=== PATIENT | male | born 1960 | race Caucasian/White ===

== ENCOUNTER 2017-02-23 19:44 | Inpatient (IN) | payer OTHER ==
[~2017-02-23] VITALS: Ht 208.3 cm; Wt 88.0 kg
[2017-02-23] MEDS ORDERED: LISINOPRIL10 M1 PO (20:00)
[2017-02-23] MEDS ORDERED: ALPRAZOLAM1 M2 PO (20:00)
--- NOTE | 2017-02-23 20:00 | ED GENERAL ADULT ---
History of Present Illness General Chief Complaint: General Adult Stated Complaint: BIBA SEPSIS Source: patient, EMS Exam Limitations: no limitations Vital Signs & Intake/Output Vital Signs & Intake/Output Vital Signs Date Time Temp Pulse Resp B/P B/P Pulse O2 O2 Flow FiO2 Mean Ox Delivery Rate 02/23 2043 99.1 95 18 121/67 98 Room Air Room Air 02/24 2032 97 Room Air Room Air 02/24 2004 100.0 98 18 116/60 99 Room Air Allergies Coded Allergies: No Known Allergies (02/23/17) Reconcile Medications Acetaminophen (Tylenol Extra Strength) 500 MG TABLET 2 TAB PO PRN PAIN ( Reported) Alprazolam 1 MG TABLET 1 TAB PO QHS PRN ANXIETY (Reported) Bupropion HCl (Bupropion XL) 300 MG TAB.ER.24H 1 TAB PO DAILY MENTAL HEALTH ( Reported) Dextroamphetamine/Amphetamine (Dextroamp-Amphet ER 20 MG Cap) 20 MG CAP.ER.24H 1 CAP PO QAM UNKNOWN (Reported) Dextroamphetamine/Amphetamine (Dextroamp-Amphetamine 5 MG Tab) 5 MG TABLET 1 TAB PO DAILY UNKNOWN (Reported) Ergocalciferol (Vitamin D2) (Vitamin D2) 50,000 UNIT CAPSULE 1 CAP PO QW SUPPLEMENT (Reported) Insulin Lispro (Humalog Kwikpen U-100) 100 UNIT/ML INSULN.PEN 20 UNITS SC TIDAC DM (Reported) Insulin NPH Human Isophane (Humulin N Kwikpen) 100 UNIT/ML (3 ML) INSULN.PEN 20 UNITS SC QHS DM (Reported) Lipase/Protease/Amylase ([place] 36,000 Units Capsule) 36K-114K CAPSULE.DR 3 CAP PO TIDAC PANCREATIC ENZYMES (Reported) Lisinopril 10 MG TABLET 1 TAB PO DAILY BP (Reported) Triage Note: 56 YEAR OLD MALE BIBA FROM HOME C/O CONFUSION PER . PER EMS PT WAS FOUND HYPOTENSIVE ON ARRIVAL 70/30. HX OF DIABETES AND WOUND TO RIGHT FOOT. PT ARRIVES TO ED ALERT TO PERSON, DENIES PAIN AT THIS TIME. Triage Nurses Notes Reviewed? yes Onset: Gradual Duration: getting worse Timing: recent history Injury Environment: home Severity: severe Severity Numbers: 10 HPI: Patient is a 56-year-old male with past medical history of uncontrolled type 2 insulin-dependent diabetes, hypertension, anxiety and ADHD who presents emergency room BIBA FOR concerns of an infected right foot. 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 NELSON referred patient to a engraver [employer] [facility] for concerns of uncontrolled diabetes where he states that last week he received CAT scans of "his entire body" with unremarkable findings. Patient does state in the past 6 months he said it 50 pound weight loss unintentional and states that he's been tired and weak. Patient states in the last 4 days he's noticed a gradual onset of malodorous smell to his right foot and redness swelling and discharge. Patient denies any mechanism of injury EMS state the patient was receiving 250 mL bolus of IV fluids and do confirm the malodorous smell the right foot however it is bandaged prior to being evaluated by me Patient denies any pain denies any fever or chills cough shortness of breath patient is an every day smoker (ALICE GREWAL) Past History Medical History Any Pertinent Medical History? none Other Medical Hx: uncontrolled type 2 insulin-dependent diabetes, hypertension, anxiety and ADHD Surgical History Surgical History: non-contributory Psychosocial History What is your primary language Beninese Family History Hx Contributory? No (ALICE GREWAL) Review of Systems Review of Systems Constitutional: Denies: chills, fever. EENTM: Reports: no symptoms. Respiratory: Reports: no symptoms. Cardiovascular: Reports: no symptoms. GI: Reports: no symptoms. Genitourinary: Reports: no symptoms. Musculoskeletal: Reports: see HPI. Skin: Reports: see HPI. Neurological/Psychological: Reports: no symptoms. Hematologic/Endocrine: Reports: no symptoms. Immunologic/Allergic: Reports: no symptoms. All Other Systems: Reviewed and Negative (ALICE GREWAL) Physical Exam Physical Exam General Appearance: no apparent distress, alert Head: atraumatic Eyes: Bilateral: normal appearance. Ears, Nose, Throat: hearing grossly normal Neck: normal inspection Respiratory: normal breath sounds, chest non-tender Cardiovascular: regular rate/rhythm Peripheral Pulses: 2+ dorsalis pedis (R), 2+ dorsalis pedis (L) Extremities: normal capillary refill Skin: warm/dry Lymphatic: no anterior cervical mirella Comments: Right foot- Noted plantar aspect 7 cm x 5 cm necrotic ulcer noted for 4TH/5TH digit phalangeal circumferential necrotic ESCHAR Noted third digit phalangeal circumferential PALLOR Noted entire foot erythema warmth Core Measures ACS in differential dx? No CVA/TIA Diagnosis: No Severe Sepsis Present: No Septic Shock Present: No (JESSIKA LAL,ALICE) Progress Differential Diagnoses I considered the following diagnoses in my evaluation of the patient: [ Osteomyelitis, sepsis, cellulitis, diabetic foot, and ] Plan of Care: Orders Procedure Date/time Status Nothing by Mouth 02/24 B Active BLOOD CULTURE 02/23 2101 Active FingerStick- Glucose 02/23 2051 Active Add-on Test (ER Only) 02/23 2049 Active TYPE & SCREEN (NOT X-MATCH) 02/23 2049 Active Transfer patient to 02/24 2048 Active Admit to inpatient 02/24 2048 Active Patient Data 02/24 2048 Active Vital Signs 02/24 2048 Active Add-on Test (ER Only) 02/24 2032 Active BLOOD CULTURE 02/23 2013 Active COMPREHENSIVE METABOLIC PANEL 02/23 2013 Complete CBC WITHOUT DIFFERENTIAL 02/23 2013 Active PARTIAL THROMBOPLASTIN TIME 02/23 2010 Complete PROTHROMBIN TIME 02/23 2010 Complete LACTIC ACID 02/23 2010 Complete WESTERGREN SED RATE 02/23 2010 Active C-REACTIVE PROTEIN 02/23 2010 Complete EKG 02/23 1946 Active Laboratory Tests 02/23/17 2010: Anion Gap 17 H, Estimated GFR 45 L, BUN/Creatinine Ratio 33.1 H, Glucose 295 H, Lactic Acid 1.2, Calcium 8.8, Total Bilirubin 1.2, AST 40, ALT 52, Alkaline Phosphatase 137 H, C-Reactive Prot, Quant > 9.0 H, Total Protein 5.6 L, Albumin 2.9 L, Globulin 2.7, Albumin/Globulin Ratio 1.1, PT 14.6 H, INR 1.40 H, APTT 31, CBC w Diff MAN DIFF ORDERED, RBC 3.27 L, MCV 91.4, MCH 31.0, RDW 13.6, MPV 7.5, Gran % 89.8 H, Lymphocytes % 4.8 L, Monocytes % 4.8, Eosinophils % 0.3, Basophils % 0.3, Absolute Granulocytes 40.9 H, Absolute Lymphocytes 2.2, Absolute Monocytes 2.2 H, Absolute Eosinophils 0.1, Absolute Basophils 0.2, Platelet Estimate ADEQUATE, Normocytic RBCs VERIFIED, Normochromic RBCs VERIFIED, PUBS MCHC 33.9, ESR Westergren 112 H Microbiology 02/24 2148 BLOOD: Blood Culture - RECD 02/23 2010 BLOOD: Blood Culture - RECD Initially there was significant concerns of cellulitis gangrene and concern of osteomyelitis. I initially discussed patient with Dr. Luong who advised patient to not receive antibiotics in which he will require patient to receive surgical intervention for concerns of patient's right foot. IV fluid resuscitation was administered patient was nothing by mouth I discussed disposition plan with patient who is aware and agrees (ALICE GREWAL) Diagnostic Imaging: Viewed by Me: Radiology Read. Radiology Impression: SEE COMMENTS Initial ED EKG: normal p-waves, normal QRS complex, normal sinus rhythm, 101 NSR Comments: PATIENT: ANGEL EDMONDS PRESENT AGE: 56 PATIENT ACCOUNT NO: [id number] : 58 LOCATION: [facility] ORDERING PHYSICIAN: ALICE LAL SERVICE DATE: 02/23/17 EXAM TYPE: RAD - XRY-FOOT COMPLETE, R EXAMINATION: XR FOOT, RIGHT CLINICAL INFORMATION: Right foot infection. Necrotic fourth and fifth toes COMPARISON: None TECHNIQUE: AP, lateral, and oblique views of the right foot. FINDINGS: Prominent soft tissue gas is seen throughout the foot. This extends to the level of the midfoot at the dorsal aspect of the foot and to the level of the hindfoot on the plantar aspect of the foot. There is hyperlucency of the fourth digit middle phalanx which is incompletely evaluated on the provided views. No additional evidence of erosion. Alignment is maintained. Diffuse soft tissue swelling. Small Achilles heel spur. IMPRESSION: Soft tissue gas. Diffuse soft tissue swelling. Increased lucency of the fourth digit middle phalanx is partially evaluated. Osteomyelitis at this location is a consideration. No definite erosions seen. This could be further evaluated by MRI if clinically indicated.. PATIENT: ANGEL EDMONDS PRESENT AGE: 56 PATIENT ACCOUNT NO: [id number] : 58 LOCATION: ER ORDERING PHYSICIAN: ALICE LAL SERVICE DATE: 02/23/17 EXAM TYPE: RAD - XRY-PORTABLE CHEST XRAY EXAMINATION: XR PORTABLE CHEST CLINICAL INFORMATION: Fever COMPARISON: Prior chest November 2007 TECHNIQUE: Portable frontal view of the chest was obtained. FINDINGS: No significant abnormality is noted involving the heart, lungs, mediastinum, bony thorax or soft tissues. Metallic necklace still in place partially obscuring portions of the lower neck IMPRESSION: Unremarkable examination. (ALICE GREWAL) Departure Departure Disposition: STILL A PATIENT Condition: Stable Clinical Impression Primary Impression: Gangrene of right foot Secondary Impressions: Cellulitis of foot, right Referrals: SHARIFA VILA MD (PCP/Family) Departure Forms: Customer Survey General Discharge Information Admission Note Spoke With: REBECA JON DO Documentation of Exam: Documentation of any treatments & extenuating circumstances including Concerns Regarding Discharge (functional status, medication knowledge or non-compliance, living conditions, etc.) that warrant an admission rather than observation: [ Discussed patient with who agrees with general medicine admission for concerns of gangrenous right foot and osteomyelitis and cellulitis. Patient requires podiatry consultation, surgical intervention, MRI, blood culture pending and antibiotics outpatient treatment at this time would be medically harmful] (ALICE GREWAL) PA/SHADE MAKER Co-Sign Statement Statement: ED Attending supervision documentation- x I saw and evaluated the patient. I have also reviewed all the pertinent lab results and diagnostic results. I agree with the findings and the plan of care as documented in the PA's/SHADE MAKER's documentation. [] I have reviewed the ED Record and agree with the PA's/SHADE MAKER's documentation. [] Additions or exceptions (if any) to the PAs/SHADE MAKER's note and plan are summarized below: [] (LUCHO PENALOZA,RODRIGUEZ) Critical Care Note Critical Care Note Critical Care Time: 30-74 min (LAICE GREWAL)
[2017-02-23] MEDS ORDERED: CREON DR 36,001 EAC1 PO (20:01)
[2017-02-23] MEDS ORDERED: DEXTROAMP-AMPHET5 MG PO (20:02)
[2017-02-23] MEDS ORDERED: DEXTROAMP-AMPHE20 M1 PO (20:02)
[2017-02-23] MEDS ORDERED: HUMALOG KW100 UNIT/1 SC (20:03)
[2017-02-23] MEDS ORDERED: BUPROPION XL300 M1 PO (20:03)
[2017-02-23] MEDS ORDERED: VITAMIN D250000 UNIT PO (20:03)
[2017-02-23] MEDS ORDERED: HUMULIN N100 UNIT/2 SC (20:04)
[2017-02-23] MEDS ORDERED: TYLENOL EXTRA500 M2 PO (20:05)
[2017-02-23 20:23] LABS: EOSINOPHIL % 0.3 % (0-5)
[2017-02-23 20:26] LABS: ABSOLUTE BASOPHIL COUNT 0.2 /CUMM (0.0-0.2); ABSOLUTE EOSINOPHIL COUNT 0.1 /CUMM (0.0-0.7); ABSOLUTE GRANULOCYTE CT 40.9 /CUMM (1.4-6.5); ABSOLUTE LYMPH COUNT 2.2 /CUMM (1.2-3.4); ABSOLUTE MONOCYTE COUNT 2.2 /CUMM (0.10-0.60); BASOPHIL % 0.3 % (0.0-2.0); HEMATOCRIT 29.9 % (42-52); MEAN CORPUSCULAR HGB CONC 33.9 G/DL (33.0-37.0); MEAN CORPUSCULAR VOLUME 91.4 FL (80.0-94.0); MEAN PLATELET VOLUME 7.5 FL (7.4-10.4); PLATELET COUNT 318 /CUMM (130-400); RBC DISTRIBUTION WIDTH 13.6 % (11.5-14.5); RED BLOOD CELL CT 3.27 /CUMM (4.70-6.10)
[2017-02-23 20:32] LABS: GRANULOCYTE % 89.8 % (42.2-75.2); WHITE BLOOD CELL COUNT 45.6 /CUMM (4.8-10.8)
[2017-02-23 21:03] LABS: PT 14.6 SEC (9.4-12.5); PTT 31 SEC (25-37)
--- NOTE | 2017-02-23 21:46 | RADIOLOGY REPORT ---
EXAMINATION: XR FOOT, RIGHT CLINICAL INFORMATION: Right foot infection. Necrotic fourth and fifth toes COMPARISON: None TECHNIQUE: AP, lateral, and oblique views of the right foot. FINDINGS: Prominent soft tissue gas is seen throughout the foot. This extends to the level of the midfoot at the dorsal aspect of the foot and to the level of the hindfoot on the plantar aspect of the foot. There is hyperlucency of the fourth digit middle phalanx which is incompletely evaluated on the provided views. No additional evidence of erosion. Alignment is maintained. Diffuse soft tissue swelling. Small Achilles heel spur. IMPRESSION: Soft tissue gas. Diffuse soft tissue swelling. Increased lucency of the fourth digit middle phalanx is partially evaluated. Osteomyelitis at this location is a consideration. No definite erosions seen. This could be further evaluated by MRI if clinically indicated..
--- NOTE | 2017-02-23 21:48 | RADIOLOGY REPORT ---
EXAMINATION: XR PORTABLE CHEST CLINICAL INFORMATION: Fever COMPARISON: Prior chest November 2007 TECHNIQUE: Portable frontal view of the chest was obtained. FINDINGS: No significant abnormality is noted involving the heart, lungs, mediastinum, bony thorax or soft tissues. Metallic necklace still in place partially obscuring portions of the lower neck IMPRESSION: Unremarkable examination.
--- NOTE | 2017-02-23 22:00 | History & Physical Pre-Op ---
General Information and HPI History of Present Illness: Lisandra is a 56-year-old insulin-dependent diabetic who presents with gas gangrene right foot. According to the patient, his right foot was in its usual state of wellness until 4 days ago when he noticed color changes and an odor from his right foot. Patient admits to poorly controlled glucoses over the past week. Patient also admits to subjective fevers and chills over the past week. Patient states that his appetite has been diminished over the past 4 or 5 days. Allergies/Medications Allergies: Coded Allergies: No Known Allergies (02/23/17) Home Med list Acetaminophen (Tylenol Extra Strength) 500 MG TABLET 2 TAB PO PRN PAIN ( Reported) Alprazolam 1 MG TABLET 1 TAB PO QHS PRN ANXIETY (Reported) Bupropion HCl (Bupropion XL) 300 MG TAB.ER.24H 1 TAB PO DAILY MENTAL HEALTH ( Reported) Dextroamphetamine/Amphetamine (Dextroamp-Amphet ER 20 MG Cap) 20 MG CAP.ER.24H 1 CAP PO QAM UNKNOWN (Reported) Dextroamphetamine/Amphetamine (Dextroamp-Amphetamine 5 MG Tab) 5 MG TABLET 1 TAB PO DAILY UNKNOWN (Reported) Ergocalciferol (Vitamin D2) (Vitamin D2) 50,000 UNIT CAPSULE 1 CAP PO QW SUPPLEMENT (Reported) Insulin Lispro (Humalog Kwikpen U-100) 100 UNIT/ML INSULN.PEN 20 UNITS SC TIDAC DM (Reported) Insulin NPH Human Isophane (Humulin N Kwikpen) 100 UNIT/ML (3 ML) INSULN.PEN 20 UNITS SC QHS DM (Reported) Lipase/Protease/Amylase (Aguila Dr 36,000 Units Capsule) 36K-114K CAPSULE.DR 3 CAP PO TIDAC PANCREATIC ENZYMES (Reported) Lisinopril 10 MG TABLET 1 TAB PO DAILY BP (Reported) Past History Medical History Endocrine: diabetes Other Medical Hx: uncontrolled type 2 insulin-dependent diabetes, hypertension, anxiety and ADHD Surgical History Pertinent Surgical History: non-contributory Review of Systems Review of Systems: Unremarkable except for that noted in history present illness Exam & Diagnostic Data Last 24 Hrs of Vital Signs/I&O Vital Signs Date Time Temp Pulse Resp B/P B/P Pulse O2 O2 Flow FiO2 Mean Ox Delivery Rate 02/23 2043 99.1 95 18 121/67 98 Room Air Room Air 02/24 2032 97 Room Air Room Air 02/24 2004 100.0 98 18 116/60 99 Room Air Physical Exam: Gangrene noted to the right foot involving the lateral third rays with fluctuance or crepitus noted dorsally extending to the margins foot region. A full-thickness necrotic wound is noted emanating plantarly from the lateral third rays and extending proximally to the distal heel. Again, fluctuance or crepitus identified plantarly. There is a significant foul odor noted from the wound bed as well. Soft tissue emphysema is noted dorsally and plantarly on the x-ray. Assessment/Plan Assessment/Plan: Sepsis and gas gangrene right foot. Discussed the need for an urgent open lateral foot amputation with decompression of the plantar space. Patient understands he is at significant risk for limb loss. As Ranked By This Provider Problem List: 1. Gangrene of right foot 2. Cellulitis of foot, right Attending MD Review Statement Attending Statement Attending MD Statement: examined this patient
--- NOTE | 2017-02-23 23:54 | Operative Report ---
Operative/Inv Procedure Report Surgery Date: 02/23/17 Name of Procedure: 1 open incision and drainage deep to the deep fascia with exposure of the extensor and flexor tendon and tendon sheath multiple sites right foot 2 open partial third fourth and fifth ray resections right foot 3 intraoperative administration of ankle block anesthesia 4 excisional debridement Pre-Operative Diagnosis: 1 gas gangrene right foot 2 plantar space abscess right foot 3 osteomyelitis right foot 4 diabetic peripheral neuropathy Post-Operative Diagnosis: The same Estimated Blood Loss: less than 50ml Surgeon/Franchise Field Consultant: ANNMARIE JASMINE DPM Anesthesia: moderate sedation, block Operative/Procedure Note Note: After obtaining informed consent the patient was brought to the operating room and placed on the operating table in supine position. The patient was then securely fastened to the operating table utilizing safety belt. After administration of IV sedation, 20 mL of 0.5% Marcaine plain was infiltrated about the patient's right ankle. The right foot and ankle within scrubbed prepped and draped in usual aseptic manner. Attention was directed to the right foot, where a necrotic and foul-smelling wound encompassing the lateral third fourth and fifth rays was identified. Plantarly, there was necrosis and the plantar space abscess. A fishmouth-type incision encompassing the distal third fourth and fifth rays was marked out and the skin was incised full-thickness down to the bone. A sagittal bone saw was utilized to perform through and through osteotomies to the distal third fourth and fifth rays. The distal osseous segments were freed and passed from the operative field. Both soft tissue and bone specimen was sent for microbiologic inspection. The dissection then continued plantarly where there was significant necrosis and foul-smelling purulence identified. The dissection was carried down deep to the deep fascia and exposure of the flexor tendon and tendon sheath multiple sites, both proximally and distally. All necrotic nonviable infected tissue sharply evacuated from the wound bed. The open wound was then irrigated with 3 L of normal sterile saline infused with 50,000 units of bacitracin. Following this, the foot was redraped and the surgeon's top gloves were changed clean gloves. Any bleeding vessels identified were cauterized or ligated as encountered. The foot was then packed with iodoform followed by 4 x 4's EBD pad Kerlix and an Jemal wrap. The patient was noted to tolerate both procedure and anesthesia well and the patient was transported from the operating room to recovery with vital signs stable.
[2017-02-24] VITALS (7 sets, daily range): BP systolic 110–140; BP diastolic 56–70
--- NOTE | 2017-02-24 00:31 | History & Physical ---
General Information and HPI MD Statement: I have seen and personally examined ANGEL EDMONDS and documented this H&P. The patient is a 56 year old M who presented with a patient stated chief complaint of [56-year-old male presented to the emergency department for admission for cellulitis and osteomyelitis of the right foot. The patient has had 4 days of progressive redness and foul-smelling discharge from the right foot with fever]. History of Present Illness: Patient was taken to the operating room for partial amputation of the right foot Allergies/Medications Allergies: Coded Allergies: No Known Allergies (02/23/17) Home Med list Acetaminophen (Tylenol Extra Strength) 500 MG TABLET 2 TAB PO PRN PAIN ( Reported) Alprazolam 1 MG TABLET 1 TAB PO QHS PRN ANXIETY (Reported) Bupropion HCl (Bupropion XL) 300 MG TAB.ER.24H 1 TAB PO DAILY MENTAL HEALTH ( Reported) Dextroamphetamine/Amphetamine (Dextroamp-Amphet ER 20 MG Cap) 20 MG CAP.ER.24H 1 CAP PO QAM UNKNOWN (Reported) Dextroamphetamine/Amphetamine (Dextroamp-Amphetamine 5 MG Tab) 5 MG TABLET 1 TAB PO DAILY UNKNOWN (Reported) Ergocalciferol (Vitamin D2) (Vitamin D2) 50,000 UNIT CAPSULE 1 CAP PO QW SUPPLEMENT (Reported) Insulin Lispro (Humalog Kwikpen U-100) 100 UNIT/ML INSULN.PEN 20 UNITS SC TIDAC DM (Reported) Insulin NPH Human Isophane (Humulin N Kwikpen) 100 UNIT/ML (3 ML) INSULN.PEN 20 UNITS SC QHS DM (Reported) Lipase/Protease/Amylase ([place] Dr 36,000 Units Capsule) 36K-114K CAPSULE.DR 3 CAP PO TIDAC PANCREATIC ENZYMES (Reported) Lisinopril 10 MG TABLET 1 TAB PO DAILY BP (Reported) Past History Travel History Traveled to [place] past 21 day No Medical History Endocrine: diabetes Other Medical Hx: uncontrolled type 2 insulin-dependent diabetes, hypertension, anxiety and ADHD Surgical History Surgical History: non-contributory Past Family/Social History Family History Relations & Conditions if any Family history was reviewed; no changes noted. Review of Systems Review of Systems Constitutional: Reports: fever. EENTM: Reports: no symptoms. Cardiovascular: Reports: no symptoms. Respiratory: Reports: no symptoms. GI: Reports: no symptoms. Genitourinary: Reports: no symptoms. Musculoskeletal: Reports: see HPI. Skin: Reports: see HPI. Neurological/Psychological: Reports: no symptoms. Hematologic/Endocrine: Reports: no symptoms. Immunologic/Allergic: Reports: no symptoms. All Other Systems: Reviewed and Negative Exam & Diagnostic Data Last 24 Hrs of Vital Signs/I&O Vital Signs Date Time Temp Pulse Resp B/P B/P Pulse O2 O2 Flow FiO2 Mean Ox Delivery Rate 02/24 2232 99.6 92 18 133/72 97 Room Air Room Air 02/23 2043 99.1 95 18 121/67 98 Room Air Room Air 02/24 2032 97 Room Air Room Air 02/24 2004 100.0 98 18 116/60 99 Room Air Intake & Output 02/24 0800 02/24 0000 02/23 1600 Intake Total 1000 Output Total Balance 1000 Intake, IV 1000 Patient 195 lb Weight Weight Reported by Patient Measurement Method Physical Exam General Appearance Alert, Oriented X3, Cooperative Skin erythema and ulceration right foot Skin Temp/Moisture Exam: Warm/Dry Sepsis Skin Exam (color): Normal for Ethnicity HEENT Atraumatic, PERRLA, EOMI Neck Supple Lymphatic Axillary nl Cardiovascular Regular Rate Lungs Clear to Auscultation Neurological Normal Speech Extremities redness, discharge , right foor redness, swelling, discharge right fooot Assessment/Plan Assessment: Neck chronic ulceration, osteomyelitis and cellulitis to the right foot The patient will be taken to the OR for amputation. As Ranked By This Provider Problem List: 1. Cellulitis of foot, right 2. Gangrene of right foot Core Measures/Miscellaneous Acute Coronary Syndrome ACS Diagnosis: No Cerebrovascular Accident CVA/TIA Diagnosis: No Congestive Heart Failure CHF Diagnosis: No Venous Thromboembolism VTE Risk Factors: [facility] prophylaxis d/t: No contraindications No VTE Pharm Prophylaxis d/t: No contraindications VTE Diagnosis: No VTE Type: NONE VTE Confirmed by (Test): NONE Severe Sepsis Severe Sepsis Present: No Septic Shock Septic Shock Present: No Miscellaneous Documentation Attending Case Discussed With: ANNMARIE JASMINE DPM Primary Care Physician: SHARIFA VILA MD Patient sees these Specialists Level of Patient Care: General Surgical
[2017-02-24 06:26] LABS: ABSOLUTE BASOPHIL COUNT 0 /CUMM (0.0-0.2); ABSOLUTE EOSINOPHIL COUNT 0.1 /CUMM (0.0-0.7); ABSOLUTE GRANULOCYTE CT 39.1 /CUMM (1.4-6.5); ABSOLUTE LYMPH COUNT 1.7 /CUMM (1.2-3.4); BASOPHIL % 0.1 % (0.0-2.0); EOSINOPHIL % 0.3 % (0-5); HEMATOCRIT 28.2 % (42-52); MEAN CORPUSCULAR HGB 30.7 PG (27.0-31.0); MEAN CORPUSCULAR HGB CONC 33.4 G/DL (33.0-37.0); MEAN PLATELET VOLUME 7.3 FL (7.4-10.4); PLATELET COUNT 312 /CUMM (130-400); RBC DISTRIBUTION WIDTH 13.9 % (11.5-14.5); RED BLOOD CELL CT 3.07 /CUMM (4.70-6.10)
--- NOTE | 2017-02-24 07:04 | Event Note ---
Event Note Event Note: Post op Day 0 Uneventful recovery and tranfer from ICU to marked laukocytosis; however patients vital remained stable. The site of the surgery is scoverred in dressing, beyond the amputation site there is no redness, warmth or tenderness. Am lab showed minimal improvement of Leukocytosis, if at all. I reviewed the Operative report. It seems that patient suffered from a non-traumatic gangrene of his amputated toes. Patient medication chart does not show any pre-op or post op Abx. I was concerned about leaving the patient unattended. The treatment for gangrene is Abx in combination with surgical debridment. The recommended regimen is IV penicillin 3-4 millions QD plus IV clindamycin 900 mg Q8h. I discussed this matter with Dr. Peres over the phone. My attending wanted to start IV clindamycin for now. I will ask the am team to call Dr. Luong and or Mary regarding IV Anx. Thanks
--- NOTE | 2017-02-24 10:19 | Cons- Medical ---
HUA MALHOTRA MD 02/24/17 1019: General Information and HPI Consulting Request Date of Consult: 02/24/17 Requested By: ANNMARIE JASMINE DPM History of Present Illness: This 56-year-old male with a past medical history of insulin-dependent diabetes mellitus,, ADHD, anxiety and depression, chronic pancreatitis presented to the [facility] 24 hours back when he noticed wound in his and his third and the fourth right toe, worsening in the last 4 days. He first noticed the wound 4 days back which has been worsening since then. The patient was admitted under the surgical service, and the medical team is not being consulted for medical comanagement. The patient is a poor historian and most of history was obtained from the patient's . She noticed blackiish and very foul smeliing wound on his right toe.,mostly on th sole and 3rd and 4th toes. She also noticed moderate purulent discharge from the wound.The patient wasrsistent to seek any medical advice and kept soaking his wound in the salt water ,which worsened his wound. Yesterday() the patient was confused ,lethargic diapohertic with shakes and rigors.The called the EMS yesterday and was then brouught to the ER for furher evlauation. As per the patient and his the patient has had 50 pound unintentional weight loss, he was referred to her weight count operator Justin Peter MD. CT abdomen pelvis with IV contrast was done on February 22 we did not show anything significant except for chronic pancreatitis. Allergies/Medications Allergies: Coded Allergies: No Known Allergies (02/23/17) Review of Systems Review of Systems Constitutional: Reports: see HPI. Denies: chills, diaphoresis, fever, malaise. EENTM: Reports: see HPI. Denies: double vision, visual changes. Cardiovascular: Reports: see HPI. Denies: chest pain, edema, orthopena. Respiratory: Denies: cough, hemoptysis, orthopnea, short of breath, sputum production. GI: Denies: abdominal pain, bloating, constipation, diarrhea, distention. Past History Travel History Traveled to [place] past 21 day No Medical History Blood Transfusion Hx: No Endocrine: diabetes Other Medical Hx: uncontrolled type 2 insulin-dependent diabetes, hypertension, anxiety and ADHD Surgical History Surgical History: non-contributory Family History Relations & Conditions If Any: MOTHER Relation not specified for: FH: diabetes mellitus Psychosocial History Where Do You Live? Home Services at Home: None Primary Language: Turkish Smoking Status: Current Some Day Smoker ETOH Use: heavy use Exam & Diagnostic Data Last 24 Hrs of Vital Signs/I&O Vital Signs Date Time Temp Pulse Resp B/P B/P Pulse O2 O2 Flow FiO2 Mean Ox Delivery Rate 02/24 0815 97.8 93 20 130/60 97 Room Air 02/24 0701 99.5 101 20 130/56 97 Room Air 02/24 0404 99.1 101 20 110/60 97 Room Air 02/24 0147 99.3 97 20 122/70 98 Room Air 02/23 2232 99.6 92 18 133/72 97 Room Air Room Air 02/23 204 99.1 95 18 121/67 98 Room Air Room Air 02/23 203 97 Room Air Room Air 02/24 2004 100.0 98 18 116/60 99 Room Air Intake & Output 02/24 1600 02/24 0800 02/24 0000 Intake Total 150 1000 Output Total 200 400 Balance -200 -250 1000 Intake, IV 1000 Intake, Oral 150 Number 1 0 Bowel Movements Output, Urine 200 400 Patient 195 lb 195 lb Weight Weight Reported by Patient Measurement Method Physical Exam General Appearance: well developed/nourished, no apparent distress, alert Last 24 Hrs of Labs/Steven: Laboratory Tests 02/24/17 0616: Anion Gap 17 H, Estimated GFR > 60, BUN/Creatinine Ratio 35.0 H, CBC w Diff MAN DIFF ORDERED, RBC 3.07 L, MCV 92.0, MCH 30.7, RDW 13.9, MPV 7.3 L, Gran % 91.0 H, Lymphocytes % 3.9 L, Monocytes % 4.7, Eosinophils % 0.3, Basophils % 0.1, Absolute Granulocytes 39.1 H, Segmented Neutrophils 86 H, Band Neutrophils 3, Absolute Lymphocytes 1.7, Lymphocytes 6 L, Monocytes 4, Absolute Monocytes 2.0 H, Eosinophils 1, Absolute Eosinophils 0.1, Absolute Basophils 0, Platelet Estimate ADEQUATE, Polychromasia 1+, Poikilocytosis 1+, Ovalocytes 1+, PUBS MCHC 33.4, Fld Total RBCs Counted 100 02/24/17 0600: Hemoglobin A1c 9.2 H 02/23/172009: Anion Gap 17 H, Estimated GFR 45 L, BUN/Creatinine Ratio 33.1 H, Glucose 295 H, Lactic Acid 1.2, Calcium 8.8, Total Bilirubin 1.2, AST 40, ALT 52, Alkaline Phosphatase 137 H, C-Reactive Prot, Quant > 9.0 H, Total Protein 5.6 L, Albumin 2.9 L, Globulin 2.7, Albumin/Globulin Ratio 1.1, PT 14.6 H, INR 1.40 H, APTT 31, CBC w Diff MAN DIFF ORDERED, RBC 3.27 L, MCV 91.4, MCH 31.0, RDW 13.6, MPV 7.5, Gran % 89.8 H, Lymphocytes % 4.8 L, Monocytes % 4.8, Eosinophils % 0.3, Basophils % 0.3, Absolute Granulocytes 40.9 H, Absolute Lymphocytes 2.2, Absolute Monocytes 2.2 H, Absolute Eosinophils 0.1, Absolute Basophils 0.2, Platelet Estimate ADEQUATE, Normocytic RBCs VERIFIED, Normochromic RBCs VERIFIED, PUBS MCHC 33.9, ESR Westergren 112 H Assessment/Plan Assessment/Plan This is a 56 Y/O IDDM with acute purulent ,folul smelling wound on his right foot who came to ER with sepsis secondary to the foot wound. He was found to be hypotensive and confused in the ER and is now S/P day 1 open incision and drainage deep to the deep fascia with exposure of the extensor and flexor tendon and tendon sheath multiple sites right foot ,open partial third fourth and fifth ray resections right foot and excisional debridement. Vitals at time of admission was temperature: 100.9,70/30,101,97% at R.A Labs: WBC 43.0,Hb 9.4 hct 28.2 Normal chemitries EKG: NSR ASsessment: 1. Diabetic foot osteomyelitis and Gas gangrene of the third and the fourth toe status post debridement 2. Uncontrolled diabetes 3. Acute weight loss 4. Alcohol dependence 5. Chronic pancreatitis and pancreatic enzyme supplementation 6. History of ADHD and depression Plan We recommend strict sugar control, we can start the patient on 10 units of Levemir twice a day and NovoLog sliding scale with the BEDTIME SCALE will check HBa1c Antibiotics as per ID for now continue with clindamycin., The patient needs staph and strep coverage e as well as coverage for MRSA and anaerobes, considering purulent discharge and foul smelling wound.. We can consider Vancomycin and Falgyl ,but will await final recommendations from ID. Continue with pancreatic enzyme supplementation Patient has an open wound, and possible plan for repeat debridement again. PT evaluation after debridement Patient does not have acive alcohol withdrawal but will check serum alcohol levels. Problem List: 1. Cellulitis of foot, right 2. Gangrene of right foot Consult Acknowledgment - Thank you for your consult request. LUCILAJORGE ALBERTO 02/24/17 4127: General Information and HPI Allergies/Medications Home Med List: Acetaminophen (Tylenol Extra Strength) 500 MG TABLET 2 TAB PO PRN PAIN ( Reported) Alprazolam 1 MG TABLET 1 TAB PO QHS PRN ANXIETY (Reported) Bupropion HCl (Bupropion XL) 300 MG TAB.ER.24H 1 TAB PO DAILY MENTAL HEALTH ( Reported) Dextroamphetamine/Amphetamine (Dextroamp-Amphet ER 20 MG Cap) 20 MG CAP.ER.24H 1 CAP PO QAM anxiety (Reported) Dextroamphetamine/Amphetamine (Dextroamp-Amphetamine 5 MG Tab) 5 MG TABLET 1 TAB PO DAILY 1400 ANXIETY (Reported) Ergocalciferol (Vitamin D2) (Vitamin D2) 50,000 UNIT CAPSULE 1 CAP PO QW SUPPLEMENT (Reported) Insulin Lispro (Humalog Kwikpen U-100) 100 UNIT/ML INSULN.PEN 20 UNITS SC TIDAC DM (Reported) Insulin NPH Human Isophane (Humulin N Kwikpen) 100 UNIT/ML (3 ML) INSULN.PEN 20 UNITS SC QHS DM (Reported) Lipase/Protease/Amylase (Aguila Dr 36,000 Units Capsule) 36K-114K CAPSULE.DR 3 CAP PO TIDAC PANCREATIC ENZYMES (Reported) Lisinopril 10 MG TABLET 1 TAB PO DAILY BP (Reported) Assessment/Plan Consult Acknowledgment - Thank you for your consult request. Attending MD Review Statement Attending Statement Attending MD Statement: examined this patient, discuss w/resident/PA/PICU NURSE, agreed w/resident/PA/PICU NURSE, reviewed EMR data (avail), reviewed images, amended to note Attending Assessment/Plan: 56 yo m with PMHx DM, ADHD, Anxiety/ depression and chronic pancreatitis, presented with wound on his third and the fourth right toe, worsening since 4 days. He underwent I and D under anaesthesia on 02/23/17. ID was consulted and abx changed from Clinda to Unasyn. currently patient denies any pain/ discomfort. No other complaints. Vital Signs Date Time Temp Pulse Resp B/P B/P Pulse O2 O2 Flow FiO2 Mean Ox Delivery Rate 02/24 1406 99.1 96 20 140/70 98 Room Air 02/24 1134 97.8 89 20 128/60 98 Room Air 02/24 1108 82 130/62 02/24 0815 97.8 93 20 130/60 97 Room Air 02/24 0701 99.5 101 20 130/56 97 Room Air 02/24 0404 99.1 101 20 110/60 97 Room Air 02/24 0147 99.3 97 20 122/70 98 Room Air 02/23 2232 99.6 92 18 133/72 97 Room Air Room Air Afebrile, BP stable On exam: A ox3, no acute distress, Mucosa moist CVS: s1, s2, RRR RS : clear to auscultate Abdo soft, NT, ND, BS present No focal neuro deficit. Right food wound is dressed, not soaking but fowl smell present. Laboratory Tests 02/24 02/24 0616 0600 Chemistry Sodium (137 - 145 mmol/L) 132 L Potassium (3.5 - 5.1 mmol/L) 3.9 Chloride (98 - 107 mmol/L) 100 Carbon Dioxide (22 - 30 mmol/L) 14 L Anion Gap (5 - 16) 17 H BUN (9 - 20 mg/dL) 42 H Creatinine (0.7 - 1.2 mg/dL) 1.2 Estimated GFR (>60 ml/min) > 60 BUN/Creatinine Ratio (7 - 25 %) 35.0 H Hemoglobin A1c (4.2 - 5.8 %) 9.2 H Hematology CBC w Diff MAN DIFF ORDERED WBC (4.8 - 10.8 /CUMM) 43.0 *H RBC (4.70 - 6.10 /CUMM) 3.07 L Hgb (14.0 - 18.0 G/DL) 9.4 L Hct (42 - 52 %) 28.2 L MCV (80.0 - 94.0 FL) 92.0 MCH (27.0 - 31.0 PG) 30.7 RDW (11.5 - 14.5 %) 13.9 Plt Count (130 - 400 /CUMM) 312 MPV (7.4 - 10.4 FL) 7.3 L Gran % (42.2 - 75.2 %) 91.0 H Lymphocytes % (20.5 - 51.1 %) 3.9 L Monocytes % (1.7 - 9.3 %) 4.7 Eosinophils % (0 - 5 %) 0.3 Basophils % (0.0 - 2.0 %) 0.1 Absolute Granulocytes (1.4 - 6.5 /CUMM) 39.1 H Segmented Neutrophils (42.2 - 75.2 %) 86 H Band Neutrophils (0.0 - 5.0 %) 3 Absolute Lymphocytes (1.2 - 3.4 /CUMM) 1.7 Lymphocytes (20.5 - 51.1 %) 6 L Monocytes (1.7 - 9.3 %) 4 Absolute Monocytes (0.10 - 0.60 /CUMM) 2.0 H Eosinophils (0 - 5.0 %) 1 Absolute Eosinophils (0.0 - 0.7 /CUMM) 0.1 Absolute Basophils (0.0 - 0.2 /CUMM) 0 Platelet Estimate (ADEQUATE) ADEQUATE Polychromasia 1+ Poikilocytosis 1+ Ovalocytes 1+ PUBS MCHC (33.0 - 37.0 G/DL) 33.4 Other Body Source Fld Total RBCs Counted (%) 100 Toxicology Serum Alcohol (<10 MG/DL) < 10.0 WBC trending down surgical sample shows many GPC and moderate GNR. Blood culture no growth D1 A and P # DM foot infection: Gas gangrene Rt foot s/ P I and D Follow up culture Appreciate ID Afebrile, leucocytosis but trending down Continue Unasyn # Hyponatremia: Improving # YNES Creatinine improved # Uncontrolled DM Continue Basal and Sliding scale insulin # ADHD Continue Ritalin # Chronic pancreatitis Continue creon # HTN Continue lisinopril # DVT prophylaxis and Adequate pain control
--- NOTE | 2017-02-24 10:39 | Event Note ---
Event Note Event Note: 56-year-old male with past medical history of insulin-dependent diabetes mellitus, came into the emergency department with complaints of fall smelling wound on his right foot. He is currently being managed in the general medical floor for the following issues: #Osteomyelitis of third, fourth, and fifth toes right side, status post partial third fourth and fifth ray resections Patient underwent incision and drainage in the emergency department initially and was found to have a deep-seated abscess with tendons exposed. Podiatry service was consulted and he underwent surgery on 02/23/2017 for the condition. The surgery was carried out without any complications. -Continue IV antibiotics, ID consultation regarding choice of antibiotics. -Continue leg elevation -Continue pain management which seems to be adequate right now -Continue following up with podiatry service regarding posture myelitis/ resection #Diabetes mellitus, uncontrolled Patient has been placed on diabetic diet, 10 units of insulin Levemir twice a day as well as sliding scale NovoLog insulin with bedtime scale. -Continue pancreatic enzyme supplementation #Diabetic diet #DVT prophylaxis with SQ Heparin #CODE STATUS full code
--- NOTE | 2017-02-24 15:57 | Cons- Infect Disease ---
General Information and HPI Consulting Request Date of Consult: 02/24/17 Requested By: ELIESER STORY M.D Reason for Consult: Gas gangrene right foot Source of Information: patient History of Present Illness: This is a 56-year-old man with diabetes and chronic pancreatitis admitted on February 23 after presenting to the emergency room with a four-day history of increasing discoloration of the right foot, particularly over the lateral aspect, associated with foul-smelling purulent drainage, fevers and chills and increasing fatigue and lethargy. On admission he was febrile to 100. Laboratory data revealed a white blood cell count of 46,000, ESR 112, BUN/ creatinine 53 and 1.6, glucose 295, sodium 126, alk phosphatase 137. INR 1.40. Chest x-ray was negative. X-ray of the right foot revealed soft tissue gas, with diffuse soft tissue swelling and increased lucency of the fourth digit middle phalanx, suggestive of possible osteomyelitis. He was taken to the OR for an I&D of a plantar space abscess of the right foot, with open partial third , fourth and fifth ray resections. Postop he was begun on Clindamycin. He has remained afebrile overnight and feels improved today, with no specific complaints at this time. Allergies/Medications Allergies: Coded Allergies: No Known Allergies (02/23/17) Home Med List: Acetaminophen (Tylenol Extra Strength) 500 MG TABLET 2 TAB PO PRN PAIN ( Reported) Alprazolam 1 MG TABLET 1 TAB PO QHS PRN ANXIETY (Reported) Bupropion HCl (Bupropion XL) 300 MG TAB.ER.24H 1 TAB PO DAILY MENTAL HEALTH ( Reported) Dextroamphetamine/Amphetamine (Dextroamp-Amphet ER 20 MG Cap) 20 MG CAP.ER.24H 1 CAP PO QAM UNKNOWN (Reported) Dextroamphetamine/Amphetamine (Dextroamp-Amphetamine 5 MG Tab) 5 MG TABLET 1 TAB PO DAILY UNKNOWN (Reported) Ergocalciferol (Vitamin D2) (Vitamin D2) 50,000 UNIT CAPSULE 1 CAP PO QW SUPPLEMENT (Reported) Insulin Lispro (Humalog Kwikpen U-100) 100 UNIT/ML INSULN.PEN 20 UNITS SC TIDAC DM (Reported) Insulin NPH Human Isophane (Humulin N Kwikpen) 100 UNIT/ML (3 ML) INSULN.PEN 20 UNITS SC QHS DM (Reported) Lipase/Protease/Amylase ([place] 36,000 Units Capsule) 36K-114K CAPSULE. 3 CAP PO TIDAC PANCREATIC ENZYMES (Reported) Lisinopril 10 MG TABLET 1 TAB PO DAILY BP (Reported) Past History Travel History Traveled to [place] past 21 day No Medical History Blood Transfusion Hx: No Neurological: peripheral neuropathy Cardiovascular: CAD, hypertension Gastrointestinal: pancreatitis (chronic) Psychiatric: anxiety, depression Endocrine: diabetes History of MRSA: No History of VRE: No History of CDIFF: No Isolation History: Standard Surgical History Surgical History: right lower extremity surgery with hardware in place following a skiing accident Family History Relations & Conditions If Any: MOTHER Relation not specified for: FH: diabetes mellitus Psychosocial History Where Do You Live? Home Services at Home: None Primary Language: Emirati Smoking Status: Current Some Day Smoker ETOH Use: heavy use Review of Systems Review of Systems Constitutional: Reports: unexplained weight loss. All Other Systems: Reviewed and Negative Exam & Diagnostic Data Last 24 Hrs of Vital Signs/I&O Vital Signs Date Time Temp Pulse Resp B/P B/P Pulse O2 O2 Flow FiO2 Mean Ox Delivery Rate 02/24 1406 99.1 96 20 140/70 98 Room Air 02/24 1134 97.8 89 20 128/60 98 Room Air 02/24 1108 82 130/62 02/24 0815 97.8 93 20 130/60 97 Room Air 02/24 0701 99.5 101 20 130/56 97 Room Air 02/24 0404 99.1 101 20 110/60 97 Room Air 02/24 0147 99.3 97 20 122/70 98 Room Air 02/23 2232 99.6 92 18 133/72 97 Room Air Room Air 02/23 2043 99.1 95 18 121/67 98 Room Air Room Air 02/23 203 97 Room Air Room Air 02/23 2004 100.0 98 18 116/60 99 Room Air Intake & Output 02/24 1600 02/24 0800 02/24 0000 Intake Total 150 1000 Output Total 200 400 Balance -200 -250 1000 Intake, IV 1000 Intake, Oral 150 Number 1 0 Bowel Movements Output, Urine 200 400 Patient 195 lb 195 lb Weight Weight Reported by Patient Measurement Method Physical Exam Other Physical Findings: He is awake and alert in no acute distress. He is afebrile. Skin reveals no rash. HEENT exam is negative. Neck is supple with no adenopathy. Lungs are clear. Heart regular rhythm with no murmur. Abdomen is soft, nontender with positive bowel sounds. Back no CVA tenderness. Extremities right lower extremity edema, with deformity of the distal aspect above the ankle; right foot dressing intact; left foot warm with palpable pulses and with no lesions noted.. Neuro neuropathy both feet. Last 24 Hours of Lab Results: Laboratory Tests 02/24 02/24 0616 0600 Chemistry Sodium (137 - 145 mmol/L) 132 L Potassium (3.5 - 5.1 mmol/L) 3.9 Chloride (98 - 107 mmol/L) 100 Carbon Dioxide (22 - 30 mmol/L) 14 L Anion Gap (5 - 16) 17 H BUN (9 - 20 mg/dL) 42 H Creatinine (0.7 - 1.2 mg/dL) 1.2 Estimated GFR (>60 ml/min) > 60 BUN/Creatinine Ratio (7 - 25 %) 35.0 H Hemoglobin A1c (4.2 - 5.8 %) 9.2 H Hematology CBC w Diff MAN DIFF ORDERED WBC (4.8 - 10.8 /CUMM) 43.0 *H RBC (4.70 - 6.10 /CUMM) 3.07 L Hgb (14.0 - 18.0 G/DL) 9.4 L Hct (42 - 52 %) 28.2 L MCV (80.0 - 94.0 FL) 92.0 MCH (27.0 - 31.0 PG) 30.7 RDW (11.5 - 14.5 %) 13.9 Plt Count (130 - 400 /CUMM) 312 MPV (7.4 - 10.4 FL) 7.3 L Gran % (42.2 - 75.2 %) 91.0 H Lymphocytes % (20.5 - 51.1 %) 3.9 L Monocytes % (1.7 - 9.3 %) 4.7 Eosinophils % (0 - 5 %) 0.3 Basophils % (0.0 - 2.0 %) 0.1 Absolute Granulocytes (1.4 - 6.5 /CUMM) 39.1 H Segmented Neutrophils (42.2 - 75.2 %) 86 H Band Neutrophils (0.0 - 5.0 %) 3 Absolute Lymphocytes (1.2 - 3.4 /CUMM) 1.7 Lymphocytes (20.5 - 51.1 %) 6 L Monocytes (1.7 - 9.3 %) 4 Absolute Monocytes (0.10 - 0.60 /CUMM) 2.0 H Eosinophils (0 - 5.0 %) 1 Absolute Eosinophils (0.0 - 0.7 /CUMM) 0.1 Absolute Basophils (0.0 - 0.2 /CUMM) 0 Platelet Estimate (ADEQUATE) ADEQUATE Polychromasia 1+ Poikilocytosis 1+ Ovalocytes 1+ PUBS MCHC (33.0 - 37.0 G/DL) 33.4 Other Body Source Fld Total RBCs Counted (%) 100 Toxicology Serum Alcohol (<10 MG/DL) < 10.0 02/23 2010 Chemistry Sodium (137 - 145 mmol/L) 126 L Potassium (3.5 - 5.1 mmol/L) 4.1 Chloride (98 - 107 mmol/L) 93 L Carbon Dioxide (22 - 30 mmol/L) 15 L Anion Gap (5 - 16) 17 H BUN (9 - 20 mg/dL) 53 H Creatinine (0.7 - 1.2 mg/dL) 1.6 H Estimated GFR (>60 ml/min) 45 L BUN/Creatinine Ratio (7 - 25 %) 33.1 H Glucose (65 - 99 mg/dL) 295 H Lactic Acid (0.7 - 2.1 mmol/L) 1.2 Calcium (8.4 - 10.2 mg/dL) 8.8 Total Bilirubin (0.2 - 1.3 mg/dL) 1.2 AST (17 - 59 U/L) 40 ALT (21 - 72 U/L) 52 Alkaline Phosphatase (< 127 U/L) 137 H C-Reactive Prot, Quant (<1.0 mg/dL) > 9.0 H Total Protein (6.3 - 8.2 g/dL) 5.6 L Albumin (3.5 - 5.0 g/dL) 2.9 L Globulin (1.9 - 4.2 gm/dL) 2.7 Albumin/Globulin Ratio (1.1 - 2.2 %) 1.1 Coagulation PT (9.4 - 12.5 SEC) 14.6 H INR (0.90 - 1.17) 1.40 H APTT (25 - 37 SEC) 31 Hematology CBC w Diff MAN DIFF ORDERED WBC (4.8 - 10.8 /CUMM) 45.6 *H RBC (4.70 - 6.10 /CUMM) 3.27 L Hgb (14.0 - 18.0 G/DL) 10.1 L Hct (42 - 52 %) 29.9 L MCV (80.0 - 94.0 FL) 91.4 MCH (27.0 - 31.0 PG) 31.0 RDW (11.5 - 14.5 %) 13.6 Plt Count (130 - 400 /CUMM) 318 MPV (7.4 - 10.4 FL) 7.5 Gran % (42.2 - 75.2 %) 89.8 H Lymphocytes % (20.5 - 51.1 %) 4.8 L Monocytes % (1.7 - 9.3 %) 4.8 Eosinophils % (0 - 5 %) 0.3 Basophils % (0.0 - 2.0 %) 0.3 Absolute Granulocytes (1.4 - 6.5 /CUMM) 40.9 H Absolute Lymphocytes (1.2 - 3.4 /CUMM) 2.2 Absolute Monocytes (0.10 - 0.60 /CUMM) 2.2 H Absolute Eosinophils (0.0 - 0.7 /CUMM) 0.1 Absolute Basophils (0.0 - 0.2 /CUMM) 0.2 Platelet Estimate (ADEQUATE) ADEQUATE Normocytic RBCs VERIFIED Normochromic RBCs VERIFIED PUBS MCHC (33.0 - 37.0 G/DL) 33.9 ESR Westergren (0 - 10 MM) 112 H Last 24 Hours of Steven Results: Blood cultures 2 February 23 negative OR cultures pending, with gram stain of the specimen labeled tissue right foot revealing moderate white blood cells, many gram-positive cocci and many gram- negative rods and gram stain of the specimen labeled bone right foot revealing rare white blood cells, many gram-positive cocci and moderate gram-negative rods Diagnostic Data Recent Imaging Findings: Chest x-ray negative. X-ray of the right foot revealed soft tissue gas, with diffuse soft tissue swelling and increased lucency of the fourth digit middle phalanx, suggestive of possible osteomyelitis. Assessment/Plan Assessment/Plan Impression: This is a 56-year-old man with diabetes admitted on February 23 with a 4 day history of increasing discoloration of the lateral aspect of the right foot, associated with purulent, foul-smelling drainage, fevers, chills and lethargy, found to have a low-grade fever with a marked leukocytosis and with an x-ray of the foot revealing soft tissue gas consistent with gangrene, now status post I&D of a right foot plantar space abscess and partial amputations of the third, fourth and fifth toes. His clinical picture is consistent with gas gangrene, with evidence of osteomyelitis involving at least the fourth digit, and he will likely require a prolonged course of antibiotics for residual osteomyelitis. This infection is likely polymicrobial, and his antibiotics should be broadened to cover gram negatives while maintaining coverage for Staph, strep and anaerobes. He does report a history of trauma to his right lower extremity, requiring surgery with hardware, and this will need to be considered if there is any evidence for extension of his infection towards the ankle. Suggestion: 1. Follow-up OR cultures 2. Discontinue Clindamycin 3. Begin Unasyn 3 g IV every 6 hours pending above Consult Acknowledgment - Thank you for your consult request.
--- NOTE | 2017-02-24 22:18 | Admission Certification ---
Admission Certification Certification Statement - As attending physician, I certify that at the time of - admission, based on clinical presentation, severity of - symptoms, need for further diagnostic testing and - therapeutic interventions, and risk of adverse outcomes - without in-hospital treatment, in my clinical assessment, - this patient requires an acute hospital stay for a minimum - of two nights or longer. I have also considered psychsocial - factors such as support system, advanced age, financial - issues, cognitive issues, and failed out-patient treatments, - past re-admission history, safety of patient, and lack of - compliance as applicable. Specific rationale supporting this admission is: diabetic foot infection
[2017-02-25 06:30] VITALS: BP 126/64
--- NOTE | 2017-02-25 08:44 | PN- Housestaff ---
UMESH PENALOZA,VISHNU 02/25/17 0843: Subjective Follow-up For: osteomyelitis of right 3rd, 4th, 5th Toes s/p ray resections Subjective: I saw and examined the patient today monrning He is still sleeping in the bed, denies any pain. No overnight events. Review of Systems Constitutional: Reports: see HPI. Comments: ROS negative except the above. Objective Last 24 Hrs of Vital Signs/I&O Vital Signs Date Time Temp Pulse Resp B/P B/P Pulse O2 O2 Flow FiO2 Mean Ox Delivery Rate 02/25 0630 99.7 81 20 126/64 96 Room Air 02/24 2228 99.5 87 20 120/64 97 Room Air 02/24 1406 99.1 96 20 140/70 98 Room Air 02/24 1134 97.8 89 20 128/60 98 Room Air 02/24 1108 82 130/62 Intake & Output 02/25 1600 02/25 0800 02/25 0000 Intake Total 400 200 Output Total Balance 400 200 Intake, IV 200 200 Intake, Oral 200 Physical Exam General Appearance: Alert, Oriented X3, Cooperative Skin: No Rashes HEENT: Atraumatic, PERRLA, EOMI Neck: Supple Cardiovascular: Normal S1, Normal S2 Lungs: Clear to Auscultation, Normal Air Movement Abdomen: Normal Bowel Sounds, Soft, No Tenderness Neurological: Normal Tone, Sensation Intact, Cranial Nerves 3-12 NL Extremities: No Clubbing, No Cyanosis, No Edema, dressing present in the right leg Current Medications: Current Medications Sig/Archana Start time Last Medication Dose Route Stop Time Status Admin Acetaminophen 1,000 MG Q6P PRN 02/24 0107 AC 02/24 PO 1406 Alprazolam 1 MG 2200 02/24 2200 AC 02/24 PO 03/03 2159 211 Ampicillin Sodium/ 3,000 MG Q6 02/24 1800 AC 02/25 Sulbactam Sodium IV 0632 Sodium Chloride 100 ML Bupropion HCl 300 MG DAILY 02/24 1000 AC 02/24 PO 1108 Clindamycin 900 MG IQ8 02/24 0800 DC 02/24 Dextrose/Water 50 ML IV 1107 Heparin Sodium 5,000 UNIT Q8 02/24 0600 AC 02/25 (Porcine) SC 0633 Insulin Aspart 0 TIDAC/HS 02/24 1700 AC 02/24 SC 2116 Insulin Aspart 0 TIDAC 02/24 1200 DC 02/24 SC 1220 Insulin Aspart 0 TIDAC 02/24 0800 DC SC Insulin Detemir 10 UNITS BID 02/24 1100 AC 02/24 SC 2116 Insulin Human NPH 20 UNITS AT BEDTIME 02/24 2200 CAN SC Lipase/Protease/ 4 CAP AC 02/24 1200 AC 02/25 Amylase PO 0633 Lisinopril 10 MG DAILY 02/24 1000 AC 02/24 PO 1108 Methylphenidate HCl 5 MG 0800,1200,1600 02/24 1630 AC 02/24 PO 1628 Patient Medication 1 ED .STK-MED ONE 02/24 1405 CO Teaching ED 02/24 1406 Last 24 Hrs of Lab/Steven Results Last 24 Hrs of Labs/Mics: Laboratory Tests 02/25/17 0720: Anion Gap 10, Estimated GFR > 60, BUN/Creatinine Ratio 28.9 H, CBC w Diff MAN DIFF ORDERED, RBC 2.95 L, MCV 91.4, MCH 31.2 H, RDW 13.6, MPV 7.4, Gran % 90.4 H, Lymphocytes % 3.6 L, Monocytes % 5.5, Eosinophils % 0.5, Basophils % 0 L, Absolute Granulocytes 31.1 H, Segmented Neutrophils 81 H, Band Neutrophils 8 H, Absolute Lymphocytes 1.2, Lymphocytes 4 L, Monocytes 6, Absolute Monocytes 1.9 H, Absolute Eosinophils 0.2, Absolute Basophils 0, Metamyelocytes 1, Platelet Estimate VERIFIED BY SMEAR, Normocytic RBCs VERIFIED, Normochromic RBCs VERIFIED, PUBS MCHC 34.1 Assessment/Plan Assessment: 56-year-old male with past medical history of insulin-dependent diabetes mellitus, came into the emergency department with complaints of fall smelling wound on his right foot. He is currently being managed in the general medical floor for the following issues: #Osteomyelitis of third, fourth, and fifth toes right side, status post partial third fourth and fifth ray resections Patient underwent incision and drainage in the emergency department initially and was found to have a deep-seated abscess with tendons exposed. Podiatry service was consulted and he underwent surgery on 02/23/2017 for the condition. The surgery was carried out without any complications. -Continue IV ampicillin 3000mg IV Q6. -Continue leg elevation -Continue pain management which seems to be adequate right now - Patient will go for repeat debridement on monday. Uncontrolled diabetes mellitus Patient has been placed on diabetic diet, 10 units of insulin Levemir twice a day as well as sliding scale NovoLog insulin with bedtime scale. -Continue pancreatic enzyme supplementation - Increased levemir dose to 12 units BID as sugars are in 300's. #Diabetic diet #DVT prophylaxis with SQ Heparin #CODE STATUS full code Problem List: 1. Gangrene of right foot 2. Cellulitis of foot, right Pain Ratin Pain Location: right foot Pain Goal: Pain 4 or less Pain Plan: Tylenol Tomorrow's Labs & Rationales: cbc to monitor white count bep to monitor electrolytes YAS PENALOZA,[facility] 02/25/17 1145: Attending MD Review Statement Attending Statement Attending MD Statement: examined this patient, discuss w/resident/PA/SET UP MECH[employer]IC COATING MACHINES, agreed w/resident/PA/SET UP ME[employer]ATING MACHINES, discussed with family, reviewed EMR data (avail), discussed with nursing, discussed with case mgmt, reviewed images, amended to note Attending Assessment/Plan: Patient is resting comfortably in bed. Does not offer any complaints. White count trending down. Afebrile. His blood sugars are running in high 200's Recommendations 1. Continue IV Unasyn 3 g every 6 hours. Follow up culture report 2. Increase Levemir to 12 units twice a day. Please inquire about the weightbearing status for the patient with Dr. Luong.
[2017-02-25 08:47] LABS: ABSOLUTE BASOPHIL COUNT 0 /CUMM (0.0-0.2); ABSOLUTE EOSINOPHIL COUNT 0.2 /CUMM (0.0-0.7); ABSOLUTE GRANULOCYTE CT 31.1 /CUMM (1.4-6.5); ABSOLUTE LYMPH COUNT 1.2 /CUMM (1.2-3.4); ABSOLUTE MONOCYTE COUNT 1.9 /CUMM (0.10-0.60); BASOPHIL % 0 % (0.0-2.0); EOSINOPHIL % 0.5 % (0-5); GRANULOCYTE % 90.4 % (42.2-75.2); HEMATOCRIT 26.9 % (42-52); MEAN CORPUSCULAR HGB 31.2 PG (27.0-31.0); MEAN CORPUSCULAR HGB CONC 34.1 G/DL (33.0-37.0); MEAN CORPUSCULAR VOLUME 91.4 FL (80.0-94.0); MEAN PLATELET VOLUME 7.4 FL (7.4-10.4); PLATELET COUNT 338 /CUMM (130-400); RBC DISTRIBUTION WIDTH 13.6 % (11.5-14.5); RED BLOOD CELL CT 2.95 /CUMM (4.70-6.10)
[2017-02-25 09:02] LABS: WHITE BLOOD CELL COUNT 34.4 /CUMM (4.8-10.8)
--- NOTE | 2017-02-25 14:25 | PN- Infect Dx ---
Subjective Subjective: Afebrile. He offers no complaints Objective Last 24 Hrs of Vital Signs/I&O Vital Signs Date Time Temp Pulse Resp B/P B/P Pulse O2 O2 Flow FiO2 Mean Ox Delivery Rate 02/25 0919 81 126/64 02/25 0630 99.7 81 20 126/64 96 Room Air 02/24 2228 99.5 87 20 120/64 97 Room Air Intake & Output 02/25 1600 02/25 0800 02/25 0000 Intake Total 400 200 Output Total Balance 400 200 Intake, IV 200 200 Intake, Oral 200 Physical Exam Other Physical Findings: He appears comfortable in no acute distress Lungs are clear Heart regular rhythm with no murmur Extremities right foot dressing intact Results Last 24 Hours of Lab Results: Laboratory Tests 02/26 720 Chemistry Sodium (137 - 145 mmol/L) 133 L Potassium (3.5 - 5.1 mmol/L) 3.7 Chloride (98 - 107 mmol/L) 102 Carbon Dioxide (22 - 30 mmol/L) 21 L Anion Gap (5 - 16) 10 BUN (9 - 20 mg/dL) 26 H Creatinine (0.7 - 1.2 mg/dL) 0.9 Estimated GFR (>60 ml/min) > 60 BUN/Creatinine Ratio (7 - 25 %) 28.9 H Hematology CBC w Diff MAN DIFF ORDERED WBC (4.8 - 10.8 /CUMM) 34.4 *H RBC (4.70 - 6.10 /CUMM) 2.95 L Hgb (14.0 - 18.0 G/DL) 9.2 L Hct (42 - 52 %) 26.9 L MCV (80.0 - 94.0 FL) 91.4 MCH (27.0 - 31.0 PG) 31.2 H RDW (11.5 - 14.5 %) 13.6 Plt Count (130 - 400 /CUMM) 338 MPV (7.4 - 10.4 FL) 7.4 Gran % (42.2 - 75.2 %) 90.4 H Lymphocytes % (20.5 - 51.1 %) 3.6 L Monocytes % (1.7 - 9.3 %) 5.5 Eosinophils % (0 - 5 %) 0.5 Basophils % (0.0 - 2.0 %) 0 L Absolute Granulocytes (1.4 - 6.5 /CUMM) 31.1 H Segmented Neutrophils (42.2 - 75.2 %) 81 H Band Neutrophils (0.0 - 5.0 %) 8 H Absolute Lymphocytes (1.2 - 3.4 /CUMM) 1.2 Lymphocytes (20.5 - 51.1 %) 4 L Monocytes (1.7 - 9.3 %) 6 Absolute Monocytes (0.10 - 0.60 /CUMM) 1.9 H Absolute Eosinophils (0.0 - 0.7 /CUMM) 0.2 Absolute Basophils (0.0 - 0.2 /CUMM) 0 Metamyelocytes (0.0 - 1.0 %) 1 Platelet Estimate (ADEQUATE) VERIFIED BY SMEAR Normocytic RBCs VERIFIED Normochromic RBCs VERIFIED PUBS MCHC (33.0 - 37.0 G/DL) 34.1 Last 24 Hours of Steven Results: Blood cultures 2 February 23 negative OR cultures February 23 labeled right foot tissue and right foot bone positive for Enterococcus, Staph aureus and gram-negative rods Assessment/Plan Impression: Stable status post I&D of a right foot plantar space abscess and partial amputations of the third, fourth and fifth toes for gangrene and osteomyelitis of the right foot. His temperatures are now normal and white blood cell count is decreasing on Unasyn, with OR cultures positive for multiple organisms including Staph aureus, Enterococcus and gram-negative rods. He is apparently scheduled for further debridement on February 28. Suggestion: 1. Follow-up final OR cultures 2. Continue Unasyn pending above
[2017-02-25 19:22] VITALS: BP 124/60
[2017-02-25 22:52] VITALS: BP 124/80
[2017-02-26 06:30] VITALS: BP 134/68
--- NOTE | 2017-02-26 06:31 | PN- Housestaff ---
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 He reports that the pain is controlled and is looking forward for the repeated debridement on Monday so that he can go home. Denies any fevers or chills overnight. Review of Systems Constitutional: Denies: chills, fever. Cardiovascular: Denies: chest pain, palpitations. Respiratory: Denies: cough, short of breath. Gastrointestinal: Denies: abdominal pain, nausea, vomiting. Genitourinary: Denies: no symptoms. Musculoskeletal: Reports: see HPI. Skin: Denies: no symptoms. Objective Last 24 Hrs of Vital Signs/I&O Vital Signs Date Time Temp Pulse Resp B/P B/P Pulse O2 O2 Flow FiO2 Mean Ox Delivery Rate 02/26 0936 134/68 02/26 0630 99.5 83 20 134/68 98 Room Air 02/25 2252 99.4 91 20 124/80 98 Room Air 02/25 1922 99.6 90 20 124/60 98 Room Air Intake & Output 02/26 1600 02/26 0800 02/26 0000 Intake Total 420 Output Total 325 Balance -325 420 Intake, Oral 420 Number 0 Bowel Movements Output, Urine 325 Physical Exam General Appearance: Alert, Oriented X3, Cooperative, No Acute Distress Skin: No Breakdown Skin Temp/Moisture Exam: Warm/Dry Sepsis Skin Exam (color): Normal for Ethnicity HEENT: Atraumatic, Mucous Membr. moist/pink Neck: Supple, No JVD Cardiovascular: Regular Rate, Normal S1, Normal S2 Lungs: Clear to Auscultation, Normal Air Movement Abdomen: Normal Bowel Sounds, Soft, No Tenderness Neurological: Normal Speech, Normal Tone Extremities: No Clubbing, No Cyanosis, right foot is strapped post procedure Current Medications: Current Medications Sig/Archana Start time Last Medication Dose Route Stop Time Status Admin Acetaminophen 1,000 MG Q6P PRN 02/24 0107 AC 02/24 PO 1406 Alprazolam 1 MG 02/24 AC 02/25 PO 03/03 Ampicillin Sodium/ 3,000 MG Q6 02/24 1800 AC 02/26 Sulbactam Sodium IV 0616 Sodium Chloride 100 ML Bupropion HCl 300 MG DAILY 02/24 1000 AC 02/26 PO 0936 Heparin Sodium 5,000 UNIT Q8 02/24 0600 AC 02/26 (Porcine) SC 0617 Insulin Aspart 0 TIDAC/HS 02/24 1700 AC 02/25 SC 1649 Insulin Detemir 12 UNITS BID 02/25 2200 AC 02/26 SC 0936 Insulin Detemir 10 UNITS BID 02/24 1100 DC 02/25 SC 0920 Lipase/Protease/ 4 CAP AC 02/24 1200 AC 02/26 Amylase PO 0622 Lisinopril 10 MG DAILY 02/24 1000 AC 02/26 PO 0936 Methylphenidate HCl 5 MG 0800,1200,1600 02/24 1630 AC 02/26 PO 0936 Last 24 Hrs of Lab/Steven Results Last 24 Hrs of Labs/Mics: Laboratory Tests 02/26/17 0645: Anion Gap 11, Estimated GFR > 60, BUN/Creatinine Ratio 25.6 H, CBC w Diff MAN DIFF ORDERED, WBC Pending, RBC Pending, Hgb Pending, Hct Pending, MCV Pending, MCH Pending, RDW Pending, Plt Count Pending, MPV Pending, Gran % Pending, Lymphocytes % Pending, Monocytes % Pending, Eosinophils % Pending, Basophils % Pending, Absolute Granulocytes Pending, Segmented Neutrophils Pending, Absolute Lymphocytes Pending, Absolute Monocytes Pending, Absolute Eosinophils Pending, Absolute Basophils Pending, PUBS MCHC Pending Orders Fingersticks (last 24 hrs): 204, 204, 165, 165, 190, 190, 190, 130, 130, 130 Assessment/Plan Assessment: 56-year-old male with past medical history of insulin-dependent diabetes mellitus, came into the emergency department with complaints of fall smelling wound on his right foot. Patient was suspected to have gas formation and was sent to the OR by Dr. Luong where he had open incision and drainage of the deep fascias and partial amputation of the third fourth and fifth toes. Osteomyelitis of third, fourth, and fifth toes right side, status post partial third fourth and fifth ray resections Patient underwent incision and drainage in the emergency department initially and was found to have a deep-seated abscess with tendons exposed. Podiatry service was consulted and he underwent surgery on 02/23/2017 for the condition. The surgery was carried out without any complications. Biopsies taken during the procedure is growing gram-negative rods and Staphylococcus aureus from the tissue and the bones . Patient is on IV Unasyn 3000mg Q6, would continue with antibiotic well with follow-up for final sensitivity results. Continue leg elevation Continue pain management which seems to be adequate right now, highest pain score 2 mostly 0 Patient will go for repeat debridement on monday, PT has recommended STR, will prepare documentation. Uncontrolled diabetes mellitus Patient has been placed on diabetic diet, 10 units of insulin Levemir twice a day as well as sliding scale NovoLog insulin with bedtime scale. Finger stick is showing glucose more controlled boasted on the higher side in 200s, yesterday Levemir was increased to 12 units twice a day, will continue to monitor and if remains in 200s consider increasing Levemir by 2 more units tomorrow. Problem List: 1. Cellulitis of foot, right 2. Diabetes mellitus Pain Ratin Pain Location: Right foot Pain Goal: Remain pain free Pain Plan: Tylenol Tomorrow's Labs & Rationales: None DVT/Prophylaxis: pharmacological YAS PENALOZA,[facility] 02/26/17 1050: Attending MD Review Statement Attending Statement Attending MD Statement: examined this patient, discuss w/resident/PA/THERAPY TEACHER, agreed w/resident/PA/THERAPY TEACHER, discussed with family, reviewed EMR data (avail), discussed with nursing, discussed with case mgmt, reviewed images, amended to note Attending Assessment/Plan: Patient sitting comfortably in bed. Does not offer any complaints. Right foot dressing in place. Blood sugar within acceptable range. Continue IV Unasyn for now pending cultures.
--- NOTE | 2017-02-26 08:10 | Discharge Summary ---
Visit Information Visit Dates Admission Date: 02/24/17 Discharge Date: 03/03/17 Hospital Course Course Attending Physician: Ivette Cook MD Primary Care Physician: SHARIFA VILA MD Consulting Request: Consulting Specialty: Podiatry Consulting Physician: Dr. Jasmine Reason for Consult: foot ulcer Hospital Course: This is a 56-year-old male with past medical history of insulin-dependent diabetes mellitus, came into the emergency department with complaints of fowl smelling wound on his right foot. Patient was suspected to have gas formation and was sent to the OR by Dr. Jasmine where he had open incision and drainage of the deep fascias and partial amputation of the third fourth and fifth toes. Post procedure the patient was admitted to general medicine floor and we managed him for the following conditions Osteomyelitis of third, fourth, and fifth toes right side, status post partial third fourth and fifth ray resections Patient underwent incision and drainage in the emergency department initially and was found to have a deep-seated abscess with tendons exposed. Podiatry service was consulted and he underwent surgery on the day of admission. The surgery was carried out without any complications. Biopsies taken during the procedure grew Enterobacter cloacae, Proteus vulgaris, Enterococcus, Staph aureus, and mixed anaerobic bacteria, from the tissue and the bones. Initially the Patient was started on IV Unasyn 3000mg Q6, after sensitivities and given the multiorganism growth from the culture the patient antibiotics were broadened to meropenem 1 g every 8 hours. He underwent repeat debridement on 02/28/17, with open transmetatarsal amputation of right foot. As per podiatry recommendation he will require a walker. Wound VAC was placed on 03/03/2017. PICC line was placed on 03/01/17. Patient will need to continue with antibiotic for 4 weeks from last debridement that is until March 28. He will need weekly ESR follow-ups while he is an antibiotic. Wound vac care will be followed up by Dr. Matthews. He will need regular PICC line care. Uncontrolled diabetes mellitus Patient is supposed to be on insulin for blood sugar control. On arrival the blood work showed HbA1c of 9.2 which signifies in adequate control of the blood sugars. Patient was reeducated on the importance of taking his diabetic medication and side effect of having persistent high sugars. During the course of her stay the patient was put on consistent carbohydrate 3 diet and continued to have blood sugar within acceptable levels. He'll be discharged on 12 units of long-acting insulin twice a day. He will need close monitoring of blood sugar. Please follow-up the new scale for NovoLog sliding scale and dose insulin accordingly Hypertension The patient has history of hypertension and at home he takes lisinopril 10 mg daily. During the course of the admission we continued her medication at the same dose. Blood pressure remained within acceptable levels. Will be discharged home to continue with lisinopril at 10 mg daily. Attention deficit hyperactive disorder Patient has ADHD and is on dextroamphetamine salt. Respiratory provided a substitute retarding 5 mg times a day. He remained symptom free and on discharge will continue with his home medication Complications: None Allergies: Coded Allergies: No Known Allergies (02/23/17) Significant Procedures: 1 open incision and drainage deep to the deep fascia with exposure of the extensor and flexor tendon and tendon sheath multiple sites right foot 2 open partial third fourth and fifth ray resections right foot 3 intraoperative administration of ankle block anesthesia 4 excisional debridement Foot x-ray Soft tissue gas. Diffuse soft tissue swelling. Increased lucency of the fourth digit middle phalanx is partially evaluated. Osteomyelitis at this location is a consideration. No definite erosions seen. This could be further evaluated by MRI if clinically indicated open transmetatarsal amputation right foot on 02/29/16 Pertinent Lab Results: Laboratory Tests 03/02 03/02 03/01 0658 0658 1800 Hematology CBC w Diff MAN DIFF ORDERED WBC (4.8 - 10.8 /CUMM) 16.6 H RBC (4.70 - 6.10 /CUMM) 2.52 L Hgb (14.0 - 18.0 G/DL) 7.5 L Hct (42 - 52 %) 22.7 L MCV (80.0 - 94.0 FL) 90.2 MCH (27.0 - 31.0 PG) 29.7 RDW (11.5 - 14.5 %) 13.7 Plt Count (130 - 400 /CUMM) 631 H MPV (7.4 - 10.4 FL) 7.1 L Gran % (42.2 - 75.2 %) 81.7 H Lymphocytes % (20.5 - 51.1 %) 10.0 L Monocytes % (1.7 - 9.3 %) 6.3 Eosinophils % (0 - 5 %) 1.5 Basophils % (0.0 - 2.0 %) 0.5 Absolute Granulocytes (1.4 - 6.5 /CUMM) 13.5 H Absolute Lymphocytes (1.2 - 3.4 /CUMM) 1.7 Absolute Monocytes (0.10 - 0.60 /CUMM) 1.0 H Absolute Eosinophils (0.0 - 0.7 /CUMM) 0.2 Absolute Basophils (0.0 - 0.2 /CUMM) 0.1 Platelet Estimate (ADEQUATE) INCREASED Polychromasia 1+ Stomatocytes 1+ PUBS MCHC (33.0 - 37.0 G/DL) 33.0 ESR Westergren (0 - 10 MM) 90 H Cancelled 03/01 0645 Hematology CBC w Diff NO MAN DIFF REQ WBC (4.8 - 10.8 /CUMM) 20.1 H RBC (4.70 - 6.10 /CUMM) 2.28 L Hgb (14.0 - 18.0 G/DL) 6.9 *L Hct (42 - 52 %) 20.7 L MCV (80.0 - 94.0 FL) 90.6 MCH (27.0 - 31.0 PG) 30.3 RDW (11.5 - 14.5 %) 13.4 Plt Count (130 - 400 /CUMM) 577 H MPV (7.4 - 10.4 FL) 7.1 L Gran % (42.2 - 75.2 %) 79.5 H Lymphocytes % (20.5 - 51.1 %) 7.5 L Monocytes % (1.7 - 9.3 %) 8.4 Eosinophils % (0 - 5 %) 4.5 Basophils % (0.0 - 2.0 %) 0.1 Absolute Granulocytes (1.4 - 6.5 /CUMM) 16.0 H Absolute Lymphocytes (1.2 - 3.4 /CUMM) 1.5 Absolute Monocytes (0.10 - 0.60 /CUMM) 1.7 H Absolute Eosinophils (0.0 - 0.7 /CUMM) 0.9 Absolute Basophils (0.0 - 0.2 /CUMM) 0 PUBS MCHC (33.0 - 37.0 G/DL) 33.4 Laboratory Tests 02/27 0930 Hematology CBC w Diff MAN DIFF ORDERED WBC (4.8 - 10.8 /CUMM) 27.7 H RBC (4.70 - 6.10 /CUMM) 2.60 L Hgb (14.0 - 18.0 G/DL) 8.1 L Hct (42 - 52 %) 23.7 L MCV (80.0 - 94.0 FL) 91.0 MCH (27.0 - 31.0 PG) 31.0 RDW (11.5 - 14.5 %) 14.1 Plt Count (130 - 400 /CUMM) 477 H MPV (7.4 - 10.4 FL) 7.1 L Gran % (42.2 - 75.2 %) 87.3 H Lymphocytes % (20.5 - 51.1 %) 4.6 L Monocytes % (1.7 - 9.3 %) 6.1 Eosinophils % (0 - 5 %) 1.9 Basophils % (0.0 - 2.0 %) 0.1 Absolute Granulocytes (1.4 - 6.5 /CUMM) 24.1 H Absolute Lymphocytes (1.2 - 3.4 /CUMM) 1.3 Absolute Monocytes (0.10 - 0.60 /CUMM) 1.7 H Absolute Eosinophils (0.0 - 0.7 /CUMM) 0.5 Absolute Basophils (0.0 - 0.2 /CUMM) 0 Platelet Estimate (ADEQUATE) VERIFIED BY SMEAR Stomatocytes 1+ PUBS MCHC (33.0 - 37.0 G/DL) 34.1 05/ 0645 Chemistry Sodium (137 - 145 mmol/L) 136 L Potassium (3.5 - 5.1 mmol/L) 3.7 Chloride (98 - 107 mmol/L) 101 Carbon Dioxide (22 - 30 mmol/L) 25 Anion Gap (5 - 16) 11 BUN (9 - 20 mg/dL) 23 H Creatinine (0.7 - 1.2 mg/dL) 0.9 Estimated GFR (>60 ml/min) > 60 BUN/Creatinine Ratio (7 - 25 %) 25.6 H Hematology CBC w Diff MAN DIFF ORDERED WBC (4.8 - 10.8 /CUMM) 30.1 *H RBC (4.70 - 6.10 /CUMM) 2.80 L Hgb (14.0 - 18.0 G/DL) 8.7 L Hct (42 - 52 %) 25.9 L MCV (80.0 - 94.0 FL) 92.4 MCH (27.0 - 31.0 PG) 31.1 H RDW (11.5 - 14.5 %) 13.9 Plt Count (130 - 400 /CUMM) 408 H MPV (7.4 - 10.4 FL) 7.3 L Gran % (42.2 - 75.2 %) 89.6 H Lymphocytes % (20.5 - 51.1 %) 4.8 L Monocytes % (1.7 - 9.3 %) 4.8 Eosinophils % (0 - 5 %) 0.8 Basophils % (0.0 - 2.0 %) 0 L Absolute Granulocytes (1.4 - 6.5 /CUMM) 26.9 H Segmented Neutrophils (42.2 - 75.2 %) 79 H Band Neutrophils (0.0 - 5.0 %) 6 H Absolute Lymphocytes (1.2 - 3.4 /CUMM) 1.5 Lymphocytes (20.5 - 51.1 %) 6 L Monocytes (1.7 - 9.3 %) 7 Absolute Monocytes (0.10 - 0.60 /CUMM) 1.4 H Eosinophils (0 - 5.0 %) 1 Absolute Eosinophils (0.0 - 0.7 /CUMM) 0.2 Absolute Basophils (0.0 - 0.2 /CUMM) 0 Metamyelocytes (0.0 - 1.0 %) 1 Platelet Estimate (ADEQUATE) VERIFIED BY SMEAR Normocytic RBCs VERIFIED Normochromic RBCs VERIFIED PUBS MCHC (33.0 - 37.0 G/DL) 33.6 Disposition Summary Disposition Principal Diagnosis: Osteomyelitis/gas gangrene of the right foot Uncontrolled diabetes mellitus Additional Diagnosis: Hypertension Discharge Disposition: SNF Discharge Instructions General Discharge Information Code Status: Full Code Patient's Diet: Consistent carbohydrate 3 diet Patient's Activity: As tolerated Follow-Up Instructions/Appts: You have a PICC (Peripherally Inserted Central Catheter), a type of intravenous (IV) line placed to receive antibiotics. Please get the antibiotics as instructed till MARCH 28, 2017. Please take care of the wound as instructed. Your wound needs dressing (WoundVac ) every Monday, Monday, and Monday. Please get weekly blood test (ESR) done and the results sent to Dr Pascual Beltran. Please follow up with Dr Annmarie Jasmine within 7 days of discharge. Please watch out for symptoms mentioned above, and return to emergency if symptoms worsen, or as needed. Please visit your PCP within ten days of discharge. Please check your blood sugar at home and follow diabetic diet. Please call us if you have any queries, or visit the emergency if needed. Medications at Discharge Discharge Medications: Stop taking the following medications: Insulin Lispro (Humalog Kwikpen U-100) 100 UNIT/ML INSULN.PEN Inject into fatty tissue 3 TIMES DAILY BEFORE MEALS Qty = 15 Insulin NPH Human Isophane (Humulin N Kwikpen) 100 UNIT/ML (3 ML) INSULN.PEN Inject into fatty tissue TAKE AT BEDTIME Qty = 15 Continue taking these medications: Lisinopril (Lisinopril) 10 MG TABLET 1 Tablet ORAL DAILY Qty = 30 Comments: Last Taken: 03/03/17 Time: 10 AM Alprazolam (Alprazolam) 1 MG TABLET 1 Tablet ORAL TAKE AT BEDTIME as needed for ANXIETY Qty = 30 Comments: Last Taken: 03/02/17 Time: 10 PM Lipase/Protease/Amylase ([place] 36,000 Units Capsule) 36K-114K CAPSULE. 3 Capsule ORAL 3 TIMES DAILY BEFORE MEALS Qty = 270 Comments: Last Taken: 03/03/17 Time: 12 PM Dextroamphetamine/Amphetamine (Dextroamp-Amphet ER 20 MG Cap) 20 MG CAP.ER.24H 1 Capsule ORAL Every Morning Qty = 30 Comments: NOT GIVEN IN HOSPITAL Dextroamphetamine/Amphetamine (Dextroamp-Amphetamine 5 MG Tab) 5 MG TABLET 1 Tablet ORAL DAILY 1400 Qty = 30 Comments: NOT GIVEN IN HOSPITAL Ergocalciferol (Vitamin D2) (Vitamin D2) 50,000 UNIT CAPSULE 1 Capsule ORAL Once a Week Qty = 4 Comments: NOT GIVEN IN HOSPITAL Bupropion HCl (Bupropion XL) 300 MG TAB.ER.24H 1 Tablet ORAL DAILY Qty = 30 Comments: Last Taken: 03/03/17 Time: 10AM Acetaminophen (Tylenol Extra Strength) 500 MG TABLET 2 Tablet ORAL as needed for PAIN Comments: NOT GIVEN IN HOSPITAL Start taking the following new medications: Insulin Detemir (Levemir) 100 UNIT/ML VIAL 12 Units Inject into fatty tissue TWICE DAILY Qty = 6 No Refills Comments: Last Taken: 03/03/17 Time: 10AM Insulin Aspart (Novolog) 100 UNIT/ML VIAL 0 Units Inject into fatty tissue BEFORE MEALS AND AT BEDTIME Qty = 8 No Refills Instructions: BEFORE MEALS Blood Insulin Sugar Units <80 0 81-150 0 151-200 2 201-250 4 251-300 6 301-350 8 351-400 10 >400 GIVE 12 UNITS AND Call Doctor AT BEDTIME Blood Insulin Sugar Units <80 0 81-100 0 101-200 0 201-250 0 251-300 1 301-350 2 351-400 3 >400 GIVE 4 UNITS AND Call Doctor Comments: Last Taken: 03/03/17 Time: 10AM Meropenem (Meropenem) 1 GRAM VIAL 1 Gram INTRAVEN IV EVERY 8 HOURS Days = 25 No Refills Comments: Last Taken: 03/03/17 Time: 3PM Lancets (Lancets) 1 EACH EACH 1 Unit Inject into fatty tissue TID/HS Qty = 90 No Refills Syringe & Needle,Insulin,1 Ml (Insulin Syringe) 29 GAUGE X 7/16" DISP.SYRIN 1 Unit Inject into fatty tissue TID/HS Qty = 1 No Refills Ferrous Sulfate (Slow Fe) 142 MG (45 MG IRON) TABLET.ER 1 Tablet ORAL DAILY Qty = 30 No Refills Comments: Last Taken: 03/03/17 Time: 10AM Copies To: ANNMARIE JASMINE DPM; SINGER PENALOZA,SHARIFA
[2017-02-26 08:33] LABS: ABSOLUTE BASOPHIL COUNT 0 /CUMM (0.0-0.2); ABSOLUTE EOSINOPHIL COUNT 0.2 /CUMM (0.0-0.7); ABSOLUTE GRANULOCYTE CT 26.9 /CUMM (1.4-6.5); ABSOLUTE LYMPH COUNT 1.5 /CUMM (1.2-3.4); ABSOLUTE MONOCYTE COUNT 1.4 /CUMM (0.10-0.60); BASOPHIL % 0 % (0.0-2.0); EOSINOPHIL % 0.8 % (0-5); GRANULOCYTE % 89.6 % (42.2-75.2); HEMATOCRIT 25.9 % (42-52); MEAN CORPUSCULAR HGB 31.1 PG (27.0-31.0); MEAN CORPUSCULAR HGB CONC 33.6 G/DL (33.0-37.0); MEAN CORPUSCULAR VOLUME 92.4 FL (80.0-94.0); MEAN PLATELET VOLUME 7.3 FL (7.4-10.4); PLATELET COUNT 408 /CUMM (130-400); RBC DISTRIBUTION WIDTH 13.9 % (11.5-14.5)
[2017-02-26 08:47] LABS: WHITE BLOOD CELL COUNT 30.1 /CUMM (4.8-10.8)
[2017-02-26 15:11] VITALS: BP 130/62
[2017-02-26 22:43] VITALS: BP 120/60
[2017-02-27 06:30] VITALS: BP 128/60
--- NOTE | 2017-02-27 07:03 | PN- Housestaff ---
CRISTIAN PENALOZA,LEONEL 02/27/17 0703: Subjective Follow-up For: Osteomyelitis of the foot is growing GNR, Enterococcus, and Staphylococcus aureus; Diabetes mellitus; Leukocytosis 30.1 yesterday. Complaints: no complaints Subjective: I followed up and examined the patient today. He is resting comfortably in bed, with his right foot at the end of the bed, not elevated. He does not offer any complaints. Vital signs stable, MAXIMUM TEMPERATURE of 99.7 at 1511 yesterday, no overnight events. Review of Systems Constitutional: Reports: no symptoms. Objective Last 24 Hrs of Vital Signs/I&O Vital Signs Date Time Temp Pulse Resp B/P B/P Pulse O2 O2 Flow FiO2 Mean Ox Delivery Rate 02/27 0630 98.8 87 20 128/60 98 Room Air 02/26 2243 99.0 90 20 120/60 96 02/26 1511 99.7 88 20 130/62 98 02/26 0936 134/68 Intake & Output 02/27 1600 02/27 0800 02/27 0000 Intake Total 240 240 Output Total 600 Balance -360 240 Intake, Oral 240 240 Output, Urine 600 Physical Exam General Appearance: Alert, Oriented X3, Cooperative, No Acute Distress Other Physical Findings: Skin: No Breakdown Skin Temp/Moisture Exam: Warm/Dry Sepsis Skin Exam (color): Normal for Ethnicity HEENT: Atraumatic, Mucous Membr. moist/pink Neck: Supple, No JVD Cardiovascular: Regular Rate, Normal S1, Normal S2 Lungs: Clear to Auscultation, Normal Air Movement Abdomen: Normal Bowel Sounds, Soft, No Tenderness Neurological: Normal Speech, Normal Tone Extremities: No Clubbing, No Cyanosis, right foot is strapped post procedure, right leg is swollen Current Medications: Current Medications Sig/Arhcana Start time Last Medication Dose Route Stop Time Status Admin Acetaminophen 1,000 MG Q6P PRN 02/24 0107 AC 02/24 PO 1406 Alprazolam 1 MG 02/24 AC 02/26 PO 03/03 2159 214 Ampicillin Sodium/ 3,000 MG Q6 02/24 1800 AC 02/27 Sulbactam Sodium IV 0613 Sodium Chloride 100 ML Bupropion HCl 300 MG DAILY 02/24 1000 AC 02/26 PO 0936 Heparin Sodium 5,000 UNIT Q8 02/24 0600 AC 05/22 (Porcine) SC 0612 Insulin Aspart 0 TIDAC/HS 02/24 1700 AC 02/27 SC 0825 Insulin Detemir 12 UNITS BID 02/25 2200 02/26 NV 2149 Lipase/Protease/ 4 CAP AC 02/24 1200 AC 02/27 Amylase PO 0612 Lisinopril 10 MG DAILY 02/24 1000 02/26 PO 0936 Methylphenidate HCl 5 MG 0800,1200,1600 02/24 1630 02/27 PO 0825 Assessment/Plan Assessment: 56-year-old male with past medical history of insulin-dependent diabetes mellitus, came into the emergency department with complaints of fall smelling wound on his right foot. Patient was suspected to have gas formation and was sent to the OR by Dr. Luong where he had open incision and drainage of the deep fascias and partial amputation of the third fourth and fifth toes. Osteomyelitis of third, fourth, and fifth toes right side, status post partial third fourth and fifth ray resections * Patient underwent incision and drainage in the emergency department initially and was found to have a deep-seated abscess with tendons exposed. Podiatry service was consulted and he underwent surgery on 02/23/2017 for the condition. The surgery was carried out without any complications. Biopsies taken during the procedure is Enterobacter cloacae, Proteus vulgaris, Enterococcus, Staph aureus, and mixed anaerobic bacteria, from the tissue and the bones. * Patient is on IV Unasyn 3000mg Q6, would continue with antibiotic well with follow-up for final sensitivity results. Continue leg elevation. * Continue pain management which seems to be adequate right now, highest pain score 2 mostly 0 * Patient will go for repeat debridement on monday, Insulin regular and IV fluids ordered accordingly from midnight. * PT has recommended STR. Uncontrolled diabetes mellitus * Patient has been placed on diabetic diet, 12 units of insulin Levemir twice a day as well as sliding scale NovoLog insulin with bedtime scale. * Finger stick is showing glucose more controlled now that it is in 223, 180, 180. #Diabetic diet #DVT prophylaxis with SQ Heparin #CODE STATUS full code Problem List: 1. Gangrene of right foot 2. Status post excisional debridement 3. Diabetes mellitus Pain Ratin Pain Location: right foot Pain Goal: Pain 4 or less Pain Plan: prn Tomorrow's Labs & Rationales: - D'MAEHARISH VANEGAS MD 02/27/17 1411: Attending MD Review Statement Attending Statement Attending MD Statement: examined this patient, discuss w/resident/PA/CUSTOMER SUCCESS ADVOCATE, agreed w/resident/PA/CUSTOMER SUCCESS ADVOCATE, reviewed EMR data (avail), discussed with case mgmt, reviewed images Attending Assessment/Plan: Patient with diabetes, here with questionable polymicrobial osteo-status post surgery and on Unasyn now. Awaiting final cultures. White count has come down from 45,000-27,000 and chronically anemic but stable.
[2017-02-27 10:02] LABS: ABSOLUTE BASOPHIL COUNT 0 /CUMM (0.0-0.2); ABSOLUTE EOSINOPHIL COUNT 0.5 /CUMM (0.0-0.7); ABSOLUTE GRANULOCYTE CT 24.1 /CUMM (1.4-6.5); ABSOLUTE LYMPH COUNT 1.3 /CUMM (1.2-3.4); ABSOLUTE MONOCYTE COUNT 1.7 /CUMM (0.10-0.60); BASOPHIL % 0.1 % (0.0-2.0); EOSINOPHIL % 1.9 % (0-5); GRANULOCYTE % 87.3 % (42.2-75.2); HEMATOCRIT 23.7 % (42-52); MEAN CORPUSCULAR HGB CONC 34.1 G/DL (33.0-37.0); MEAN PLATELET VOLUME 7.1 FL (7.4-10.4); PLATELET COUNT 477 /CUMM (130-400); RBC DISTRIBUTION WIDTH 14.1 % (11.5-14.5); WHITE BLOOD CELL COUNT 27.7 /CUMM (4.8-10.8)
[2017-02-27 14:36] VITALS: BP 118/70
--- NOTE | 2017-02-27 15:07 | PN- Infect Dx ---
Subjective Subjective: Afebrile without complaints Objective Last 24 Hrs of Vital Signs/I&O Vital Signs Date Time Temp Pulse Resp B/P B/P Pulse O2 O2 Flow FiO2 Mean Ox Delivery Rate 02/27 1436 98.3 63 20 118/70 94 Room Air 02/27 1048 108/60 02/27 0800 Room Air 02/27 0630 98.8 87 20 128/60 98 Room Air 02/26 2243 99.0 90 20 120/60 96 02/26 1511 99.7 88 20 130/62 98 Intake & Output 02/27 1600 02/27 0800 02/27 0000 Intake Total 240 240 Output Total 600 Balance -360 240 Intake, Oral 240 240 Output, Urine 600 Patient 194 lb Weight Physical Exam Other Physical Findings: He appears comfortable in no acute distress Extremities right foot dressing intact Results Last 24 Hours of Lab Results: Laboratory Tests 02/27 09 Hematology CBC w Diff MAN DIFF ORDERED WBC (4.8 - 10.8 /CUMM) 27.7 H RBC (4.70 - 6.10 /CUMM) 2.60 L Hgb (14.0 - 18.0 G/DL) 8.1 L Hct (42 - 52 %) 23.7 L MCV (80.0 - 94.0 FL) 91.0 MCH (27.0 - 31.0 PG) 31.0 RDW (11.5 - 14.5 %) 14.1 Plt Count (130 - 400 /CUMM) 477 H MPV (7.4 - 10.4 FL) 7.1 L Gran % (42.2 - 75.2 %) 87.3 H Lymphocytes % (20.5 - 51.1 %) 4.6 L Monocytes % (1.7 - 9.3 %) 6.1 Eosinophils % (0 - 5 %) 1.9 Basophils % (0.0 - 2.0 %) 0.1 Absolute Granulocytes (1.4 - 6.5 /CUMM) 24.1 H Absolute Lymphocytes (1.2 - 3.4 /CUMM) 1.3 Absolute Monocytes (0.10 - 0.60 /CUMM) 1.7 H Absolute Eosinophils (0.0 - 0.7 /CUMM) 0.5 Absolute Basophils (0.0 - 0.2 /CUMM) 0 Platelet Estimate (ADEQUATE) VERIFIED BY SMEAR Stomatocytes 1+ PUBS MCHC (33.0 - 37.0 G/DL) 34.1 Last 24 Hours of Steven Results: OR cultures February 23 labeled right foot tissue and bone positive for Enterobacter cloacae resistant to Ampicillin, Cefazolin, Unasyn and Cefoxitin, Proteus resistant to Ampicillin and Cefazolin, Enterococcus sensitive to Ampicillin, Staph aureus sensitive to Oxacillin and mixed anaerobic gram-negative rods Blood cultures 2 February 23 negative Assessment/Plan Impression: Stable status post I&D of a right foot plantar space abscess and partial amputations of the third, fourth and fifth toes for gangrene and osteomyelitis of the right foot 4 days ago. His temperatures remain normal and white blood cell count is decreasing on Unasyn, but, given his OR cultures, his antibiotics will need to be adjusted. He is apparently scheduled for further debridement in the a.m. He will need a prolonged course of IV antibiotics postop for residual osteomyelitis. Suggestion: 1. Await further debridement in the OR in the a.m. 2. Will need placement of a PICC 3. Discontinue Unasyn 4. Begin Meropenem 1 g IV every 8 hours
[2017-02-27 22:29] VITALS: BP 150/64
[2017-02-28 06:59] VITALS: BP 110/50
--- NOTE | 2017-02-28 07:13 | PN- Housestaff ---
CRISTIAN PENALOZA,LEONEL 02/28/17 0712: Subjective Follow-up For: Osteomyelitis of the Right foot, growing GNR, Enterococcus, and Staphylococcus aureus; Diabetes mellitus; Leukocytosis 27.7 yesterday. Complaints: no complaints Subjective: I followed up and examined the patient today. He is resting comfortably, does not have any complaints, is waiting for debridement procedure later today. After surgical procedure, patient is alert, awake, comfortable, does not offer any complaints. Review of Systems Constitutional: Reports: no symptoms. Objective Last 24 Hrs of Vital Signs/I&O Vital Signs Date Time Temp Pulse Resp B/P B/P Pulse O2 O2 Flow FiO2 Mean Ox Delivery Rate 02/28 1408 98.1 86 16 126/80 100 Room Air 02/28 1100 97.6 93 16 146/80 98 Room Air 02/28 0800 Room Air 02/28 0659 99.9 95 20 110/50 98 Room Air 02/27 2229 99.6 95 20 150/64 98 Room Air Intake & Output 02/28 1600 02/28 0800 02/28 0000 Intake Total 700 600 Output Total 200 400 Balance 500 200 Intake, IV 600 600 Intake, Oral 100 Number 0 Bowel Movements Output, Urine 200 400 Physical Exam General Appearance: Alert, Oriented X3, Cooperative, No Acute Distress Other Physical Findings: Skin: No Breakdown Skin Temp/Moisture Exam: Warm/Dry Sepsis Skin Exam (color): Normal for Ethnicity HEENT: Atraumatic, Mucous Membr. moist/pink Neck: Supple, No JVD Cardiovascular: Regular Rate, Normal S1, Normal S2 Lungs: Clear to Auscultation, Normal Air Movement Abdomen: Normal Bowel Sounds, Soft, No Tenderness Neurological: Normal Speech, Normal Tone Extremities: No Clubbing, No Cyanosis, right foot is strapped post procedure, right leg is swollen, better than yesterday Current Medications: Current Medications Sig/Archana Start time Last Medication Dose Route Stop Time Status Admin Acetaminophen 1,000 MG Q6P PRN 02/24 0107 AC 02/24 PO 1406 Alprazolam 1 MG 02/24 AC 02/27 PO 03/03 Bupropion HCl 300 MG DAILY 02/24 1000 AC 02/28 PO 0837 Dextrose/Sodium 1,000 ML Q13H 02/28 0000 DC 02/28 Chloride IV 02/28 1259 0014 Fentanyl Citrate 100 MCG .STK-MED ONE 02/28 0731 DC IM 02/28 0732 Heparin Sodium 5,000 UNIT Q8 02/24 0600 AC 02/28 (Porcine) SC 1431 Insulin Aspart 0 TIDAC/HS 02/28 1700 AC SC Insulin Aspart 0 TIDAC/HS 02/24 1700 DC 02/27 SC 02/28 0000 1707 Insulin Detemir 12 UNITS BID 02/25 2200 AC 02/28 SC 0838 Insulin Human Regular 1 UNITS .STK-MED ONE 02/28 0619 DC IV 02/28 0620 Insulin Human Regular 2 UNITS .STK-MED ONE 02/28 0005 DC IV 02/28 0006 Insulin Human Regular 0 Q6 02/27 2359 DC 02/28 SC 1107 Lipase/Protease/ 4 CAP AC 02/24 1200 AC 02/28 Amylase PO 1652 Lisinopril 10 MG DAILY 02/24 1000 AC 02/28 PO 0837 Meropenem 1 GM IQ8 02/27 1600 AC 02/28 IV 1653 Methylphenidate HCl 5 MG 0800,1200,1600 02/24 1630 AC 02/28 PO 1652 Midazolam HCl 2 MG .STK-MED ONE 02/28 0732 DC IM 02/28 0733 Last 24 Hrs of Lab/Steven Results Last 24 Hrs of Labs/Mics: Microbiology 02/28 1240 EXTREMITIE: Gross Specimen Examination - RECD 02/28 1240 EXTREMITIE: Gram Stain - RECD Assessment/Plan Assessment: 56-year-old male with past medical history of insulin-dependent diabetes mellitus, came into the emergency department with complaints of fall smelling wound on his right foot. Patient was suspected to have gas formation and was sent to the OR by Dr. Luong where he had open incision and drainage of the deep fascias and partial amputation of the third fourth and fifth toes. Osteomyelitis of third, fourth, and fifth toes right side, status post partial third fourth and fifth ray resections * Patient underwent incision and drainage in the emergency department initially and was found to have a deep-seated abscess with tendons exposed. Podiatry service was consulted and he underwent surgery on 02/23/2017 for the condition. The surgery was carried out without any complications. Biopsies taken during the procedure is Enterobacter cloacae, Proteus vulgaris, Enterococcus, Staph aureus, and mixed anaerobic bacteria, from the tissue and the bones. * Patient was on IV Unasyn 3000mg Q6, was changed to Meropenem yesterday per ID suggestion. Continue leg elevation. * Continue pain management which seems to be adequate right now, highest pain score 2 mostly 0 * Patient went for repeat debridement today, and is stable post-procedure. * Patient will require long-term IV antibiotics, and thus a consent for PICC line placement has been obtained and IV nurse informed. * PT has recommended STR. Uncontrolled diabetes mellitus * Patient has been placed on diabetic diet, 12 units of insulin Levemir twice a day as well as sliding scale NovoLog insulin with bedtime scale. * Finger stick is showing glucose more controlled now that it is in 100, 100, 131, 181. #Diabetic diet #DVT prophylaxis with SQ Heparin #CODE STATUS full code Problem List: 1. Gangrene of right foot 2. Status post excisional debridement 3. Diabetes mellitus Pain Ratin Pain Location: right foot Pain Goal: Pain 4 or less Pain Plan: prn Tomorrow's Labs & Rationales: RODERICK DELGADO MD,HARISH 02/28/17 1545: Attending MD Review Statement Attending Statement Attending MD Statement: examined this patient, discuss w/resident/PA/FAMILY LIFE COUNSELOR, agreed w/resident/PA/FAMILY LIFE COUNSELOR, reviewed EMR data (avail), discussed with nursing Attending Assessment/Plan: Patient is going back to the OR today for further debridement. Plan is PICC line with IV antibiotics for osteomyelitis. Will discuss with ID on duration and course given the polymicrobial nature off the osteomyelitis.
[2017-02-28 11:00] VITALS: BP 146/80
--- NOTE | 2017-02-28 13:23 | Operative Report ---
Operative/Inv Procedure Report Surgery Date: 02/28/17 Name of Procedure: 1 open transmetatarsal amputation right foot 2 intraoperative administration of negative pressure wound therapy 3 intraoperative administration of ankle block anesthesia Pre-Operative Diagnosis: 1 Gangrene right foot Post-Operative Diagnosis: The same Estimated Blood Loss: less than 50ml Surgeon/Bread Wrapping Machine Feeder: ANNMARIE JASMINE DPM Anesthesia: moderate sedation, block Operative/Procedure Note Note: After obtaining informed consent the patient was brought to the operating room and placed on the operating table in the supine position. The patient was then securely fastened to the operating table utilizing safety belt. After administration of IV sedation, 10 mL of 0.5% Marcaine plain was infiltrated about the patient's right ankle. The right foot and ankle within scrubbed prepped and draped in usual aseptic manner. The right foot were large full- thickness necrotic was identified. A guillotine-type incision was carried down to the periosteum of the first second third fourth and fifth metatarsal shafts. Sagittal bone saw was utilized performed through and through osteotomies to the first second third fourth and fifth metatarsal shafts. The distal osseous segment was freed and passed from the operative field specimen was sent for both microbiologic and pathologic inspection. Inferiorly the dissection was carried down deep to the deep fascia with exposure of the flexor tendon and tendon sheath multiple sites, both proximally and distally. All necrotic nonviable infected tissue sharply evacuated from the wound bed. The open wound was then irrigated with 3 L of normal sterile saline infused with 50,000 units of bacitracin. Following this, the foot was redraped and the surgeon's top gloves were changed clean gloves. Any bleeding vessels identified were cauterized or ligated as encountered. Next, negative pressure wound therapy was applied followed by Kerlix and an Jemal wrap. The patient was noted tolerate both procedure and anesthesia well and the patient was transported from the operating room to recovery with vital signs stable.
[2017-02-28 14:08] VITALS: BP 126/80
[2017-02-28 22:19] VITALS: BP 122/60
[2017-03-01 06:30] VITALS: BP 128/72
[2017-03-01 08:16] LABS: ABSOLUTE BASOPHIL COUNT 0 /CUMM (0.0-0.2); ABSOLUTE EOSINOPHIL COUNT 0.9 /CUMM (0.0-0.7); ABSOLUTE LYMPH COUNT 1.5 /CUMM (1.2-3.4); ABSOLUTE MONOCYTE COUNT 1.7 /CUMM (0.10-0.60); BASOPHIL % 0.1 % (0.0-2.0); EOSINOPHIL % 4.5 % (0-5); GRANULOCYTE % 79.5 % (42.2-75.2); HEMATOCRIT 20.7 % (42-52); MEAN CORPUSCULAR HGB 30.3 PG (27.0-31.0); MEAN CORPUSCULAR HGB CONC 33.4 G/DL (33.0-37.0); MEAN CORPUSCULAR VOLUME 90.6 FL (80.0-94.0); MEAN PLATELET VOLUME 7.1 FL (7.4-10.4); PLATELET COUNT 577 /CUMM (130-400); RBC DISTRIBUTION WIDTH 13.4 % (11.5-14.5); RED BLOOD CELL CT 2.28 /CUMM (4.70-6.10); WHITE BLOOD CELL COUNT 20.1 /CUMM (4.8-10.8)
--- NOTE | 2017-03-01 11:18 | PN- Housestaff ---
Subjective Follow-up For: Osteomyelitis of the Right foot, growing MULTIPLE LIEN, s/p Right foot transmetatarsal amputation; Uncontrolled Diabetes mellitus. Complaints: no complaints Subjective: I followed up and examined the patient today. He is resting comfortably in bed, does not offer any complaints, awaiting PICC line insertion today. His vitals have been stable, no overnight issues. Of note, I was informed that his hemoglobin has dropped postoperatively significantly from 8.1-6.9 this morning. He is asymptomatic in regards to anemia. Review of Systems Constitutional: Reports: no symptoms. Objective Last 24 Hrs of Vital Signs/I&O Vital Signs Date Time Temp Pulse Resp B/P B/P Pulse O2 O2 Flow FiO2 Mean Ox Delivery Rate 03/01 0843 87 128/78 03/01 0630 99.5 87 20 128/72 98 Room Air 02/28 2219 98.2 92 20 122/60 97 02/28 1408 98.1 86 16 126/80 100 Room Air Intake & Output 03/01 1600 03/01 0800 03/01 0000 Intake Total 250 550 Output Total 300 1100 Balance -50 -550 Intake, IV 10 10 Intake, Oral 240 540 Output, 50 Drainage Output, Urine 300 1050 Physical Exam General Appearance: Alert, Oriented X3, Cooperative, No Acute Distress Other Physical Findings: Skin: No Breakdown Skin Temp/Moisture Exam: Warm/Dry Sepsis Skin Exam (color): Normal for Ethnicity HEENT: Atraumatic, Mucous Membr. moist/pink Neck: Supple, No JVD Cardiovascular: Regular Rate, Normal S1, Normal S2 Lungs: Clear to Auscultation, Normal Air Movement Abdomen: Normal Bowel Sounds, Soft, No Tenderness Neurological: Normal Speech, Normal Tone Extremities: No Clubbing, No Cyanosis, right foot is strapped post procedure Current Medications: Current Medications Sig/Archana Start time Last Medication Dose Route Stop Time Status Admin Acetaminophen 1,000 MG .STK-MED ONE 02/28 2009 DC PO 02/28 2010 Acetaminophen 1,000 MG Q6P PRN 02/24 0107 AC 03/01 PO 0609 Alprazolam 1 MG 0 02/24 2200 AC 02/28 PO 03/03 2159 2158 Bupropion HCl 300 MG DAILY 02/24 1000 AC 03/01 PO 0843 Heparin Sodium 5,000 UNIT Q8 02/24 0600 AC 03/01 (Porcine) SC 0557 Insulin Aspart 0 TIDAC/HS 02/28 1700 AC 02/28 NV 2158 Insulin Detemir 12 UNITS BID 02/25 2200 AC 03/01 SC 0846 Insulin Human Regular 0 Q6 02/27 2359 DC 02/28 NV 1107 Lipase/Protease/ 4 CAP AC 02/24 1200 AC 03/01 Amylase PO 0605 Lisinopril 10 MG DAILY 02/24 1000 AC 03/01 PO 0843 Meropenem 1 GM IQ8 02/27 1600 AC 03/01 IV 0843 Methylphenidate HCl 5 MG 0800,1200,1600 02/24 1630 AC 03/01 PO 0846 Last 24 Hrs of Lab/Steven Results Last 24 Hrs of Labs/Mics: Laboratory Tests 03/01/17 0645: CBC w Diff NO MAN DIFF REQ, RBC 2.28 L, MCV 90.6, MCH 30.3, RDW 13.4, MPV 7.1 L, Gran % 79.5 H, Lymphocytes % 7.5 L, Monocytes % 8.4, Eosinophils % 4.5, Basophils % 0.1, Absolute Granulocytes 16.0 H, Absolute Lymphocytes 1.5, Absolute Monocytes 1.7 H, Absolute Eosinophils 0.9, Absolute Basophils 0, PUBS MCHC 33.4 Microbiology 02/28 1240 EXTREMITIE: Gross Specimen Examination - RES GRAM NEGATIVE RODS ENTEROCOCCUS ALPHA STREP 02/29 1240 EXTREMITIE: Gram Stain - RES Assessment/Plan Assessment: 56-year-old male with past medical history of insulin-dependent diabetes mellitus, came into the emergency department with complaints of foul smelling wound on his right foot. Patient was suspected to have gas formation and was sent to the OR by Dr. Luong where he had open incision and drainage of the deep fascias and partial amputation of the third fourth and fifth toes. Osteomyelitis of Right foot, status post transmetatarsal amputation of Right foot * Patient underwent incision and drainage in the emergency department initially and was found to have a deep-seated abscess with tendons exposed. Podiatry service was consulted and he underwent surgery on 02/23/2017 for the condition. The surgery was carried out without any complications. Biopsies taken during the procedure is Enterobacter cloacae, Proteus vulgaris, Enterococcus, Staph aureus, and mixed anaerobic bacteria, from the tissue and the bones. * Patient was on IV Unasyn 3000mg Q6, was changed to Meropenem per ID suggestion. Continue leg elevation. * Continue pain management which seems to be adequate right now, highest pain score 2, mostly 0. * Patient went for repeat procedure yesterday 02/28/17, has a Right sided transmetatarsal amputation of the foot, but his H&H dropped from 8.1/23.7 to 619 /20.7. One unit of PRBC as been ordered and the patient is receiving it currently. * Patient will require long-term IV antibiotics, thus a PICC line was placed today. ESR has been ordered to follow his progress as he gets IV antibiotics on a long-term basis. * PT has recommended STR. Diabetes mellitus * Patient has been placed on diabetic diet, 12 units of insulin Levemir twice a day as well as sliding scale NovoLog insulin with bedtime scale. * Finger stick is showing glucose more controlled now. #Diabetic diet #DVT prophylaxis with SQ Heparin #CODE STATUS full code Problem List: 1. Gangrene of right foot 2. Status post transmetatarsal amputation of right foot 3. Diabetes mellitus Pain Ratin Pain Location: right foot Pain Goal: Pain 4 or less Pain Plan: prn Tomorrow's Labs & Rationales: CBC, to f/u for h/h ESR ordered to follow for IV abx Consulting Request: Consulting Specialty: Podiatry Consulting Physician: Dr. Luong Reason for Consult: foot ulcer
--- NOTE | 2017-03-01 11:55 | PN- Att Addend ---
Attending MD Review Statement Attending Statement Attending MD Statement: examined this patient, discuss w/resident/PA/CALL BOX WIRER, agreed w/resident/PA/CALL BOX WIRER, reviewed EMR data (avail), discussed w/nursing Attending Assessment/Plan: Laboratory Tests 03/01/17 0645: CBC w Diff NO MAN DIFF REQ, RBC 2.28 L, MCV 90.6, MCH 30.3, RDW 13.4, MPV 7.1 L, Gran % 79.5 H, Lymphocytes % 7.5 L, Monocytes % 8.4, Eosinophils % 4.5, Basophils % 0.1, Absolute Granulocytes 16.0 H, Absolute Lymphocytes 1.5, Absolute Monocytes 1.7 H, Absolute Eosinophils 0.9, Absolute Basophils 0, PUBS MCHC 33.4 Vital Signs Date Time Temp Pulse Resp B/P B/P Pulse O2 O2 Flow FiO2 Mean Ox Delivery Rate 03/01 0843 87 128/78 03/01 0630 99.5 87 20 128/72 98 Room Air 02/28 2219 98.2 92 20 122/60 97 02/28 1408 98.1 86 16 126/80 100 Room Air Patient seen and examined at bedside. Discussed with patient the care plan. Patient currently is getting PICC line placed. His hemoglobin today was down to 6.9 from 8.1 so we are not transfuse him 1 unit packed RBC today. Patient currently admitted with osteomyelitis status post surgical debridement as well as open transmetatarsal amputation right foot. Currently on IV meropenem will continue with that. Infectious disease following the patient along with medical team. We will follow up with the recommendations.
--- NOTE | 2017-03-01 12:54 | RADIOLOGY REPORT ---
EXAMINATION: XR PORTABLE CHEST CLINICAL INFORMATION: Status post PICC line placement. COMPARISON: Portable chest x-ray 02/23/2017. TECHNIQUE: Portable frontal view of the chest was obtained. FINDINGS: A right-sided peripherally inserted central venous catheter is identified with its tip at the SVC right atrial junction. The cardiomediastinal silhouette is otherwise unremarkable. The lungs and pleural spaces appear clear without evidence of congestion, consolidation, or significant appearing effusion or atelectasis. There is no evidence of pneumothorax or pulmonary edema. Included osseous structures appear largely unremarkable. IMPRESSION: Right-sided PICC line appears in satisfactory position without evidence of complication.
[2017-03-01 14:25] VITALS: BP 114/52
--- NOTE | 2017-03-01 14:42 | PN- Infect Dx ---
Subjective Subjective: Afebrile without complaints. Objective Last 24 Hrs of Vital Signs/I&O Vital Signs Date Time Temp Pulse Resp B/P B/P Pulse O2 O2 Flow FiO2 Mean Ox Delivery Rate 03/01 1425 98.8 83 20 114/52 98 03/01 0843 87 128/78 03/01 0630 99.5 87 20 128/72 98 Room Air 02/28 2219 98.2 92 20 122/60 97 Intake & Output 03/01 1600 03/01 0800 03/01 0000 Intake Total 250 550 Output Total 300 1100 Balance -50 -550 Intake, IV 10 10 Intake, Oral 240 540 Output, 50 Drainage Output, Urine 300 1050 Physical Exam Other Physical Findings: He appears comfortable in no acute distress Extremities right foot dressing intact; PICC in place in the right upper extremity Results Last 24 Hours of Lab Results: Laboratory Tests 03/01 0645 Hematology CBC w Diff NO MAN DIFF REQ WBC (4.8 - 10.8 /CUMM) 20.1 H RBC (4.70 - 6.10 /CUMM) 2.28 L Hgb (14.0 - 18.0 G/DL) 6.9 *L Hct (42 - 52 %) 20.7 L MCV (80.0 - 94.0 FL) 90.6 MCH (27.0 - 31.0 PG) 30.3 RDW (11.5 - 14.5 %) 13.4 Plt Count (130 - 400 /CUMM) 577 H MPV (7.4 - 10.4 FL) 7.1 L Gran % (42.2 - 75.2 %) 79.5 H Lymphocytes % (20.5 - 51.1 %) 7.5 L Monocytes % (1.7 - 9.3 %) 8.4 Eosinophils % (0 - 5 %) 4.5 Basophils % (0.0 - 2.0 %) 0.1 Absolute Granulocytes (1.4 - 6.5 /CUMM) 16.0 H Absolute Lymphocytes (1.2 - 3.4 /CUMM) 1.5 Absolute Monocytes (0.10 - 0.60 /CUMM) 1.7 H Absolute Eosinophils (0.0 - 0.7 /CUMM) 0.9 Absolute Basophils (0.0 - 0.2 /CUMM) 0 PUBS MCHC (33.0 - 37.0 G/DL) 33.4 Last 24 Hours of Steven Results: OR culture February 28 labeled bone and tissue positive for alpha strep, Enterococcus and gram-negative rods Recent Imaging Studies: Chest x-ray March 01 negative Assessment/Plan Impression: Stable status post completion of a transmetatarsal amputation of the right foot yesterday for 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 A distal osseous segment of the foot was sent for culture and pathology and can follow-up these results. He remains afebrile and white blood cell count is gradually decreasing now on Meropenem, which will need to be continued for 4 weeks from his most recent debridement. Suggestion: 1. Would obtain a postop baseline ESR and x-ray of the right foot 2. Follow-up culture and pathology from his recent surgery 3. Continue Meropenem
--- NOTE | 2017-03-01 21:31 | Patient Discharge Instructions ---
Discharge Instructions General Discharge Information You were seen/treated for: Sepsis and gas gangrene of Right foot; Plantar space abscess of Right foot; Osteomyelitis of Right foot You had these procedures: 1. Open incision and drainage deep to the deep fascia with exposure of the extensor and flexor tendon and tendon sheath multiple sites right foot; Open partial third fourth and fifth ray resections right foot on 02/23/2017 by Jameson Luong DPM. 2. Open transmetatarsal amputation right foot; intraoperative administration of negative pressure wound therapy on 02/28/2017 by Jameson Luong DPM. Watch for these problems: High grade fever, wound drainage/soakage, severe pain, Redness and swelling of Right foot. Special Instructions: You have a PICC (Peripherally Inserted Central Catheter), a type of intravenous (IV) line placed to receive antibiotics. Please get the antibiotics as instructed till MARCH 28, 2017. Please take care of the wound as instructed. Your wound needs dressing (WoundVac ) every Monday, Monday, and Monday. Please get weekly blood test (ESR) done and the results sent to Dr Pascual Beltran. Please follow up with Dr Jameson Luong within 7 days of discharge. Please watch out for symptoms mentioned above, and return to emergency if symptoms worsen, or as needed. Please visit your PCP within ten days of discharge. Please check your blood sugar at home and follow diabetic diet. Please call us if you have any queries, or visit the emergency if needed. Diet Continue normal diet: No Recommended Diet: Diabetic Activity Full Activity/No Limits: No Activity Self Limited: Yes (Non-weight bearing on Rt side) Acute Coronary Syndrome Inclusion Criteria At DC or during hospital stay patient has or had the following: ACS DIAGNOSIS No Discharge Core Measures Meds if any: Prescribed or Continued at Discharge Meds if any: NOT Prescribed or Continued at Discharge Congestive Heart Failure Inclusion Criteria At DC or during hospital stay patient has or had the following: CHF DIAGNOSIS No Discharge Core Measures Meds if any: Prescribed or Continued at Discharge Meds if any: NOT Prescribed or Continued at Discharge Cerebrovascular accident Inclusion Criteria At DC or during hospital stay patient has or had the following: CVA/TIA Diagnosis No Discharge Core Measures Meds if any: Prescribed or Continued at Discharge Meds if any: NOT Prescribed or Continued at Discharge Venous thromboembolism Inclusion Criteria VTE Diagnosis No VTE Type NONE VTE Confirmed by (Test) NONE Discharge Core Measures - Per Current guidelines, there needs to be overlap - treatment for the first 5 days of Warfarin therapy. - If discharged on Warfarin prior to 5 days of - overlap therapy, the patient will need to be - assessed for post discharge needs including - *Post discharge parental anticoagulation - *Warfarin and/or parental anticoagulation education - *Follow up date to check INR post discharge At least 5 days overlap therapy as Inpatient No Meds if any: Prescribed or Continued at Discharge Note: Overlap Therapy is Warfarin and Anticoagulant Meds if any: NOT Prescribed or Continued at Discharge
[2017-03-01 23:16] VITALS: BP 124/54
[2017-03-02 06:00] VITALS: BP 120/68
--- NOTE | 2017-03-02 06:32 | PN- Housestaff ---
CRISTIAN PENALOZA,LEONEL 03/02/17 0632: Subjective Follow-up For: Osteomyelitis of the Right foot, growing MULTIPLE LIEN, s/p Right foot transmetatarsal amputation; Uncontrolled Diabetes mellitus. Complaints: no complaints Subjective: I followed up and examined the patient today. He is resting comfortably in bed, offers no complaints, PICC line in place, vitals have been stable, no other issues. Review of Systems Constitutional: Reports: no symptoms. Objective Last 24 Hrs of Vital Signs/I&O Vital Signs Date Time Temp Pulse Resp B/P B/P Pulse O2 O2 Flow FiO2 Mean Ox Delivery Rate 03/02 1430 98.5 81 18 130/70 99 Room Air 03/02 0837 85 120/68 03/02 0600 98.5 85 20 120/68 99 Room Air 03/01 2316 99.7 89 20 124/54 97 Room Air 03/01 1602 Room Air Room Air Intake & Output 03/02 1600 03/02 0800 03/02 0000 Intake Total 480 Output Total 1200 1050 350 Balance -720 -1050 -350 Intake, Oral 480 Number 0 0 Bowel Movements Output, 50 Drainage Output, Urine 1200 1050 300 Physical Exam General Appearance: Alert, Oriented X3, Cooperative, No Acute Distress Other Physical Findings: Skin: No Breakdown Skin Temp/Moisture Exam: Warm/Dry Sepsis Skin Exam (color): Normal for Ethnicity HEENT: Atraumatic, Mucous Membr. moist/pink Neck: Supple, No JVD Cardiovascular: Regular Rate, Normal S1, Normal S2 Lungs: Clear to Auscultation, Normal Air Movement Abdomen: Normal Bowel Sounds, Soft, No Tenderness Neurological: Normal Speech, Normal Tone Extremities: No Clubbing, No Cyanosis, right foot is strapped post procedure; PICC line in situ Current Medications: Current Medications Sig/Archana Start time Last Medication Dose Route Stop Time Status Admin Acetaminophen 1,000 MG Q6P PRN 02/24 0107 AC 03/01 PO 0609 Alprazolam 1 MG 02/24 AC 03/01 PO 03/03 2159 2240 Bupropion HCl 300 MG DAILY 02/24 1000 AC 03/02 PO 0837 Heparin Sodium 5,000 UNIT Q8 02/24 0600 AC 03/02 (Porcine) SC 1432 Insulin Aspart 0 TIDAC/HS 02/28 1700 AC 03/01 SC 2241 Insulin Detemir 12 UNITS BID 02/25 2200 03/02 SC 0842 Lipase/Protease/ 4 CAP AC 02/24 1200 03/02 Amylase PO 1256 Lisinopril 10 MG DAILY 02/24 1000 AC 03/02 PO 0837 Meropenem 1 GM IQ8 02/27 1600 AC 03/02 IV 0837 Methylphenidate HCl 5 MG 0800,1200,1600 02/24 1630 AC 03/02 PO 1256 Last 24 Hrs of Lab/Steven Results Last 24 Hrs of Labs/Mics: Laboratory Tests 03/02/17 0658: ESR Westergren 90 H 03/02/17 0658: CBC w Diff MAN DIFF ORDERED, RBC 2.52 L, MCV 90.2, MCH 29.7, RDW 13.7, MPV 7.1 L, Gran % 81.7 H, Lymphocytes % 10.0 L, Monocytes % 6.3, Eosinophils % 1.5, Basophils % 0.5, Absolute Granulocytes 13.5 H, Absolute Lymphocytes 1.7, Absolute Monocytes 1.0 H, Absolute Eosinophils 0.2, Absolute Basophils 0.1, Platelet Estimate INCREASED, Polychromasia 1+, Stomatocytes 1+, PUBS MCHC 33.0 03/01/17 1800: ESR Westergren Cancelled Assessment/Plan Assessment: 56-year-old male with past medical history of insulin-dependent diabetes mellitus, came into the emergency department with complaints of foul smelling wound on his right foot. Patient was suspected to have gas formation and was sent to the OR by Dr. Luong where he had open incision and drainage of the deep fascias and partial amputation of the third fourth and fifth toes. Osteomyelitis of Right foot, status post transmetatarsal amputation of Right foot * Patient underwent incision and drainage in the emergency department initially and was found to have a deep-seated abscess with tendons exposed. Podiatry service was consulted and he underwent surgery on 02/23/2017 for the condition. The surgery was carried out without any complications. Biopsies taken during the procedure is Enterobacter cloacae, Proteus vulgaris, Enterococcus, Staph aureus, and mixed anaerobic bacteria, from the tissue and the bones. * Patient was on IV Unasyn 3000mg Q6, was changed to Meropenem per ID suggestion. Continue leg elevation. * Continue pain management which seems to be adequate right now, highest pain score 2, mostly 0. * Patient went for repeat procedure on 02/28/17, has a Right sided transmetatarsal amputation of the foot, H&H dropped from 8.1/23.7 to 619/20.7. One unit of PRBC given and the post transfusion Hb/hct is 7.5/22.7. * According to podiatry, patient will require a walker, and a wound VAC dressing every Monday, Monday, Monday in the short-term rehabilitation. Arrangements will be made accordingly. He is to get a wound VAC dressing tomorrow morning. * Patient will require long-term IV antibiotics, thus a PICC line was placed today. ESR has been ordered to follow his progress as he gets IV antibiotics on a long-term basis. * PT has recommended STR. Diabetes mellitus * Patient has been placed on diabetic diet, 12 units of insulin Levemir twice a day as well as sliding scale NovoLog insulin with bedtime scale. * Finger stick is showing glucose more controlled now. #Diabetic diet #DVT prophylaxis with SQ Heparin #CODE STATUS full code Problem List: 1. Gangrene of right foot 2. Status post transmetatarsal amputation of right foot Pain Ratin Pain Location: right foot stump Pain Goal: Pain 4 or less Pain Plan: prn Tomorrow's Labs & Rationales: - Consulting Request: Consulting Specialty: Podiatry Consulting Physician: Dr. Luong Reason for Consult: foot ulcer SANDY PENALOZA,HARISH 03/02/17 1334: Attending MD Review Statement Attending Statement Attending MD Statement: examined this patient, discuss w/resident/PA/PROGRAM COORDINATOR [employer], agreed w/resident/PA/PROGRAM COORDINATOR [employer], reviewed EMR data (avail), discussed with case mgmt Attending Assessment/Plan: Pt is overwhelmed at the thought of rehabilitation. He is very reluctant. I explained at length the IV meropenem, and the wound care. He has now given the manager of case management some choices but he is very concerned about his laptop which is at home which he needs for his work and the fact that his does not drive and cannot bring the laptop here. At this point he has osteomyelitis on IV meropenem. Noted ID's recommendations of checking a baseline sedimentation rate and x-ray postoperatively. He was last debrided on February 28 so he'll likely need 4 weeks of antibiotics from February 28 with ongoing follow-up.
[2017-03-02 08:07] LABS: ABSOLUTE BASOPHIL COUNT 0.1 /CUMM (0.0-0.2); ABSOLUTE EOSINOPHIL COUNT 0.2 /CUMM (0.0-0.7); ABSOLUTE GRANULOCYTE CT 13.5 /CUMM (1.4-6.5); ABSOLUTE LYMPH COUNT 1.7 /CUMM (1.2-3.4); BASOPHIL % 0.5 % (0.0-2.0); EOSINOPHIL % 1.5 % (0-5); GRANULOCYTE % 81.7 % (42.2-75.2); HEMATOCRIT 22.7 % (42-52); MEAN CORPUSCULAR HGB 29.7 PG (27.0-31.0); MEAN CORPUSCULAR VOLUME 90.2 FL (80.0-94.0); MEAN PLATELET VOLUME 7.1 FL (7.4-10.4); PLATELET COUNT 631 /CUMM (130-400); RBC DISTRIBUTION WIDTH 13.7 % (11.5-14.5); RED BLOOD CELL CT 2.52 /CUMM (4.70-6.10); WHITE BLOOD CELL COUNT 16.6 /CUMM (4.8-10.8)
[2017-03-02 14:30] VITALS: BP 130/70
[2017-03-02] MEDS ORDERED: LANCETS1 EACH SC (16:00)
[2017-03-02] MEDS ORDERED: INSULIN SYRING1 EA30 SC (16:02)
[2017-03-02] MEDS ORDERED: SLOW FE142 MG PO (16:03)
[2017-03-02 22:29] VITALS: BP 138/74
[2017-03-03 06:30] VITALS: BP 114/78
--- NOTE | 2017-03-03 08:31 | PN- Housestaff ---
CRISTIAN PENALOZA,LEONEL 03/03/17 0831: Subjective Follow-up For: Right foot osteomyelitis, status post right transmetatarsal amputation Subjective: Patient followed up by me today. He does not offer any complaints, vital signs stable, no overnight issues. Review of Systems Constitutional: Reports: no symptoms. Objective Last 24 Hrs of Vital Signs/I&O Vital Signs Date Time Temp Pulse Resp B/P B/P Pulse O2 O2 Flow FiO2 Mean Ox Delivery Rate 03/03 1410 99.0 91 20 130/70 03/03 1409 99.0 91 20 130/70 98 Room Air 03/03 0838 83 114/78 03/03 0630 99.0 83 18 114/78 97 Room Air 03/02 2229 99.3 84 18 138/74 98 Room Air Intake & Output 03/03 1600 03/03 0800 03/03 0000 Intake Total 600 200 480 Output Total 950 675 Balance -350 -475 480 Intake, Oral 600 200 480 Number 0 0 Bowel Movements Output, 175 Drainage Output, Urine 950 500 Physical Exam General Appearance: Alert, Oriented X3, Cooperative, No Acute Distress Other Physical Findings: Skin: No Breakdown Skin Temp/Moisture Exam: Warm/Dry Sepsis Skin Exam (color): Normal for Ethnicity HEENT: Atraumatic, Mucous Membr. moist/pink Neck: Supple, No JVD Cardiovascular: Regular Rate, Normal S1, Normal S2 Lungs: Clear to Auscultation, Normal Air Movement Abdomen: Normal Bowel Sounds, Soft, No Tenderness Neurological: Normal Speech, Normal Tone Extremities: No Clubbing, No Cyanosis, right foot is well dressed with WoundVac; PICC line in situ Current Medications: Current Medications Sig/Archana Start time Last Medication Dose Route Stop Time Status Admin Acetaminophen 1,000 MG Q6P PRN 02/24 0107 DCD 03/01 PO 0609 Alprazolam 1 MG 2200 02/240 DCD 03/02 PO 03/03 2159 2148 Bupropion HCl 300 MG DAILY 02/24 1000 DCD 03/03 PO 0838 Ferrous Sulfate 325 MG BID 03/02 1552 DCD 03/03 PO 0838 Heparin Sodium 5,000 UNIT Q8 02/24 0600 DCD 03/03 (Porcine) SC 1430 Insulin Aspart 0 TIDAC/HS 02/28 1700 DCD 03/03 SC 1238 Insulin Detemir 12 UNITS BID 02/25 2200 DCD 03/03 SC 0838 Lipase/Protease/ 4 CAP AC 02/24 1200 DCD 03/03 Amylase PO 1239 Lisinopril 10 MG DAILY 02/24 1000 DCD 03/03 PO 0838 Meropenem 1 GM IQ8 02/27 1600 DC 03/03 IV 1430 Methylphenidate HCl 5 MG 0800,1200,1600 02/24 1630 DC 03/03 PO 1239 Assessment/Plan Assessment: 56-year-old male with past medical history of insulin-dependent diabetes mellitus, came into the emergency department with complaints of foul smelling wound on his right foot. Patient was suspected to have gas formation and was sent to the OR by Dr. Luong where he had open incision and drainage of the deep fascias and partial amputation of the third fourth and fifth toes. Osteomyelitis of Right foot, status post transmetatarsal amputation of Right foot * Patient underwent incision and drainage in the emergency department initially and was found to have a deep-seated abscess with tendons exposed. Podiatry service was consulted and he underwent surgery on 02/23/2017 for the condition. The surgery was carried out without any complications. Biopsies taken during the procedure is Enterobacter cloacae, Proteus vulgaris, Enterococcus, Staph aureus, and mixed anaerobic bacteria, from the tissue and the bones. * Patient was on IV Unasyn 3000mg Q6, was changed to Meropenem per ID suggestion. Continue leg elevation. Patient has to get IV meropenem till March 28. * Continue pain management which seems to be adequate right now * Patient went for repeat procedure on 02/28/17, has a Right sided transmetatarsal amputation of the foot, H&H dropped from 8.1/23.7 to 619/20.7. One unit of PRBC given and the post transfusion Hb/hct is 7.5/22.7. * According to podiatry, patient will require a walker, and a wound VAC dressing every Monday, Monday, Monday in the short-term rehabilitation. Arrangements made accordingly. He got the WoundVac dressing this morning. * Patient will require long-term IV antibiotics, thus has a PICC line. ESR has been ordered to follow his progress as he gets IV antibiotics on a long-term basis. * PT has recommended STR. Diabetes mellitus * Patient has been placed on diabetic diet, 12 units of insulin Levemir twice a day as well as sliding scale NovoLog insulin with bedtime scale. * Finger stick is showing glucose more controlled now. #Diabetic diet #DVT prophylaxis with SQ Heparin #CODE STATUS full code Problem List: 1. Gangrene of right foot 2. Status post transmetatarsal amputation of right foot 3. Diabetes mellitus Pain Ratin Pain Location: rt foot Pain Goal: Pain 4 or less Pain Plan: prn Tomorrow's Labs & Rationales: - Consulting Request: Consulting Specialty: Podiatry Consulting Physician: Dr. Luong Reason for Consult: foot ulcer SANDY PENALOZA,HARISH 03/03/17 1142: Attending MD Review Statement Attending Statement Attending MD Statement: examined this patient, discuss w/resident/PA/DIRECTOR OF SPECIAL EVENTS, agreed w/resident/PA/DIRECTOR OF SPECIAL EVENTS, reviewed EMR data (avail), discussed with nursing, discussed with case mgmt Attending Assessment/Plan: Patient has accepted to bed at short-term rehabilitation. He is a 56-year-old with uncontrolled diabetes was here with polymicrobial osteo, status post surgical treatment and he is going on IV meropenem with a wound VAC. Because of all the issues with the wound VAC, IV antibiotics and ongoing dressing changes he is going to be in rehabilitation for some time. We will clarify with ID the total duration of antibiotics, get the sedimentation rate and x-ray as recommended and follow-up closely.
--- NOTE | 2017-03-03 11:30 | RADIOLOGY REPORT ---
EXAMINATION: XR FOOT, RIGHT CLINICAL INFORMATION: Status post transmetatarsal amputation. COMPARISON: 02/23/2017. TECHNIQUE: AP, lateral, and oblique views of the right foot. FINDINGS: Postoperative changes are identified consistent with transmetatarsal amputation through the proximal third of the metatarsals without evidence of retained foreign bodies or significant sized osseous fragments. Bone mineral density is otherwise maintained without cortical destruction to suggest osteomyelitis. There is a soft tissue defect with overlying bandage material and some type of drain anteriorly and inferiorly Please note there is a single small focus of soft tissue emphysema just below the neck of the talus dorsally measuring 5 mm. IMPRESSION: Postoperative changes as noted.
--- NOTE | 2017-03-03 12:29 | PN- Infect Dx ---
Subjective Subjective: Afebrile without complaints Objective Last 24 Hrs of Vital Signs/I&O Vital Signs Date Time Temp Pulse Resp B/P B/P Pulse O2 O2 Flow FiO2 Mean Ox Delivery Rate 03/03 0838 83 114/78 03/03 0630 99.0 83 18 114/78 97 Room Air 03/02 2229 99.3 84 18 138/74 98 Room Air 03/02 1430 98.5 81 18 130/70 99 Room Air Intake & Output 03/03 1600 03/03 0800 03/03 0000 Intake Total 200 480 Output Total 675 Balance -475 480 Intake, Oral 200 480 Number 0 Bowel Movements Output, 175 Drainage Output, Urine 500 Physical Exam Other Physical Findings: He appears comfortable in no acute distress Extremities right foot dressing intact, with wound VAC in place; PICC in the right upper extremity with no inflammation at the site Results Last 24 Hours of Lab Results: Laboratory Tests 03/02 03/02 03/01 0658 0658 1800 Hematology CBC w Diff MAN DIFF ORDERED WBC (4.8 - 10.8 /CUMM) 16.6 H RBC (4.70 - 6.10 /CUMM) 2.52 L Hgb (14.0 - 18.0 G/DL) 7.5 L Hct (42 - 52 %) 22.7 L MCV (80.0 - 94.0 FL) 90.2 MCH (27.0 - 31.0 PG) 29.7 RDW (11.5 - 14.5 %) 13.7 Plt Count (130 - 400 /CUMM) 631 H MPV (7.4 - 10.4 FL) 7.1 L Gran % (42.2 - 75.2 %) 81.7 H Lymphocytes % (20.5 - 51.1 %) 10.0 L Monocytes % (1.7 - 9.3 %) 6.3 Eosinophils % (0 - 5 %) 1.5 Basophils % (0.0 - 2.0 %) 0.5 Absolute Granulocytes (1.4 - 6.5 /CUMM) 13.5 H Absolute Lymphocytes (1.2 - 3.4 /CUMM) 1.7 Absolute Monocytes (0.10 - 0.60 /CUMM) 1.0 H Absolute Eosinophils (0.0 - 0.7 /CUMM) 0.2 Absolute Basophils (0.0 - 0.2 /CUMM) 0.1 Platelet Estimate (ADEQUATE) INCREASED Polychromasia 1+ Stomatocytes 1+ PUBS MCHC (33.0 - 37.0 G/DL) 33.0 ESR Westergren (0 - 10 MM) 90 H Cancelled Last 24 Hours of Steven Results: OR culture February 28 labeled right foot bone and tissue positive for alpha strep, Enterococcus, Enterobacter cloacae, Proteus and Staph aureus Assessment/Plan Impression: Stable status post completion of a transmetatarsal amputation of the right foot 3 days ago for 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 He remains afebrile and white blood cell count continues to decrease on Meropenem. A distal osseous segment of the foot was sent for culture, which is positive, and pathology, which is pending, but, in any event, he will require a four-week course of IV antibiotics for residual osteomyelitis. Suggestion: 1. Continue Meropenem for 4 weeks from his last debridement (until March 28) 2. Weekly ESR while on antibiotics
[2017-03-03 14:09] VITALS: BP 130/70
[2017-03-03 14:10] VITALS: BP 130/70
[2017-03-03] MEDS ORDERED: LEVEMIR100 UNIT/1 SC (14:52)
[2017-03-03] MEDS ORDERED: MEROPENEM1 G1 IV (14:53)
[2017-03-03] MEDS ORDERED: NOVOLOG100 UNIT/2 SC (14:53)
== END 2017-03-03 16:17 | DRG 239 ==
LOC: ERH 19:44 → ER-OR 21:06 → 2NA 02-24 00:05 → CRI 02-24 00:05 → 2NA 02-24 01:22 → ENPENDDIS 03-03 14:28 → 2NA 03-03 16:17
PROVIDERS: Internal Medicine; Physician Assistant; Radiology Diagnostic Radiology; Student in an Organized Health Care Education/Training Program; ADMIT Podiatrist Foot & Ankle Surgery
PROC: 0Y6M0ZF Detachment at Right Foot, Partial 5th Ray, Open Approach (ICD-10-PCS; principal; 2017-02-23)
PROC: 0Y6M0ZD Detachment at Right Foot, Partial 4th Ray, Open Approach (ICD-10-PCS; principal; 2017-02-23)
PROC: 0Y6M0ZD Detachment at Right Foot, Partial 4th Ray, Open Approach (ICD-10-PCS; 2017-02-28)
PROC: 0Y6M0ZC Detachment at Right Foot, Partial 3rd Ray, Open Approach (ICD-10-PCS; 2017-02-28)
PROC: 0Y6M0ZF Detachment at Right Foot, Partial 5th Ray, Open Approach (ICD-10-PCS; 2017-02-28)
PROC: 0Y6M0Z9 Detachment at Right Foot, Partial 1st Ray, Open Approach (ICD-10-PCS; 2017-02-28)
PROC: 0Y6M0ZB Detachment at Right Foot, Partial 2nd Ray, Open Approach (ICD-10-PCS; 2017-02-28)
DX: E11.52 Type 2 diabetes mellitus with diabetic peripheral angiopathy with gangrene (principal); A48.0 Gas gangrene; N17.9 Acute kidney failure, unspecified; E11.621 Type 2 diabetes mellitus with foot ulcer; K86.1 Other chronic pancreatitis; E87.1 Hypo-osmolality and hyponatremia; M86.9 Osteomyelitis, unspecified; L03.115 Cellulitis of right lower limb; L02.611 Cutaneous abscess of right foot; E11.69 Type 2 diabetes mellitus with other specified complication; E11.65 Type 2 diabetes mellitus with hyperglycemia; I10 Essential (primary) hypertension; F17.200 Nicotine dependence, unspecified, uncomplicated; Z79.4 Long term (current) use of insulin; R63.4 Abnormal weight loss; Z68.20 Body mass index [BMI] 20.0-20.9, adult; E11.628 Type 2 diabetes mellitus with other skin complications; F41.9 Anxiety disorder, unspecified; F32.9 Major depressive disorder, single episode, unspecified; F90.9 Attention-deficit hyperactivity disorder, unspecified type; I25.10 Atherosclerotic heart disease of native coronary artery without angina pectoris
CPT/HCPCS: 2NASP; 87070; 87075; 87184; 36415; 73630-RT; 82436; 86920; 87040; 87071; 87147; 88307; 93005; 93010; 97110-GO; 97116-GO; 97161-GP; 97530-GO; 99291; C1769; G0480; J1644; J1815; J2001; J2185; J2250; J3010; J7042; P9016

== ENCOUNTER 2018-03-09 20:07 | Inpatient (IN) | payer OTHER ==
[~2018-03-09] VITALS: Ht 208.3 cm; Wt 96.4 kg
[~2018-03-09 20:07] MED LIST: ALPRAZOLAM1 M2 PO; BUPROPION XL300 M1 PO; CREON DR 36,001 EAC1 PO; DEXTROAMP-AMPHE20 M1 PO; DEXTROAMP-AMPHET5 MG PO; HUMALOG KW100 UNIT/1 SC; HUMULIN N100 UNIT/2 SC; INSULIN SYRING1 EA30 SC; LANCETS1 EACH SC; LEVEMIR100 UNIT/1 SC; LISINOPRIL10 M1 PO; MEROPENEM1 G1 IV; NOVOLOG100 UNIT/2 SC; SLOW FE142 MG PO; TYLENOL EXTRA500 M2 PO; VITAMIN D250000 UNIT PO
--- NOTE | 2018-03-09 21:58 | ED UPPER/LOWER EXTREMITY COMPL ---
History of Present Illness General Chief Complaint: Lower Extremity Problems Stated Complaint: R FOOT POSSIBLE INFECTION Source: patient Exam Limitations: no limitations Vital Signs & Intake/Output Vital Signs & Intake/Output Vital Signs Date Time Temp Pulse Resp B/P B/P Pulse O2 O2 Flow FiO2 Mean Ox Delivery Rate 03/09 2013 96.5 96 20 98/59 97 Room Air Allergies Coded Allergies: No Known Allergies (02/23/17) Reconcile Medications Alprazolam 1 MG TABLET 1 TAB PO QHS PRN ANXIETY (Reported) Bupropion HCl (Bupropion XL) 300 MG TAB.ER.24H 1 TAB PO DAILY MENTAL HEALTH ( Reported) Dextroamphetamine/Amphetamine (Dextroamp-Amphetamine 5 MG Tab) 5 MG TABLET 1 TAB PO DAILY 1400 ANXIETY (Reported) Ergocalciferol (Vitamin D2) (Vitamin D2) 50,000 UNIT CAPSULE 1 CAP PO QW SUPPLEMENT (Reported) Ferrous Sulfate (Slow Fe) 142 MG (45 MG IRON) TABLET.ER 1 TAB PO DAILY SUPPLEMENT Insulin Aspart (Novolog) 100 UNIT/ML VIAL 0 UNITS SC TIDAC/HS DIABETES MELLITUS BEFORE MEALS Blood Insulin Sugar Units <80 0 81-150 0 151-200 2 201-250 4 251-300 6 301-350 8 351-400 10 >400 GIVE 12 UNITS AND Call Doctor AT BEDTIME Blood Insulin Sugar Units <80 0 81-100 0 101-200 0 201-250 0 251-300 1 301-350 2 351-400 3 >400 GIVE 4 UNITS AND Call Doctor Insulin Detemir (Levemir) 100 UNIT/ML VIAL 12 UNITS SC BID DIABETES MELLITUS Lancets 1 EACH EACH 1 UNIT SC TID/HS TO CHECK BLOOD SUGAR Lipase/Protease/Amylase (Aguila Bah 36,000 Units Capsule) 36K-114K CAPSULE. 3 CAP PO TIDAC PANCREATIC ENZYMES (Reported) Syringe & Needle,Insulin,1 Ml (Insulin Syringe) 29 GAUGE X 7/16" DISP.SYRIN 1 UNIT SC TID/HS TO GIVE INSULIN Triage Note: PT TO TRIAGE C/O R FOOT INFECTION. PT STATES WAS SEEN HERE EARLIER FOR SAME, TOLD HE HAD AN INFECTION BUT LEFT AMA. NOW STATES PAIN IS WORSE. PT STATES WAS NOT GIVEN ABX. FOOT UNVISUALIZED IN TRIAGE, DRESSING APPLIED, PER PT DRESSING WAS APPLIED HERE EARLIER. PT POOR HISTORIAN. Triage Nurses Notes Reviewed? yes Onset: Gradual Duration: day(s): Timing: recent history Severity: moderate Pain/Injury Location: Right: Foot. Method of Injury: discharge, erythema Modifying Factors: Improves With: rest. Associated Symptoms: swelling, redness HPI: 57-year-old gentleman history of diabetes, history of amputation of his right toes, presents with foul-smelling purulent discharge from an open wound of his right foot. He was seen here previously was counseled to be admitted to the hospital with an elevated white blood cell count and elevated inflammatory markers. He signed out AMA. He states, "the last several hours admitted it was for 45 days. I wanted to go home for an hour to get ready." He notes no fever chills cough sputum abdominal pain. He is otherwise well. Past History Travel History Traveled to [place] past 21 day No Medical History Any Pertinent Medical History? 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 No Review of Systems Review of Systems Constitutional: Denies: see HPI. Physical Exam Physical Exam General Appearance: well developed/nourished Comments: Review of Systems - except as otherwise noted in HPI Review of Systems Constitutional:no symptoms. EENTM:no symptoms. Respiratory:no symptoms. Cardiovascular:no symptoms. GI:no symptoms. Genitourinary:no symptoms. Musculoskeletal:no symptoms. Skin:no symptoms. Neurological/Psychological:no symptoms. Hematologic/Endocrine:no symptoms. Immunologic/Allergic:no symptoms. All Other Systems: Reviewed and Negative Physical Exam Physical Exam General Appearance: well developed/nourished, no apparent distress Head: atraumatic, normal appearance Eyes: Bilateral: normal appearance. Ears, Nose, Throat: normal pharynx, normal ENT inspection Neck: normal inspection, supple, full range of motion Respiratory: normal breath sounds, chest non-tender, no respiratory distress, quiet respiration, lungs clear Cardiovascular: regular rate/rhythm Gastrointestinal: normal bowel sounds, soft, non-tender, no organomegaly Back: normal inspection, normal range of motion Extremities: normal capillary refill, normal range of motion, no edema, right foot with mild purulence, open wound palpable nearly to bone, decreased sensation. Neurologic/Psych: no motor/sensory deficits, awake, alert, oriented x 3 Skin: intact, normal color, warm/dry Progress Differential Diagnosis: cellulitis vs osteo vs other. Plan of Care: Orders Procedure Date/time Status BLOOD CULTURE 03/09 2300 Active BLOOD CULTURE 03/09 2258 Active Current Medications Sig/Archana Start time Last Medication Dose Stop Time Status Admin Sodium Chloride 1,000 ML BOLUS ONE 03/09 2300 AC (Normal Saline 0.9%) 03/09 235 Microbiology 03/09 234 BLOOD: Blood Culture - RECD 03/09 2258 BLOOD: Blood Culture - ORD Diagnostic Imaging: Viewed by Me: Radiology Read, Ultrasound. Discussed w/RAD: Radiology Read, Ultrasound. Radiology Impression: PATIENT: ANGEL EDMONDS PRESENT AGE: 57 PATIENT ACCOUNT NO: [id number] : 58 LOCATION: [facility] ORDERING PHYSICIAN: Enoc LAL SERVICE DATE: 03/09/18 EXAM TYPE : US - US-UNILATERAL VENOUS DOPPLER EXAMINATION: US TRIPLEX LOWER EXTREMITY, RIGHT CLINICAL INFORMATION: Right leg swelling COMPARISON: None TECHNIQUE: Color -flow triplex imaging with spectral analysis and compression Doppler were performed on the lower extremity. FINDINGS: Respiratory variation, normal compression and augmented flow are noted throughout the lower extremity. The visualized common femoral vein, superficial femoral vein, profunda femoral vein, popliteal vein and midcalf peroneal and posterior tibial venous segments show no evidence of deep venous thrombosis. Calf veins are difficult to visualize due to swelling. There are prominent right inguinal lymph nodes, largest measuring 3.5 x 1 x 4.4 cm in dimension. There is no Doe's cyst. IMPRESSION: No evidence of deep venous thrombosis involving the lower extremity. Prominent right groin lymph nodes. DICTATED BY: Juve PENALOZA,Yessica Nicholas DATE/TIME DICTATED:03/09/180 RAILROAD CAR REPAIRMAN:STEVEN DATE/TIME TRANSCRIBED:03/09/181349 CONFIDENTIAL, DO NOT COPY WITHOUT APPROPRIATE AUTHORIZATION. <Electronically signed in Other Vendor System> SIGNED BY: Yessica An MD 03/09/181354, PATIENT: ANGEL EDMONDS PRESENT AGE: 57 PATIENT ACCOUNT NO: [id number] : 58 LOCATION: [facility] ORDERING PHYSICIAN: Eonc LAL SERVICE DATE: 03/09/18 EXAM TYPE: RAD - XRY-FOOT COMPLETE, R EXAMINATION: XR FOOT, RIGHT CLINICAL INFORMATION: History of amputation. Evaluate for osteomyelitis. COMPARISON: Right foot radiographs 09/04/2017. TECHNIQUE: AP, lateral, and oblique views of the right foot. FINDINGS: There are chronic postoperative changes of a transmetatarsal amputation of the right foot. There is a diffuse soft tissue swelling and an ulceration along the anterior aspect of the distal foot at the site of the wound closure. No abnormal erosive osseous changes are visualized at the osteotomy sites to support the suspicion of osteomyelitis. The distal component of an intramedullary brenda is visualized within the tibia. IMPRESSION: Chronic changes of a transmetatarsal amputation. There is relatively diffuse soft tissue swelling and an ulceration at the anterior aspect of the distal foot at the site of the wound closure. Otherwise unremarkable examination with no worrisome lytic osseous changes to support the clinical suspicion of osteomyelitis. DICTATED BY: Keon Hawkins MD DATE/ TIME DICTATED:03/09/181254 RAILROAD CAR REPAIRMAN:STEVEN DATE/TIME TRANSCRIBED: 03/09/181254 CONFIDENTIAL, DO NOT COPY WITHOUT APPROPRIATE AUTHORIZATION. < Electronically signed in Other Vendor System> SIGNED BY: Keon Hawkins MD 03/09/18 1306 Departure Departure Disposition: STILL A PATIENT Condition: Stable Clinical Impression Primary Impression: Osteomyelitis Referrals: Shilpa Samuel MD (PCP/Family) Departure Forms: Customer Survey General Discharge Information Comments 03/09/18, 23:00... discussed with dr. 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 pt merits admission for sepsis, likely osteo. Admission Note Spoke With: Oswaldo Patel MD Documentation of Exam: Documentation of any treatments & extenuating circumstances including Concerns Regarding Discharge (functional status, medication knowledge or non-compliance, living conditions, etc.) that warrant an admission rather than observation: pt with elevated wbc count and inflammatory markers, with open plantar wound nearly palpable to bone, strongly suspect osteomyelitis in this high risk patient. Regarding Discharge (functional status, medication knowledge or non-compliance, living conditions, etc.) that warrant an admission rather than observation: pt with elevated wbc count and inflammatory markers, with open plantar wound nearly palpable to bone, strongly suspect osteomyelitis in this high risk patient.
--- NOTE | 2018-03-10 00:55 | History & Physical ---
YonJoe 03/10/18 0054: General Information and HPI MD Statement: I have seen and personally examined ANGEL EDMONDS and documented this H&P. The patient is a 57 year old M who presented with a patient stated chief complaint of worsening leg pain. Source of Information: patient, family Exam Limitations: clinical condition History of Present Illness: Patient is a 57-year-old gentleman with insulin-dependent diabetes mellitus, chronic pancreatitis who presents to [facility] ED after 1 week history of ill-defined right lower extremity pain. Patient states that the pain started about a week ago, in the setting of no trauma or fall. He describes the pain as dull achy with intermittent sharp episodes in his inner thigh, with no radiation , no alleviating or aggravating factors. Patient tried to self manage the pain with [id number] Advil/Aleve to no effect. Patient visited Dr. Luong week and half ago for his regular follow-up and at the time it was ascertained that the patient had no osteomyelitis. Patient was admitted last year 02/23/2017 with increasing discoloration of right foot, and underwent I&D of the plantar space abscess and possible osteomyelitis. He denied any fevers or chills recently. In the ED, his lab work revealed severe leukocytosis with bandemia and segmented neutrophils. His ESR greater than 130. Foot x-ray showed chronic changes of transmetatarsal amputation, diffuse soft tissue swelling as well as ulceration of the anterior aspect of distal foot at the site of wound closure. No findings were suspicious of osteomyelitis. Patient has been minimally weightbearing to his right foot, has used crutches for support, but recently has been in a wheelchair due to worsening leg pain. He lives with his at home. Other systems reviewed and negative, except as above. Allergies/Medications Allergies: Coded Allergies: No Known Allergies (02/23/17) Home Med list Alprazolam 1 MG TABLET 1 TAB PO QHS PRN ANXIETY (Reported) Bupropion HCl (Bupropion XL) 300 MG TAB.ER.24H 1 TAB PO DAILY MENTAL HEALTH ( Reported) Dextroamphetamine/Amphetamine (Dextroamp-Amphetamine 5 MG Tab) 5 MG TABLET 1 TAB PO DAILY 1400 ANXIETY (Reported) Ergocalciferol (Vitamin D2) (Vitamin D2) 50,000 UNIT CAPSULE 1 CAP PO QW SUPPLEMENT (Reported) Ferrous Sulfate (Slow Fe) 142 MG (45 MG IRON) TABLET.ER 1 TAB PO DAILY SUPPLEMENT Insulin Aspart (Novolog) 100 UNIT/ML VIAL 0 UNITS SC TIDAC/HS DIABETES MELLITUS BEFORE MEALS Blood Insulin Sugar Units <80 0 81-150 0 151-200 2 201-250 4 251-300 6 301-350 8 351-400 10 >400 GIVE 12 UNITS AND Call Doctor AT BEDTIME Blood Insulin Sugar Units <80 0 81-100 0 101-200 0 201-250 0 251-300 1 301-350 2 351-400 3 >400 GIVE 4 UNITS AND Call Doctor Insulin Detemir (Levemir) 100 UNIT/ML VIAL 12 UNITS SC BID DIABETES MELLITUS Lancets 1 EACH EACH 1 UNIT SC TID/HS TO CHECK BLOOD SUGAR Lipase/Protease/Amylase (Aguila Bah 36,000 Units Capsule) 36K-114K CAPSULE. 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 Exam & Diagnostic Data Last 24 Hrs of Vital Signs/I&O Vital Signs Date Time Temp Pulse Resp B/P B/P Pulse O2 O2 Flow FiO2 Mean Ox Delivery Rate 03/10 0330 98.7 106 20 150/80 100 Room Air 03/10 0306 98.2 95 17 143/82 100 Room Air 03/09 2013 96.5 96 20 98/59 97 Room Air Intake & Output 03/10 0800 03/10 0000 03/09 1600 Intake Total 1000 Output Total Balance 1000 Intake, IV 1000 Patient 209 lb Weight Weight Bed scale Measurement Method Physical Exam General Appearance Alert, Oriented X3 HEENT Atraumatic, PERRLA, EOMI Neck Supple, No JVD Cardiovascular Regular Rate, Normal S1, Normal S2 Lungs Clear to Auscultation, Normal Air Movement Abdomen Normal Bowel Sounds, Soft, No Tenderness Extremities No Clubbing, No Cyanosis, No Edema Last 24 Hrs of Labs/Steven: Microbiology 03/09 2355 BLOOD: Blood Culture - RECD 03/09 2340 BLOOD: Blood Culture - RECD Diagnostic Data Other Results Foot x-ray: IMPRESSION: Chronic changes of a transmetatarsal amputation. There is relatively diffuse soft tissue swelling and an ulceration at the anterior aspect of the distal foot at the site of the wound closure. Otherwise unremarkable examination with no worrisome lytic osseous changes to support the clinical suspicion of osteomyelitis. Assessment/Plan Assessment: 57-year-old gentleman with poorly controlled diabetes, history of right foot osteomyelitis status post transmetatarsal amputation presents to [facility] ED with ill-defined worsening right leg pain in the setting of profound leukocytosis with bandemia, ESR>130, AGMA, YNES, a normal lactate, with the right foot open wound (palpable nearly to the bone per ED physician) presentation suspicious for soft tissue infection versus osteomyelitis. 1. Suspected osteomyelitis. Meets sepsis criteria. IV hydration. IV antibiotics. Podiatry consult. MRI foot, if deemed necessary by podiatry. Patient will need duplex ultrasonography right lower extremity at some point in the future to assess patency of his peripheral arteries. 2. Anion gap metabolic acidosis. Normal lactate, likely secondary to YNES and resultant organic acidosis. Fluid hydration. 3. YNES. Hold any nephrotoxic agents. Unclear to the amount of NSAIDs patient has been taking for his pain. IV hydration for now. Follow-up BMP in morning. 4. Normocytic anemia. Likely anemia of inflammation. Iron studies. 5. Hyponatremia. Euvolemic on exam. Urinalysis and urine lites. Continue to monitor. Perhaps, related to Wellbutrin. 6. IDDM. Blood glucose of 80 in the ED. Accu-Cheks 3 times daily before meals at bedtime. Levemir 6 units twice daily for now, uptitrate depending on FSGs. NovoLog ISS. 7. Anxiety and depression. Continue Wellbutrin and Xanax. 8. Chronic pancreatitis. Continue enzyme replacement. Full code. Lovenox for DVT prophylaxis. Consistent carbohydrate diet. As Ranked By This Provider Problem List: 1. Cellulitis of foot, right 2. Diabetes mellitus 3. Osteomyelitis Core Measures/Misc (06/25) Acute Coronary Syndrome ACS Diagnosis: No Congestive Heart Failure Congestive Heart Failure Diagnosis No Cerebrovascular Accident CVA/TIA Diagnosis: No VTE (View Protocol) VTE Risk Factors Immobility No Mechanical VTE Prophylaxis d/t N/A MechProphylax Ordered No VTE Pharm Prophylaxis d/t NA PharmProphylax ordered Sepsis (View protocol) Sepsis Present: Yes If YES complete Sepsis Event Note If YES complete Sepsis Event Note Oswaldo Patel MD 03/10/18 0528: Core Measures/Misc (06/25) Sepsis (View protocol) If YES complete Sepsis Event Note If YES complete Sepsis Event Note Attending MD Review Statement Attending Statement Attending MD Statement: examined this patient, discuss w/resident/PA/BINDING CUTTER SYNTHETIC CLOTH, agreed w/resident/PA/BINDING CUTTER SYNTHETIC CLOTH, discussed with nursing Attending Assessment/Plan: Mr. Edmonds is a 57 y/o male with history of poorly controlled diabetes, right foot osteomyelitis status post metatarsal amputation presents with right leg pain going on for the past few days. On examination blood pressure 98/59, heart rate of 96, temperature 96.5, saturating 97% on room air Assessment 1. Right foot infection - possible osteomyelitis 2. Anion gap metabolic acidosis 3. Acute kidney injury 4. Euvolemic hyponatremia 5. Insulin-dependent diabetes mellitus Plan Continue with IV Unasyn. IV hydration. Podiatry consultation. Obtain urinalysis and urinary lites. Avoid nephrotoxic agents.
[2018-03-10 03:30] VITALS: BP 150/80
[2018-03-10 06:56] VITALS: BP 130/70
[2018-03-10 08:02] LABS: ABSOLUTE BASOPHIL COUNT 0 /CUMM (0.0-0.2); ABSOLUTE EOSINOPHIL COUNT 0 /CUMM (0.0-0.7); ABSOLUTE GRANULOCYTE CT 18.7 /CUMM (1.4-6.5); ABSOLUTE LYMPH COUNT 0.8 /CUMM (1.2-3.4); ABSOLUTE MONOCYTE COUNT 1.4 /CUMM (0.10-0.60); BASOPHIL % 0 % (0.0-2.0); EOSINOPHIL % 0.1 % (0-5); GRANULOCYTE % 89.5 % (42.2-75.2); HEMATOCRIT 24.8 % (42-52); MEAN CORPUSCULAR HGB 29.6 PG (27.0-31.0); MEAN CORPUSCULAR HGB CONC 34.5 G/DL (33.0-37.0); MEAN CORPUSCULAR VOLUME 85.9 FL (80.0-94.0); MEAN PLATELET VOLUME 7.7 FL (7.4-10.4); PLATELET COUNT 230 /CUMM (130-400); RBC DISTRIBUTION WIDTH 15.6 % (11.5-14.5); RED BLOOD CELL CT 2.89 /CUMM (4.70-6.10); WHITE BLOOD CELL COUNT 20.9 /CUMM (4.8-10.8)
[2018-03-10] MEDS ORDERED: TRESIBA FL200 UNIT/1 SC (09:52)
[2018-03-10] MEDS ORDERED: GABAPENTIN100 M2 PO (09:53)
[2018-03-10] MEDS ORDERED: VITAMIN B12 PO (09:55)
[2018-03-10] MEDS ORDERED: [UNRECOGNIZED DRUG - OTHER] PO (09:56)
[2018-03-10] MEDS ORDERED: VITAMIN C500 M7 PO (09:56)
--- NOTE | 2018-03-10 11:48 | PN- Att Addend ---
Attending Addendum Attending Brief Note Patient seen and examined. 57-year-old male past medical history of diabetes, on insulin with previous osteomyelitis was here with sepsis, he has a cellulitis with likely osteomyelitis in the right foot area. He is growing gram-positive cocci in chains in his blood cultures, has a white count of 22,000 and April with an anion gap acidosis. He made the ED visit on March 09 but signed out AMA and returned yesterday because of ongoing complaints. At this point will continue the IV Unasyn, continue the IV fluids place a formal podiatry consult as I think he'll need to be debrided and follow closely.
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
[2018-03-10 14:14] VITALS: BP 122/58
[2018-03-10 18:31] LABS: ABSOLUTE BASOPHIL COUNT 0 /CUMM (0.0-0.2); ABSOLUTE EOSINOPHIL COUNT 0 /CUMM (0.0-0.7); ABSOLUTE GRANULOCYTE CT 17.4 /CUMM (1.4-6.5); ABSOLUTE LYMPH COUNT 0.8 /CUMM (1.2-3.4); ABSOLUTE MONOCYTE COUNT 1.4 /CUMM (0.10-0.60); BASOPHIL % 0 % (0.0-2.0); EOSINOPHIL % 0.1 % (0-5); GRANULOCYTE % 88.9 % (42.2-75.2); HEMATOCRIT 25.5 % (42-52); MEAN CORPUSCULAR HGB 29.5 PG (27.0-31.0); MEAN CORPUSCULAR VOLUME 86.9 FL (80.0-94.0); MEAN PLATELET VOLUME 7.7 FL (7.4-10.4); PLATELET COUNT 264 /CUMM (130-400); RBC DISTRIBUTION WIDTH 15.6 % (11.5-14.5); RED BLOOD CELL CT 2.94 /CUMM (4.70-6.10); WHITE BLOOD CELL COUNT 19.6 /CUMM (4.8-10.8)
[2018-03-10 22:14] VITALS: BP 134/76
[2018-03-11 06:38] VITALS: BP 120/60
--- NOTE | 2018-03-11 08:32 | PN- Housestaff ---
Emperatriz PENALOZA,Jarrod 03/11/18 0832: Subjective Follow-up For: Sepsis 2/2 Suspected osteomyeltitis of R foot YNES Anion Gap Metabolic Acidosis Hyponatremia Tele-Events Since Last Visit: Off [employer] Med Hold Subjective: Patient was seen and examined today. Patient reports that he has mild leg pain. Denies any other complaints today. Review of Systems Constitutional: Reports: see HPI. Objective Last 24 Hrs of Vital Signs/I&O Vital Signs Date Time Temp Pulse Resp B/P B/P Pulse O2 O2 Flow FiO2 Mean Ox Delivery Rate 03/11 1501 97.4 89 20 120/52 99 03/11 0638 98.9 85 20 120/60 98 Room Air 03/11 0000 Room Air 03/10 2214 99.6 95 16 134/76 98 Room Air Intake & Output 03/11 1600 03/11 0800 03/11 0000 Intake Total 1420 440 770 Output Total 775 Balance 1420 -335 770 Intake, IV 600 130 Intake, Oral 820 440 640 Output, Urine 775 Patient 209 lb Weight Weight Bed scale Measurement Method Physical Exam General Appearance: Alert, Oriented X3, Cooperative, No Acute Distress Sepsis Skin Exam (color): Normal for Ethnicity HEENT: Atraumatic, Mucous Membr. moist/pink Cardiovascular: Regular Rate, Normal S1, Normal S2 Lungs: Clear to Auscultation, Normal Air Movement Abdomen: Normal Bowel Sounds, Soft, No Tenderness Neurological: decreased sensation in right leg up to knee Extremities: right foot s/p TMA - with non healing ulcer with granulation tissue , no significant drainage, covered with xerorform dressing, nonhealing ulcer at the plantar surface -not infected, no tendernes, erythema or discharge Current Medications: Current Medications Sig/Archana Start time Last Medication Dose Route Stop Time Status Admin Acetaminophen 1,000 MG Q6P PRN 03/10 0045 AC IV Alprazolam 1 MG AT BEDTIME 03/10 2100 AC 03/10 PO 03/17 Ampicillin Sodium/ 3,000 MG Q6 03/10 600 AC 03/11 Sulbactam Sodium IV 1221 Sodium Chloride 100 ML Ascorbic Acid 500 MG BID 03/10 2100 AC 03/11 PO 0825 Bupropion HCl 300 MG DAILY 03/10 900 AC 03/11 PO 0825 Enoxaparin Sodium 40 MG DAILY 03/10 900 AC 06/03 SC 1014 Ferrous Sulfate 325 MG DAILY 03/10 0900 AC 03/11 PO 0825 Gabapentin 100 MG AT BEDTIME 03/10 2100 AC 03/10 PO 2046 Insulin Aspart 0 TIDAC 03/10 0800 AC 03/11 SC 1716 Insulin Detemir 6 UNITS BID 03/10 0900 AC 03/11 SC 0825 Lactated Ringer's 1,000 ML Q8H 03/11 0130 DC 03/11 IV 0217 Lipase/Protease/ 3 CAP WM 03/10 0800 AC 03/11 Amylase PO 1716 Morphine Sulfate 2 MG Q4P PRN 03/10 0045 AC 03/11 IV 1626 Multivitamins 1 TAB DAILY 03/10 1145 AC 03/11 PO 0825 Sodium Chloride 1,000 ML Q13H 03/10 0045 DC 03/10 IV 03/11 1544 0355 Last 24 Hrs of Lab/Steven Results Last 24 Hrs of Labs/Mics: Laboratory Tests 03/11/18 0625: Anion Gap 10, Estimated GFR > 60, BUN/Creatinine Ratio 26.7 H Assessment/Plan Assessment: Assessment: Patient is a 57 y/o male with PMH of DM, chronic pancreatitis, significant diabetic neuropathy and s/p previous TMA of right foot presenting this admission with right lower extremity pain. Patient has been following up with Dr. Matthews in the wound care clinic for the non healing ulcer. Patient today remains afebrile with improvement in leukocytosis currently on IV Unasyn covering blood culture growing beta strep b strep. Patient remains stable at this point. Has been evaluated by podiatry. Patient's creatinine - improving now 1.2. Problems: Sepsis 2/2 to right foot infection, suspected osteomyeltis Beta Group B Strep Bacteremia - on IV Unasyn YNES - resolving History of DM, chronic pancreatitis, depression/anxiety, anemia Plan: - Gen Med hold on tele - Continue to monitor vitals - Continue to monitor WBC - Continue IV Unasyn - Podiatry on board. Appreciate recommendations - MRI of foot tomorrow - Continue home medications - Avoid nephrotoxic agents - Wound care for ulcers - Gabapentin, tylenol, morphine for pain control - Insulin SS, accuchecks TIDAC/qHS - Diet: diabetic diet - Code: Full code - DVT PPx: ALPs, Lovenox Problem List: 1. Osteomyelitis Pain Ratin Pain Location: right leg Pain Goal: Pain 4 or less Pain Plan: gabapentin tylenol Tomorrow's Labs & Rationales: cbc Ivette Bui MD 03/11/18 1100: Attending MD Review Statement Attending Statement Attending MD Statement: examined this patient, discuss w/resident/PA/IMPLEMENTATION LEAD, agreed w/resident/PA/IMPLEMENTATION LEAD, reviewed EMR data (avail), discussed with nursing, reviewed images Attending Assessment/Plan: Overall patient appears stated doing better. His white count came down from 22, 000-19,000 yesterday evening. He is diabetic, hypertensive, on insulin is here with strep sepsis, ynes from this wound in the right transmetatarsal area from previous amputation. Appreciate podiatry evaluation in the plan as an MRI on Monday to rule out an osteomyelitis and abscess.
[2018-03-11 15:01] VITALS: BP 120/52
[2018-03-11 22:22] VITALS: BP 134/70
[2018-03-12 06:45] VITALS: BP 130/66
--- NOTE | 2018-03-12 08:02 | PN- Housestaff ---
See Addendum Subjective Follow-up For: Sepsis 2/2 Suspected osteomyeltitis of R foot YNES Anion Gap Metabolic Acidosis Hyponatremia Tele-Events Since Last Visit: [employer] Med Hold Subjective: Patient was seen and examined today. Patient sitting up in bed eating breakfast this morning. Patient denies any complaints today. Denies foot/leg pain this morning. Denies fever/chills, n/v, chest pain, palpitations, abdominal pain. Review of Systems Constitutional: Reports: no symptoms. Cardiovascular: Reports: no symptoms. Respiratory: Reports: no symptoms. Gastrointestinal: Reports: no symptoms. Genitourinary: Reports: no symptoms. Musculoskeletal: Denies: see HPI. Objective Last 24 Hrs of Vital Signs/I&O Vital Signs Date Time Temp Pulse Resp B/P B/P Pulse O2 O2 Flow FiO2 Mean Ox Delivery Rate 03/12 1445 99.1 91 18 130/62 99 Room Air 03/12 0645 99.2 90 20 130/66 98 Room Air 03/11 2222 100.3 93 16 134/70 93 Room Air Intake & Output 03/12 1600 03/12 0800 03/12 0000 Intake Total 560 320 670 Output Total 300 100 Balance 260 220 670 Intake, IV 110 220 130 Intake, Oral 450 100 540 Number 1 Bowel Movements Output, Urine 300 100 Patient 206 lb Weight Weight Bed scale Measurement Method Physical Exam General Appearance: Alert, Oriented X3, Cooperative, No Acute Distress Other Physical Findings: Sepsis Skin Exam (color): Normal for Ethnicity Cardiovascular: Regular Rate, Normal S1, Normal S2 Lungs: Clear to Auscultation, Normal Air Movement Abdomen: Normal Bowel Sounds, Soft, No Tenderness Neurological: decreased sensation in right leg up to knee Extremities: right foot s/p TMA - with non healing ulcer with granulation tissue , no significant drainage, covered with xerorform dressing, nonhealing ulcer at the plantar surface -not infected, no tendernes, erythema or discharge Current Medications: Current Medications Sig/Archana Start time Last Medication Dose Route Stop Time Status Admin Acetaminophen 1,000 MG Q6P PRN 03/10 0045 AC IV Alprazolam 1 MG AT BEDTIME 03/10 2100 AC 03/11 PO 03/17 Ampicillin Sodium/ 3,000 MG Q6 03/10 06 AC 03/12 Sulbactam Sodium IV 1409 Sodium Chloride 100 ML Ascorbic Acid 500 MG BID 03/10 2100 AC 03/12 PO 903 Bupropion HCl 300 MG DAILY 03/10 900 AC 03/12 PO 903 Enoxaparin Sodium 40 MG DAILY 03/10 900 AC 03/12 SC 09 Ferrous Sulfate 325 MG DAILY 03/10 900 AC 03/12 PO 903 Gabapentin 100 MG AT BEDTIME 03/10 2100 AC 03/11 PO 202 Insulin Aspart 0 TIDAC 03/10 800 AC 03/12 SC 140 Insulin Detemir 6 UNITS BID 03/10 900 AC 03/12 SC 09 Lipase/Protease/ 3 CAP WM 03/10 800 AC 03/12 Amylase PO 140 Morphine Sulfate 2 MG Q4P PRN 03/10 0045 AC 03/12 IV 0512 Multivitamins 1 TAB DAILY 03/10 1145 AC 03/12 PO 903 Last 24 Hrs of Lab/Steven Results Last 24 Hrs of Labs/Mics: Laboratory Tests 03/12/18 0630: Anion Gap 10, Estimated GFR > 60, BUN/Creatinine Ratio 24.0, CBC w Diff NO MAN DIFF REQ, RBC 2.67 L, MCV 87.2, MCH 29.5, MCHC 33.9, RDW 16.2 H, MPV 7.5, Gran % 80.2 H, Lymphocytes % 8.8 L, Monocytes % 9.8 H, Eosinophils % 0.9, Basophils % 0.3, Absolute Granulocytes 10.8 H, Absolute Lymphocytes 1.2, Absolute Monocytes 1.3 H, Absolute Eosinophils 0.1, Absolute Basophils 0 Assessment/Plan Assessment: Assessment: Patient is a 57 y/o male with PMH of DM, chronic pancreatitis, significant diabetic neuropathy and s/p previous TMA of right foot presenting this admission with right lower extremity pain. Patient has been following up with Dr. Matthews in the wound care clinic for the non healing ulcer. Patient overnight spiked a low grade temperature on IV Unasyn. Improvement in leukocytosis currently on IV Unasyn covering blood culture growing beta strep b strep. Patient remains stable at this point. Has been evaluated by podiatry. Patient's renal function has improved. Creatinine is now 1.0. MRI of the foot showing, soft tissue ulcer with presumed cellulitis distal and plantar to the 4th metatarsal with no evidence of osteomyelitis or abscess. There is also postraumatic/degenerative changes of the midfoot. Problems: Sepsis 2/2 to right foot infection, MRI negative for osteomyelitis Beta Group B Strep Bacteremia - on IV Unasyn YNES - resolved History of DM, chronic pancreatitis, depression/anxiety, anemia Plan: - Gen Med hold on tele - Continue to monitor vitals - Continue to monitor WBC - Continue IV Unasyn pending ID recommendations - Podiatry on board. Appreciate recommendations - ID consulted. Patient is spiking fever on antibiotic therapy. - Continue home medications - Avoid nephrotoxic agents - Wound care for ulcers - Gabapentin, tylenol, morphine for pain control - Insulin SS, accuchecks TIDAC/qHS - Diet: diabetic diet - Code: Full code - DVT PPx: ALPs, Lovenox Problem List: 1. Cellulitis of foot, right 2. Diabetes mellitus Pain Ratin Pain Location: left foot Pain Goal: Remain pain free Pain Plan: per pain pathway Tomorrow's Labs & Rationales: CBC BEP
[2018-03-12 08:07] LABS: ABSOLUTE BASOPHIL COUNT 0 /CUMM (0.0-0.2); ABSOLUTE EOSINOPHIL COUNT 0.1 /CUMM (0.0-0.7); ABSOLUTE GRANULOCYTE CT 10.8 /CUMM (1.4-6.5); ABSOLUTE LYMPH COUNT 1.2 /CUMM (1.2-3.4); ABSOLUTE MONOCYTE COUNT 1.3 /CUMM (0.10-0.60); BASOPHIL % 0.3 % (0.0-2.0); EOSINOPHIL % 0.9 % (0-5); GRANULOCYTE % 80.2 % (42.2-75.2); HEMATOCRIT 23.2 % (42-52); MEAN CORPUSCULAR HGB 29.5 PG (27.0-31.0); MEAN CORPUSCULAR HGB CONC 33.9 G/DL (33.0-37.0); MEAN CORPUSCULAR VOLUME 87.2 FL (80.0-94.0); MEAN PLATELET VOLUME 7.5 FL (7.4-10.4); PLATELET COUNT 316 /CUMM (130-400); RBC DISTRIBUTION WIDTH 16.2 % (11.5-14.5); RED BLOOD CELL CT 2.67 /CUMM (4.70-6.10); WHITE BLOOD CELL COUNT 13.4 /CUMM (4.8-10.8)
--- NOTE | 2018-03-12 14:31 | MRI REPORT ---
EXAMINATION: MRI FOOT WITHOUT CONTRAST, RIGHT CLINICAL INFORMATION: Right foot pain, chronic nonhealing ulcer. COMPARISON: Radiographs 03/09/2018. MRI 09/08/2017. TECHNIQUE: MRI without contrast is performed on the right hindfoot. FINDINGS: Redemonstration of the transmetatarsal amputation and resection of the 5th metatarsal. There is evidence of a soft tissue ulcer distal to the 4th metatarsal with underlying soft tissue edema/cellulitis. No definite abscess. There is mild marrow edema of the underlying 4th metatarsal without loss of T1 fatty marrow signal to definitively diagnose osteomyelitis. Similarly, there is reactive marrow edema at the distal aspect of the 1st and 2nd metatarsals. There is marked marrow edema at the junction of the navicular with the medial and middle cuneiforms and at the junction of the middle cuneiform with the base of the 2nd metatarsal which is new from 2017. This is most likely posttraumatic and/or degenerative. There is diffuse subcutaneous edema, prominent along the dorsum of the hindfoot, and surrounding the ankle. No ankle joint effusion. IMPRESSION: Soft tissue ulcer with presumed cellulitis distal and plantar to the 4th metatarsal. No discrete abscess. No definite evidence of osteomyelitis. Marked marrow edema of the midfoot as described which is new from 2017 and most likely posttraumatic and/or degenerative.
[2018-03-12 14:45] VITALS: BP 130/62
--- NOTE | 2018-03-12 18:10 | Cons- Infect Disease ---
General Information and HPI Consulting Request Date of Consult: 03/12/18 Requested By: Shawn Alatorre MD Reason for Consult: Positive blood cultures for Group G strep Source of Information: patient, old records History of Present Illness: This is a 57-year-old man with a history of hypertension, coronary disease and diabetes, with a peripheral neuropathy, last hospitalized one year prior to admission with gas gangrene of the right foot, status post TMA and treatment with a 4 week course of IV antibiotics for residual osteomyelitis, status post excision of the fifth metatarsal stump 6 months prior to admission, with intermittent drainage from a nonhealing wound on the plantar aspect of his foot for the past year, admitted on March 09 after presenting to the emergency room with a 2 day history of right thigh pain and generalized weakness. On admission he was febrile to 101. Laboratory data revealed a white blood cell count of 22, 000, with 82 segs and 5 bands, ESR greater than 130, BUN/creatinine 34 and 1.6, with normal liver enzymes. X-ray of the right foot revealed chronic postop changes, with diffuse soft tissue swelling but with no abnormal erosive osseous changes. A Doppler of the right leg was negative. He was begun on Unasyn with defervescence, though he did have a low-grade temperature to 100.3 on March 11, and with a continued decrease in his white blood cell count. An MRI this morning was negative for osteomyelitis. At present he feels improved with no complaints. Allergies/Medications Allergies: Coded Allergies: No Known Allergies (02/23/17) Home Med List: Alprazolam 1 MG TABLET 1 TAB PO QHS PRN ANXIETY (Reported) Ascorbic Acid (Vitamin C) 500 MG CAPSULE.ER 2 TAB PO DAILY VITAMIN SUPPORT ( Reported) Bupropion HCl (Bupropion XL) 300 MG TAB.ER.24H 1 TAB PO DAILY MENTAL HEALTH ( Reported) Dextroamphetamine/Amphetamine (Dextroamp-Amphetamine 5 MG Tab) 5 MG TABLET 1 TAB PO DAILY 1400 ANXIETY (Reported) Ergocalciferol (Vitamin D2) (Vitamin D2) 50,000 UNIT CAPSULE 1 CAP PO QW SUPPLEMENT (Reported) Ferrous Sulfate (Slow Fe) 142 MG (45 MG IRON) TABLET.ER 1 TAB PO DAILY SUPPLEMENT Gabapentin 100 MG CAPSULE 1 TAB PO AT BEDTIME MOOD STABILITY (Reported) Insulin Aspart (Novolog) 100 UNIT/ML VIAL 0 UNITS SC TIDAC/HS DIABETES MELLITUS BEFORE MEALS Blood Insulin Sugar Units <80 0 81-150 0 151-200 2 201-250 4 251-300 6 301-350 8 351-400 10 >400 GIVE 12 UNITS AND Call Doctor AT BEDTIME Blood Insulin Sugar Units <80 0 81-100 0 101-200 0 201-250 0 251-300 1 301-350 2 351-400 3 >400 GIVE 4 UNITS AND Call Doctor Insulin Degludec (Tresiba Flextouch U-200) 200 UNIT/ML (3 ML) INSULN.PEN 27 UNITS SC AT BEDTIME DIABETES (Reported) Lancets 1 EACH EACH 1 UNIT SC TID/HS TO CHECK BLOOD SUGAR Lipase/Protease/Amylase (Crenik Bah 36,000 Units Capsule) 36K-114K CAPSULE. 3 CAP PO TIDAC PANCREATIC ENZYMES (Reported) Syringe & Needle,Insulin,1 Ml (Insulin Syringe) 29 GAUGE X 7/16" DISP.SYRIN 1 UNIT SC TID/HS TO GIVE INSULIN [VITAMIN B12] 500 MCG CAP 1 TAB PO DAILY VITAMIN SUPPORT (Reported) [ZINC PERES] 50 MG CAP 4 TAB PO DAILY VITAMIN SUPPORT (Reported) Past History Travel History Traveled to [place] past 21 day No Medical History Blood Transfusion Hx: No Neurological: peripheral neuropathy EENT: NONE Cardiovascular: CAD, hypertension Respiratory: NONE Gastrointestinal: pancreatitis (chronic) Hepatic: NONE Renal: NONE Musculoskeletal: NONE Psychiatric: anxiety, depression Endocrine: diabetes Blood Disorders: NONE Cancer(s): NONE PEOPLE GREETER/Reproductive: NONE History of MRSA: No History of VRE: No History of CDIFF: No Isolation History: Standard Surgical History Surgical History: right lower extremity surgery with hardware in place following a skiing accident, s/p right TMA Family History Relations & Conditions If Any: MOTHER Relation not specified for: FH: diabetes mellitus Psychosocial History Where Do You Live? Home Services at Home: Nursing Primary Language: Urdu Smoking Status: Current Everyday Smoker ETOH Use: denies use Review of Systems Review of Systems All Other Systems: Reviewed and Negative Exam & Diagnostic Data Last 24 Hrs of Vital Signs/I&O Vital Signs Date Time Temp Pulse Resp B/P B/P Pulse O2 O2 Flow FiO2 Mean Ox Delivery Rate 03/12 1445 99.1 91 18 130/62 99 Room Air 03/12 0645 99.2 90 20 130/66 98 Room Air 03/11 2222 100.3 93 16 134/70 93 Room Air Intake & Output 03/12 1600 06/ 0800 06/ 0000 Intake Total 560 320 670 Output Total 300 100 Balance 260 220 670 Intake, IV 110 220 130 Intake, Oral 450 100 540 Number 1 Bowel Movements Output, Urine 300 100 Patient 206 lb Weight Weight Bed scale Measurement Method Physical Exam Other Physical Findings: He is awake and alert in no acute distress. T-max 100.3. Skin reveals no rash. HEENT exam is negative. Neck is supple with no adenopathy. Lungs are clear. Heart regular rhythm with no murmur. Abdomen is soft, nontender with positive bowel sounds. Back no CVA tenderness. Extremities brawny discoloration of the right lower extremity, with 1+ edema, cool to touch; status post right TMA with a plantar ulcer, with no erythema or active drainage, 1+ pulses; no cyanosis, clubbing or edema of the left foot. Neuro neuropathy both feet. Last 24 Hours of Lab Results: Laboratory Tests 03/12 0630 Chemistry Sodium (137 - 145 mmol/L) 137 Potassium (3.5 - 5.1 mmol/L) 3.9 Chloride (98 - 107 mmol/L) 103 Carbon Dioxide (22 - 30 mmol/L) 24 Anion Gap (5 - 16) 10 BUN (9 - 20 mg/dL) 24 H Creatinine (0.7 - 1.2 mg/dL) 1.0 Estimated GFR (>60 ml/min) > 60 BUN/Creatinine Ratio (7 - 25 %) 24.0 Hematology CBC w Diff NO MAN DIFF REQ WBC (4.8 - 10.8 /CUMM) 13.4 H RBC (4.70 - 6.10 /CUMM) 2.67 L Hgb (14.0 - 18.0 G/DL) 7.9 L Hct (42 - 52 %) 23.2 L MCV (80.0 - 94.0 FL) 87.2 MCH (27.0 - 31.0 PG) 29.5 MCHC (33.0 - 37.0 G/DL) 33.9 RDW (11.5 - 14.5 %) 16.2 H Plt Count (130 - 400 /CUMM) 316 MPV (7.4 - 10.4 FL) 7.5 Gran % (42.2 - 75.2 %) 80.2 H Lymphocytes % (20.5 - 51.1 %) 8.8 L Monocytes % (1.7 - 9.3 %) 9.8 H Eosinophils % (0 - 5 %) 0.9 Basophils % (0.0 - 2.0 %) 0.3 Absolute Granulocytes (1.4 - 6.5 /CUMM) 10.8 H Absolute Lymphocytes (1.2 - 3.4 /CUMM) 1.2 Absolute Monocytes (0.10 - 0.60 /CUMM) 1.3 H Absolute Eosinophils (0.0 - 0.7 /CUMM) 0.1 Absolute Basophils (0.0 - 0.2 /CUMM) 0 Last 24 Hours of Steven Results: Blood cultures 2 March 09 positive for Group G strep Diagnostic Data Recent Imaging Findings: X-ray of the right foot revealed chronic postop changes, with diffuse soft tissue swelling but with no abnormal erosive osseous changes. Doppler of the right leg was negative. MRI of the right foot March 12 reveals a soft tissue ulcer with presumed cellulitis distal and plantar to the fourth metatarsal, with no definite evidence of osteomyelitis and no discrete abscess Assessment/Plan Assessment/Plan Impression: This is a 57-year-old man with a history of diabetes, with a peripheral neuropathy, status post right TMA 1 year prior to admission and excision of the fifth metatarsal stump 6 months prior to admission, with intermittent drainage from a nonhealing wound on the plantar aspect of his foot for the past year, admitted on March 09 with a 2 day history of right thigh pain and generalized weakness, found to be febrile with a leukocytosis, with blood cultures 2 positive for Group G strep. Though his MRI does not show definitive evidence for osteomyelitis I am still concerned about possible osteomyelitis given the chronicity of his ulcer and the report of intermittent drainage for the past year. A bone biopsy, therefore, may still need to be considered and will discuss this with Podiatry. The results of this biopsy would clearly have implications with regard to the duration and route of antibiotics. He is currently on Unasyn, which should provide adequate coverage for the Group G strep isolated from his blood, and this can be continued pending further evaluation. Suggestion: 1. Would pursue a bone biopsy (will discuss with Podiatry) 2. Consider need for vascular surgery evaluation 3. Continue Unasyn pending above Consult Acknowledgment - Thank you for your consult request.
--- NOTE | 2018-03-12 18:57 | Patient Discharge Instructions ---
Discharge Instructions General Discharge Information You were seen/treated for: Right foot infection Special Instructions: 1. Please follow up with your pcp within 1 week of discharge 2. Please follow up with Dr. Matthews for biopsy results 3. Please take antibiotics as directed for next 9 days Diet Recommended Diet: Diabetic Activity Activity Limited to: No weight bearing (on R foot) Acute Coronary Syndrome Inclusion Criteria At DC or during hospital stay patient has or had the following: ACS DIAGNOSIS No Discharge Core Measures Meds if any: Prescribed or Continued at Discharge Meds if any: NOT Prescribed or Continued at Discharge Congestive Heart Failure Inclusion Criteria At DC or during hospital stay patient has or had the following: CHF DIAGNOSIS No Discharge Core Measures Meds if any: Prescribed or Continued at Discharge Meds if any: NOT Prescribed or Continued at Discharge Cerebrovascular accident Inclusion Criteria At DC or during hospital stay patient has or had the following: CVA/TIA Diagnosis No Discharge Core Measures Meds if any: Prescribed or Continued at Discharge Meds if any: NOT Prescribed or Continued at Discharge Venous thromboembolism Inclusion Criteria VTE Diagnosis No VTE Type NONE VTE Confirmed by (Test) NONE Discharge Core Measures - Per Current guidelines, there needs to be overlap - treatment for the first 5 days of Warfarin therapy. - If discharged on Warfarin prior to 5 days of - overlap therapy, the patient will need to be - assessed for post discharge needs including - *Post discharge parental anticoagulation - *Warfarin and/or parental anticoagulation education - *Follow up date to check INR post discharge At least 5 days overlap therapy as Inpatient No Meds if any: Prescribed or Continued at Discharge Note: Overlap Therapy is Warfarin and Anticoagulant Meds if any: NOT Prescribed or Continued at Discharge
[2018-03-12 22:03] VITALS: BP 134/78
[2018-03-13 06:55] VITALS: BP 128/68
[2018-03-13 08:00] LABS: ABSOLUTE BASOPHIL COUNT 0 /CUMM (0.0-0.2); ABSOLUTE EOSINOPHIL COUNT 0.2 /CUMM (0.0-0.7); ABSOLUTE GRANULOCYTE CT 10.6 /CUMM (1.4-6.5); ABSOLUTE LYMPH COUNT 1.1 /CUMM (1.2-3.4); ABSOLUTE MONOCYTE COUNT 1.5 /CUMM (0.10-0.60); BASOPHIL % 0.2 % (0.0-2.0); EOSINOPHIL % 1.3 % (0-5); GRANULOCYTE % 78.7 % (42.2-75.2); HEMATOCRIT 24.1 % (42-52); MEAN CORPUSCULAR HGB 29.2 PG (27.0-31.0); MEAN CORPUSCULAR HGB CONC 33.8 G/DL (33.0-37.0); MEAN CORPUSCULAR VOLUME 86.2 FL (80.0-94.0); MEAN PLATELET VOLUME 7.4 FL (7.4-10.4); PLATELET COUNT 356 /CUMM (130-400); RBC DISTRIBUTION WIDTH 16.6 % (11.5-14.5); WHITE BLOOD CELL COUNT 13.5 /CUMM (4.8-10.8)
--- NOTE | 2018-03-13 08:08 | PN- Housestaff ---
Alexis PENALOZA,[facility] 03/13/18 0808: Subjective Follow-up For: Sepsis 2/2 Suspected osteomyeltitis of R foot YNES Anion Gap Metabolic Acidosis Hyponatremia Subjective: Patient seen and examined. We discussed with him in detail about the possibility of underlying osteomyelitis in setting of chronic nonhealing and draining wound for past 1 year. The patient wants to be discharged home on oral antibiotics today. He stated that staying in the hospital is costing him his family and his finances. We are going to reach out to Dr. Luong about discussing possible bone biopsy with the patient. He has good relationship with the patient. Review of Systems Constitutional: Reports: see HPI. Objective Last 24 Hrs of Vital Signs/I&O Vital Signs Date Time Temp Pulse Resp B/P B/P Pulse O2 O2 Flow FiO2 Mean Ox Delivery Rate 03/13 0655 98.7 90 22 128/68 98 Room Air 03/12 2203 100.0 89 24 134/78 99 / 1445 99.1 91 18 130/62 99 Room Air Intake & Output 03/13 1600 03/13 0800 03/13 0000 Intake Total 320 370 Output Total Balance 320 370 Intake, IV 220 220 Intake, Oral 100 150 Patient 215 lb Weight Physical Exam General Appearance: Alert, Oriented X3, Moderate Distress Cardiovascular: Normal S1, Normal S2 Lungs: Clear to Auscultation, Normal Air Movement Abdomen: Normal Bowel Sounds, Soft Neurological: Normal Speech Other Physical Findings: Extremities: right foot s/p TMA - with non healing ulcer with granulation tissue , no significant drainage, covered with xerorform dressing, nonhealing ulcer at the plantar surface -not infected, no tendernes, erythema or discharge Current Medications: Current Medications Sig/Archana Start time Last Medication Dose Route Stop Time Status Admin Acetaminophen 1,000 MG Q6P PRN 03/10 0045 AC IV Alprazolam 1 MG AT BEDTIME 03/10 2100 AC 03/12 PO 03/17 205 215 Ampicillin Sodium/ 3,000 MG Q6 03/10 06 AC 03/13 Sulbactam Sodium IV 0503 Sodium Chloride 100 ML Ascorbic Acid 500 MG BID 03/10 2100 AC 03/13 PO 0748 Bupropion HCl 300 MG DAILY 03/10 900 AC 03/13 PO 0748 Enoxaparin Sodium 40 MG DAILY 03/10 09 AC 03/13 SC 0748 Ferrous Sulfate 325 MG DAILY 03/10 0900 AC 03/13 PO 0748 Gabapentin 100 MG AT BEDTIME 03/10 2100 AC 03/12 PO 2154 Insulin Aspart 0 TIDAC 03/10 0800 AC 03/12 SC 1847 Insulin Detemir 6 UNITS BID 03/10 0900 AC 03/13 SC 0748 Lipase/Protease/ 3 CAP WM 03/10 0800 AC 03/13 Amylase PO 0748 Morphine Sulfate 2 MG Q4P PRN 03/10 0045 AC 03/12 IV 0512 Multivitamins 1 TAB DAILY 03/10 1145 AC 03/13 PO 0748 Last 24 Hrs of Lab/Steven Results Last 24 Hrs of Labs/Mics: Laboratory Tests 03/13/18 0650: Anion Gap 18 H, Estimated GFR > 60, BUN/Creatinine Ratio 23.3, CBC w Diff NO MAN DIFF REQ, RBC 2.80 L, MCV 86.2, MCH 29.2, MCHC 33.8, RDW 16.6 H, MPV 7.4, Gran % 78.7 H, Lymphocytes % 8.5 L, Monocytes % 11.3 H, Eosinophils % 1.3, Basophils % 0.2, Absolute Granulocytes 10.6 H, Absolute Lymphocytes 1.1 L, Absolute Monocytes 1.5 H, Absolute Eosinophils 0.2, Absolute Basophils 0 Assessment/Plan Assessment: This is a 57-year-old man with a history of diabetes, with a peripheral neuropathy, status post right TMA 1 year prior to admission and excision of the fifth metatarsal stump 6 months prior to admission, with intermittent drainage from a nonhealing wound on the plantar aspect of his foot for the past year. The patient was admitted on March 09 with 2 day history of right thigh pain and generalized weakness. He was found to be febrile with a leukocytosis, with blood cultures 2 positive for Group G strep(Beta Group B Strep Bacteremia) . He was started on IV Unasyn with improvement in leukocytosis. Overnight patient spiked a low-grade temperature of 100.0 MRI does not show definitive evidence for osteomyelitis. ID services have been contacted and the chronicity of the wound and drainage in the past year history of diabetes mellitus, persistently elevated white cell count even though downtrending, there is an indication of bone biopsy as per ID recommendations to rule out osteomyelitis. Ric Beltran MD has reached out to Dr. Luong, as per his information history and to come and talk to the patient today about ongoing suspicion of osteomyelitis and need for biopsy. Going to make patient nothing by mouth in case he has to go to OR for possible biopsy. We will continue wound care and pain management. His sugars are currently controlled on current regimen. YNES has resolved #Diabetic diet/Full code/ALPs, Lovenox Problem List: 1. Osteomyelitis Pain Ratin Pain Location: R foot Pain Goal: Pain 4 or less Pain Plan: prn Tomorrow's Labs & Rationales: cbc tra Cook MD,Ivette 03/13/18 1047: Attending MD Review Statement Attending Statement Attending MD Statement: examined this patient, discuss w/resident/PA/SIDE LASTER STAPLE, agreed w/resident/PA/SIDE LASTER STAPLE, reviewed EMR data (avail), discussed with nursing, discussed with case mgmt, reviewed images Attending Assessment/Plan: Patient is extremely upset and he wants to go home. He feels that Dr. Luong has been following him for years and given the negative MRI, he feels he does not have an infection in his foot. We discussed with Dr. Beltran at length. Patient is diabetic and has had previous osteomyelitis with a transmetatarsal amputation with this ongoing wound/ulcer for more than a year now. Dr. Beltran feels given the strep bacteremia, the persistent low-grade fevers, the white count that's gone down from 22,000 but still remains in the 13,000 range and that clinically osteo is a definite concern. I reached her to Dr. Luong who is in the OR. Dr. Beltran did talk to Dr. Luong about repeating the bone biopsy but the patient really wants to talk to Dr. Luong. amputation with this ongoing wound/ulcer for more than a year now. Dr. Beltran feels given the strep bacteremia, the persistent low-grade fevers, the white count that's gone down from 22,000 but still remains in the 13,000 range and that clinically osteo is a definite concern. I reached her to Dr. Luong who is in the OR. Dr. Beltran did talk to Dr. Luong about repeating the bone biopsy but the patient really wants to talk to Dr. Luong. is in the OR. Dr. Beltran did talk to Dr. Luong about repeating the bone biopsy but the patient really wants to talk to Dr. Luong.
--- NOTE | 2018-03-13 11:34 | PN- Infect Dx ---
Subjective Subjective: T-max 100. He feels overall improved with no complaints of pain at this time. Objective Last 24 Hrs of Vital Signs/I&O Vital Signs Date Time Temp Pulse Resp B/P B/P Pulse O2 O2 Flow FiO2 Mean Ox Delivery Rate 03/13 0655 98.7 90 22 128/68 98 Room Air 03/12 2203 100.0 89 24 134/78 99 06/ 1445 99.1 91 18 130/62 99 Room Air Intake & Output 03/13 1600 03/13 0800 03/13 0000 Intake Total 320 370 Output Total Balance 320 370 Intake, IV 220 220 Intake, Oral 100 150 Patient 215 lb Weight Physical Exam Other Physical Findings: He appears comfortable in no acute distress Extremities brawny discoloration of the right lower extremity, with 1-2+ edema, warmer to touch than yesterday, with no erythema; right foot dressing intact Results Last 24 Hours of Lab Results: Laboratory Tests 03/13 0650 Chemistry Sodium (137 - 145 mmol/L) 142 Potassium (3.5 - 5.1 mmol/L) 3.6 Chloride (98 - 107 mmol/L) 102 Carbon Dioxide (22 - 30 mmol/L) 21 L Anion Gap (5 - 16) 18 H BUN (9 - 20 mg/dL) 21 H Creatinine (0.7 - 1.2 mg/dL) 0.9 Estimated GFR (>60 ml/min) > 60 BUN/Creatinine Ratio (7 - 25 %) 23.3 Hematology CBC w Diff NO MAN DIFF REQ WBC (4.8 - 10.8 /CUMM) 13.5 H RBC (4.70 - 6.10 /CUMM) 2.80 L Hgb (14.0 - 18.0 G/DL) 8.2 L Hct (42 - 52 %) 24.1 L MCV (80.0 - 94.0 FL) 86.2 MCH (27.0 - 31.0 PG) 29.2 MCHC (33.0 - 37.0 G/DL) 33.8 RDW (11.5 - 14.5 %) 16.6 H Plt Count (130 - 400 /CUMM) 356 MPV (7.4 - 10.4 FL) 7.4 Gran % (42.2 - 75.2 %) 78.7 H Lymphocytes % (20.5 - 51.1 %) 8.5 L Monocytes % (1.7 - 9.3 %) 11.3 H Eosinophils % (0 - 5 %) 1.3 Basophils % (0.0 - 2.0 %) 0.2 Absolute Granulocytes (1.4 - 6.5 /CUMM) 10.6 H Absolute Lymphocytes (1.2 - 3.4 /CUMM) 1.1 L Absolute Monocytes (0.10 - 0.60 /CUMM) 1.5 H Absolute Eosinophils (0.0 - 0.7 /CUMM) 0.2 Absolute Basophils (0.0 - 0.2 /CUMM) 0 Last 24 Hours of Steven Results: No new cultures Assessment/Plan ID Impression: Overall improved, though still with a low-grade fever and a mild leukocytosis, unchanged from yesterday, on Unasyn Day 4 of treatment for Group G strep sepsis, presumably secondary to a right leg cellulitis secondary to the nonhealing plantar ulcer on the right foot. Though the MRI was negative for any definite osteomyelitis I am still concerned about the possibility of osteomyelitis given the history of a nonhealing ulcer with intermittent drainage for the past year. This has been discussed with Podiatry, who will consider a bone biopsy, and the patient. Suggestion: 1. Await Podiatry follow-up regarding possible bone biopsy 2. Vascular surgery evaluation 3. Continue Unasyn
[2018-03-13 14:27] VITALS: BP 122/60
[2018-03-13 20:15] VITALS: BP 138/56
[2018-03-13 22:06] VITALS: BP 130/68
[2018-03-14 06:46] VITALS: BP 120/60
[2018-03-14 08:04] LABS: ABSOLUTE BASOPHIL COUNT 0 /CUMM (0.0-0.2); ABSOLUTE EOSINOPHIL COUNT 0.3 /CUMM (0.0-0.7); ABSOLUTE GRANULOCYTE CT 10.1 /CUMM (1.4-6.5); ABSOLUTE LYMPH COUNT 1.4 /CUMM (1.2-3.4); ABSOLUTE MONOCYTE COUNT 1.6 /CUMM (0.10-0.60); BASOPHIL % 0.2 % (0.0-2.0); EOSINOPHIL % 2.3 % (0-5); HEMATOCRIT 24.4 % (42-52); MEAN CORPUSCULAR HGB 29.4 PG (27.0-31.0); MEAN CORPUSCULAR HGB CONC 33.9 G/DL (33.0-37.0); MEAN CORPUSCULAR VOLUME 86.9 FL (80.0-94.0); MEAN PLATELET VOLUME 7.2 FL (7.4-10.4); PLATELET COUNT 421 /CUMM (130-400); RBC DISTRIBUTION WIDTH 16.1 % (11.5-14.5); RED BLOOD CELL CT 2.81 /CUMM (4.70-6.10); WHITE BLOOD CELL COUNT 13.5 /CUMM (4.8-10.8)
--- NOTE | 2018-03-14 08:53 | PN- Housestaff ---
Alexis PENALOZA,Ceci 03/14/18 0846: Subjective Follow-up For: Suspected osteomyelitis Subjective: No overnight events the patient remains afebrile. N.p.o. for biopsy today. Frustrated and upset because a prolonged hospital stay. Review of Systems Constitutional: Reports: see HPI. Objective Last 24 Hrs of Vital Signs/I&O Vital Signs Date Time Temp Pulse Resp B/P B/P Pulse O2 O2 Flow FiO2 Mean Ox Delivery Rate 03/14 646 97.9 85 22 120/60 99 Room Air 03/14 0000 Room Air Room Air 03/13 2206 98.8 86 22 130/68 100 03/13 2015 99.4 87 18 138/56 99 Room Air 03/13 1427 98.7 90 18 122/60 99 Room Air Intake & Output 03/14 1600 03/14 0800 03/14 0000 Intake Total 420 200 Output Total Balance 420 200 Intake, IV 220 Intake, Oral 200 200 Patient 208 lb Weight Physical Exam General Appearance: Alert, Oriented X3, Cooperative Other Physical Findings: Cardiovascular: Normal S1, Normal S2 Lungs: Clear to Auscultation, Normal Air Movement Abdomen: Normal Bowel Sounds, Soft Neurological: Normal Speech Other Physical Findings: Extremities: right foot s/p TMA - with non healing ulcer with granulation tissue , no significant drainage, covered with xerorform dressing, nonhealing ulcer at the plantar surface -not infected, no tendernes, erythema or discharge Current Medications: Current Medications Sig/Archana Start time Last Medication Dose Route Stop Time Status Admin Acetaminophen 1,000 MG Q6P PRN 03/10 0045 AC IV Alprazolam 1 MG AT BEDTIME 03/10 2100 AC 03/13 PO 03/17 Ampicillin Sodium/ 3,000 MG Q6 03/10 600 AC 03/14 Sulbactam Sodium IV 0513 Sodium Chloride 100 ML Ascorbic Acid 500 MG BID 03/10 2100 AC 03/13 PO 215 Bupropion HCl 300 MG DAILY 03/10 900 AC 03/14 PO 075 Dextrose/Sodium 1,000 ML Q20H 03/14 600 AC 03/14 Chloride IV 03/15 0159 0615 Enoxaparin Sodium 40 MG DAILY 03/10 900 AC 03/14 SC 0752 Ferrous Sulfate 325 MG DAILY 03/10 900 AC 03/13 PO 0748 Gabapentin 100 MG AT BEDTIME 03/10 2100 AC 03/13 PO 1707 Insulin Aspart 0 TIDAC 03/10 0800 DC 03/13 SC 03/13 2300 1707 Insulin Detemir 3 UNITS 0800 03/14 0800 DC 03/14 SC 03/14 0801 0752 Insulin Detemir 6 UNITS BID 03/10 0900 DC 03/13 SC 03/13 2200 2158 Insulin Human Regular 4 UNITS .STK-MED ONE 03/14 0008 DC IV 03/14 0009 Insulin Human Regular 0 Q6 03/13 2359 AC 03/14 SC 0626 Lipase/Protease/ 3 CAP WM 03/10 0800 AC 03/13 Amylase PO 1707 Morphine Sulfate 2 MG Q4P PRN 03/10 0045 AC 03/12 IV 0512 Multivitamins 1 TAB DAILY 03/10 1145 AC 03/13 PO 0748 Last 24 Hrs of Lab/Steven Results Last 24 Hrs of Labs/Mics: Laboratory Tests 03/14/18 0625: Anion Gap 9, Estimated GFR > 60, BUN/Creatinine Ratio 20.0, CBC w Diff NO MAN DIFF REQ, RBC 2.81 L, MCV 86.9, MCH 29.4, MCHC 33.9, RDW 16.1 H, MPV 7.2 L, Gran % 75.0, Lymphocytes % 10.6 L, Monocytes % 11.9 H, Eosinophils % 2.3, Basophils % 0.2, Absolute Granulocytes 10.1 H, Absolute Lymphocytes 1.4, Absolute Monocytes 1.6 H, Absolute Eosinophils 0.3, Absolute Basophils 0 Assessment/Plan Assessment: This is a 57-year-old man with a history of diabetes, with a peripheral neuropathy, status post right TMA 1 year prior to admission and excision of the fifth metatarsal stump 6 months prior to admission, with intermittent drainage from a nonhealing wound on the plantar aspect of his foot for the past year. The patient was admitted on March 09 with 2 day history of right thigh pain and generalized weakness. He was found to be febrile with a leukocytosis, with blood cultures 2 positive for Group G strep(Beta Group B Strep Bacteremia) . He was started on IV Unasyn with improvement in leukocytosis. Overnight patient spiked a low-grade temperature of 100.0 MRI does not show definitive evidence for osteomyelitis. ID services have been contacted and the chronicity of the wound and drainage in the past year history of diabetes mellitus, persistently elevated white cell count even though downtrending, there is an indication of bone biopsy as per ID recommendations to rule out osteomyelitis. -Patient is currently n.p.o. scheduled for bone biopsy around [address] Luong -When he comes back we will change the insulin scale and advance his diet and start him on his regular Levemir scale. We will continue wound care and pain management. His sugars are currently controlled on current regimen. YNES has resolved #NPO for now/Full code/ALPs, Lovenox Problem List: 1. Osteomyelitis Pain Ratin Pain Location: R foot Pain Goal: Pain 4 or less Pain Plan: prn Tomorrow's Labs & Rationales: cbc Shawn Alatorre MD 03/14/18 1221: Attending MD Review Statement Attending Statement Attending MD Statement: examined this patient, discuss w/resident/PA/PAYMENT COLLECTOR, agreed w/resident/PA/PAYMENT COLLECTOR, reviewed EMR data (avail) Attending Assessment/Plan: 57-year-old male past medical history of diabetes, on insulin with previous osteomyelitis and TMA is here with sepsis, he has a cellulitis with likely osteomyelitis in the right foot area. He is growing gram-positive cocci in chains in his blood cultures, has a white count of 22,000 and Ynes with an anion gap acidosis. He made the ED visit on March 09 but signed out AMA and returned yesterday because of ongoing complaints. MRI inconclusive, going for bone biopsy today, podiatry following, ID consulted, continue Unasyn, follow cultures , continue home meds, DVT PPx.
--- NOTE | 2018-03-14 13:46 | Operative Report ---
Operative/Inv Procedure Report Surgery Date: 03/14/18 Name of Procedure: 1 open incision and drainage deep to the D fashion with exposure of the extensor and flexor tendon and tendon sheath multiple sites right foot 2 bone biopsy right foot 3 intraoperative administration of ankle block anesthesia 4 excisional debridement Pre-Operative Diagnosis: 1 open, necrotic nonhealing wound right foot 2 suspected osteomyelitis right foot 3 diabetic peripheral neuropathy Post-Operative Diagnosis: The same Estimated Blood Loss: less than 50ml Surgeon/Compliance Coordinator: ANNMARIE JASMINE DPM Anesthesia: moderate sedation, block Operative/Procedure Note Note: After obtaining informed consent the patient was brought to the operating room and placed on the operating table in the supine position. The patient isn't securely fastened to the operating table utilizing safety belt. After administration of IV sedation, 10 mL of 0.5% Marcaine plain was infiltrated about the patient's right ankle. The right foot and ankle were scrubbed, prepped and draped in usual aseptic manner. Attention directed the right foot, where a fibrotic was identified at the distal plantar lateral stump of the right foot. A separate incision was made along the junction the dorsal plantar skin dorsal to the wound. The dissection was then carried down deep to the deep fascia with exposure of the extensor and flexor tendon and tendon sheath multiple sites, both proximally and distally. Any necrotic or nonviable tissue identified and excised from the wound bed. The dissection then continued down to the periosteum which was not noted to communicate with the plantar ulcer and this was incised and reflected. A sagittal bone saw was utilized to resect 2 bone specimens from the distal stump of the fourth metatarsal and this was sent for both microbiologic and pathologic inspection. The open wound was then irrigated with 3 L of normal sterile saline infused with 50,000 units of bacitracin. Following this, the foot was redraped and the surgeon's top gloves were changed clean gloves. Any bleeding vessels identified were cauterized or ligated as encountered. The wound edges were then closed with 2-0 nylon stitches. The incision and plantar ulcer were dressed with Xeroform, 4 x 4's, Kerlix and an Jemal wrap. The patient was noted to tolerate both procedure and anesthesia well and the patient was transported from the operating room to recovery with vital signs stable.
[2018-03-14 14:52] VITALS: BP 130/75
--- NOTE | 2018-03-14 17:27 | Cons- Vascular Surgery ---
General Information and HPI Consulting Request Date of Consult: 03/14/18 Requested By: Shawn Alatorre MD History of Present Illness: 57-year-old man with insulin-dependent diabetes and other medical issues as well as and chronic foot infection presented with osteomyelitis of the right foot. He underwent foot surgery by Dr. Luong. Vascular surgery was consulted regarding adequacy of blood flow through the right foot. Allergies/Medications Allergies: Coded Allergies: No Known Allergies (02/23/17) Home Med List: Alprazolam 1 MG TABLET 1 TAB PO QHS PRN ANXIETY (Reported) Ascorbic Acid (Vitamin C) 500 MG CAPSULE.ER 2 TAB PO DAILY VITAMIN SUPPORT ( Reported) Bupropion HCl (Bupropion XL) 300 MG TAB.ER.24H 1 TAB PO DAILY MENTAL HEALTH ( Reported) Dextroamphetamine/Amphetamine (Dextroamp-Amphetamine 5 MG Tab) 5 MG TABLET 1 TAB PO DAILY 1400 ANXIETY (Reported) Ergocalciferol (Vitamin D2) (Vitamin D2) 50,000 UNIT CAPSULE 1 CAP PO QW SUPPLEMENT (Reported) Ferrous Sulfate (Slow Fe) 142 MG (45 MG IRON) TABLET.ER 1 TAB PO DAILY SUPPLEMENT Gabapentin 100 MG CAPSULE 1 TAB PO AT BEDTIME MOOD STABILITY (Reported) Insulin Aspart (Novolog) 100 UNIT/ML VIAL 0 UNITS SC TIDAC/HS DIABETES MELLITUS BEFORE MEALS Blood Insulin Sugar Units <80 0 81-150 0 151-200 2 201-250 4 251-300 6 301-350 8 351-400 10 >400 GIVE 12 UNITS AND Call Doctor AT BEDTIME Blood Insulin Sugar Units <80 0 81-100 0 101-200 0 201-250 0 251-300 1 301-350 2 351-400 3 >400 GIVE 4 UNITS AND Call Doctor Insulin Degludec (Tresiba Flextouch U-200) 200 UNIT/ML (3 ML) INSULN.PEN 27 UNITS SC AT BEDTIME DIABETES (Reported) Lancets 1 EACH EACH 1 UNIT SC TID/HS TO CHECK BLOOD SUGAR Lipase/Protease/Amylase (gAuila Bah 36,000 Units Capsule) 36K-114K CAPSULE. 3 CAP PO TIDAC PANCREATIC ENZYMES (Reported) Syringe & Needle,Insulin,1 Ml (Insulin Syringe) 29 GAUGE X 7/16" DISP.SYRIN 1 UNIT SC TID/HS TO GIVE INSULIN [VITAMIN B12] 500 MCG CAP 1 TAB PO DAILY VITAMIN SUPPORT (Reported) [ZINC PERES] 50 MG CAP 4 TAB PO DAILY VITAMIN SUPPORT (Reported) Past History Medical History Blood Transfusion Hx: No Neurological: peripheral neuropathy EENT: NONE Cardiovascular: CAD, hypertension Respiratory: NONE Gastrointestinal: pancreatitis (chronic) Hepatic: NONE Renal: NONE Musculoskeletal: NONE Psychiatric: anxiety, depression Endocrine: diabetes Blood Disorders: NONE Cancer(s): NONE 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 Home Services at Home: Nursing Primary Language: Algerian Smoking Status: Current Everyday Smoker ETOH Use: denies use Review of Systems Review of Systems: A she denies headache, dizziness, cough, palpitation, diarrhea or constipation Exam & Diagnostic Data Vital Signs and I&O Vital Signs Date Time Temp Pulse Resp B/P B/P Pulse O2 O2 Flow FiO2 Mean Ox Delivery Rate 03/14 1452 97.9 70 18 130/75 96 Room Air 03/14 0646 97.9 85 22 120/60 99 Room Air 03/14 0000 Room Air Room Air 03/136 98.8 86 22 130/68 100 03/13 2015 99.4 87 18 138/56 99 Room Air Intake & Output 03/14 1600 03/14 0800 03/14 0000 03/13 1600 03/13 0800 03/13 0000 Intake Total 700 420 200 500 320 370 Output Total 500 Balance 200 420 200 500 320 370 Intake, IV 700 220 150 220 220 Intake, Oral 200 200 350 100 150 Output, Urine 500 Patient 208 lb 215 lb Weight Physical Exam: Patient is alert and oriented 3 Right foot is dressed. There are palpable pedal pulses. Assessment/Plan Assessment/Plan 49-year-old man with multiple medical issues including diabetes and myelitis of the right foot with palpable pedal pulses. Given the exam, I don't believe any vascular intervention is necessary at this time. Thank you for asking me to be off in the care of this patient. Consult Acknowledgment - Thank you for your consult request. Attending MD Review Statement Attending Statement Attending MD Statement: examined this patient, discuss w/resident/PA/COP
[2018-03-14 22:04] VITALS: BP 138/64
[2018-03-15 06:49] VITALS: BP 120/62
--- NOTE | 2018-03-15 09:20 | PN- Housestaff ---
See Addendum Subjective Follow-up For: Suspected osteomylitis Subjective: Seen and examined. Anxious to be discharged. Bone biopsy results are not in yet. There was an extensive conversation between Dr. Hernandez infectious diseases and Dr. Jameson Luong. Patient wants to be discharged home. It was agreed that if the bone pathology comes back positive patient will require revision of his foot TMA. For now he is going to be discharged on Augmentin for 9 more days. There will be no role of PICC line and long-term antibiotics Review of Systems Constitutional: Reports: no symptoms, chills. Objective Last 24 Hrs of Vital Signs/I&O Vital Signs Date Time Temp Pulse Resp B/P B/P Pulse O2 O2 Flow FiO2 Mean Ox Delivery Rate 03/15 0649 98.1 102 20 120/62 100 Room Air 03/14 2204 99.4 88 22 138/64 98 Intake & Output 03/15 1600 03/15 0800 06 0000 Intake Total 220 840 Output Total Balance 220 840 Intake, IV 140 Intake, Oral 220 700 Patient 213 lb Weight Physical Exam General Appearance: Alert, Oriented X3 Cardiovascular: Normal S1, Normal S2 Lungs: Clear to Auscultation, Normal Air Movement Abdomen: Normal Bowel Sounds, Soft Current Medications: Current Medications Sig/Archana Start time Last Medication Dose Route Stop Time Status Admin Acetaminophen 1,000 MG Q6P PRN 03/10 0045 DCD IV Alprazolam 1 MG AT BEDTIME 03/10 2100 DCD 03/14 PO 03/17 2059 2222 Ampicillin Sodium/ 3,000 MG Q6 03/10 600 DCD 03/15 Sulbactam Sodium IV 1228 Sodium Chloride 100 ML Ascorbic Acid 500 MG BID 03/10 2100 DCD 03/15 PO 0859 Bupropion HCl 300 MG DAILY 03/10 900 DCD 03/15 PO 0859 Enoxaparin Sodium 40 MG DAILY 03/10 900 DCD 03/15 SC 0859 Ferrous Sulfate 325 MG DAILY 03/10 900 DCD 03/15 PO 0859 Gabapentin 100 MG AT BEDTIME 03/10 2100 DCD 03/14 PO 2222 Insulin Aspart 0 TIDAC 03/14 1700 DCD 03/15 SC 1315 Insulin Detemir 6 UNITS BID 03/14 2100 DCD 03/15 SC 0859 Lipase/Protease/ 3 CAP WM 03/10 0800 DCD 03/15 Amylase PO 1315 Morphine Sulfate 2 MG Q4P PRN 03/10 0045 DCD 03/12 IV 0512 Multivitamins 1 TAB DAILY 03/10 1145 DCD 03/15 PO 0859 Last 24 Hrs of Lab/Steven Results Last 24 Hrs of Labs/Mics: Laboratory Tests 03/15/18 0945: CBC w Diff NO MAN DIFF REQ, RBC 2.78 L, MCV 86.8, MCH 28.9, MCHC 33.3, RDW 16.5 H, MPV 7.4, Gran % 79.6 H, Lymphocytes % 10.0 L, Monocytes % 8.1, Eosinophils % 2.1, Basophils % 0.2, Absolute Granulocytes 9.5 H, Absolute Lymphocytes 1.2, Absolute Monocytes 1.0 H, Absolute Eosinophils 0.3, Absolute Basophils 0 Assessment/Plan Assessment: This is a 57-year-old man with a history of diabetes, with a peripheral neuropathy, status post right TMA 1 year prior to admission and excision of the fifth metatarsal stump 6 months prior to admission, with intermittent drainage from a nonhealing wound on the plantar aspect of his foot for the past year. The patient was admitted on March 09 with 2 day history of right thigh pain and generalized weakness. He was found to be febrile with a leukocytosis, with blood cultures 2 positive for Group G strep(Beta Group B Strep Bacteremia) . He was started on IV Unasyn with improvement in leukocytosis. Overnight patient spiked a low-grade temperature of 100.0 MRI does not show definitive evidence for osteomyelitis. ID services have been contacted and the chronicity of the wound and drainage in the past year history of diabetes mellitus, persistently elevated white cell count even though downtrending, there is an indication of bone biopsy as per ID recommendations to rule out osteomyelitis. Patient underwent bone biopsy yesterday. If bone pathology comes back positive he will be going for revision of TMA, which will be followed up by Jameson Luong DPM. Patient will not be going for a PICC line or IV antibiotics. He is going to be discharged on Augmentin for 9 more days after consulting ID services. Patient does not want to wait another day for biopsy results. Hence will follow up with Dr. Lunog as an outpatient. He is being discharged with extensive counseling on follow-up. Problem List: 1. Osteomyelitis Pain Ratin Pain Location: foot Pain Goal: Pain 4 or less Pain Plan: prn Tomorrow's Labs & Rationales: none
[2018-03-15 11:17] LABS: ABSOLUTE BASOPHIL COUNT 0 /CUMM (0.0-0.2); ABSOLUTE EOSINOPHIL COUNT 0.3 /CUMM (0.0-0.7); ABSOLUTE GRANULOCYTE CT 9.5 /CUMM (1.4-6.5); ABSOLUTE LYMPH COUNT 1.2 /CUMM (1.2-3.4); BASOPHIL % 0.2 % (0.0-2.0); EOSINOPHIL % 2.1 % (0-5); GRANULOCYTE % 79.6 % (42.2-75.2); HEMATOCRIT 24.1 % (42-52); MEAN CORPUSCULAR HGB 28.9 PG (27.0-31.0); MEAN CORPUSCULAR HGB CONC 33.3 G/DL (33.0-37.0); MEAN CORPUSCULAR VOLUME 86.8 FL (80.0-94.0); MEAN PLATELET VOLUME 7.4 FL (7.4-10.4); PLATELET COUNT 468 /CUMM (130-400); RBC DISTRIBUTION WIDTH 16.5 % (11.5-14.5); RED BLOOD CELL CT 2.78 /CUMM (4.70-6.10); WHITE BLOOD CELL COUNT 11.9 /CUMM (4.8-10.8)
--- NOTE | 2018-03-15 11:49 | PN- Infect Dx ---
Subjective Subjective: Afebrile without complaints. He is anxious for discharge. Objective Last 24 Hrs of Vital Signs/I&O Vital Signs Date Time Temp Pulse Resp B/P B/P Pulse O2 O2 Flow FiO2 Mean Ox Delivery Rate 03/15 0649 98.1 102 20 120/62 100 Room Air 03/14 2204 99.4 88 22 138/64 98 03/14 1452 97.9 70 18 130/75 96 Room Air Intake & Output 03/15 1600 03/15 0800 03/15 0000 Intake Total 220 840 Output Total Balance 220 840 Intake, IV 140 Intake, Oral 220 700 Patient 213 lb Weight Physical Exam Other Physical Findings: He appears comfortable in no acute distress Extremities right foot dressing intact Results Last 24 Hours of Lab Results: Laboratory Tests 03/15 0945 Hematology CBC w Diff NO MAN DIFF REQ WBC (4.8 - 10.8 /CUMM) 11.9 H RBC (4.70 - 6.10 /CUMM) 2.78 L Hgb (14.0 - 18.0 G/DL) 8.0 L Hct (42 - 52 %) 24.1 L MCV (80.0 - 94.0 FL) 86.8 MCH (27.0 - 31.0 PG) 28.9 MCHC (33.0 - 37.0 G/DL) 33.3 RDW (11.5 - 14.5 %) 16.5 H Plt Count (130 - 400 /CUMM) 468 H MPV (7.4 - 10.4 FL) 7.4 Gran % (42.2 - 75.2 %) 79.6 H Lymphocytes % (20.5 - 51.1 %) 10.0 L Monocytes % (1.7 - 9.3 %) 8.1 Eosinophils % (0 - 5 %) 2.1 Basophils % (0.0 - 2.0 %) 0.2 Absolute Granulocytes (1.4 - 6.5 /CUMM) 9.5 H Absolute Lymphocytes (1.2 - 3.4 /CUMM) 1.2 Absolute Monocytes (0.10 - 0.60 /CUMM) 1.0 H Absolute Eosinophils (0.0 - 0.7 /CUMM) 0.3 Absolute Basophils (0.0 - 0.2 /CUMM) 0 Last 24 Hours of Steven Results: OR culture March 14 labeled right foot bone pending Assessment/Plan ID Impression: Stable, with temperatures normal and white blood cell count decreasing, on Unasyn Day 5 of treatment for Group G strep sepsis secondary to a right leg cellulitis and a nonhealing plantar ulcer of the right foot/possible osteomyelitis, status post bone biopsy and excisional debridement of the TMA site yesterday, with the bone culture and pathology pending. Have discussed with Podiatry, who plans to revise the right TMA back to a Lisfranc if his pathology reveals osteomyelitis, but feels that can be done more electively and that this might avoid the need for a prolonged course of IV antibiotics. He can , therefore, be discharged on oral antibiotics pending results of the bone biopsy and decision regarding further surgery. Suggestion: 1. Follow-up bone culture and pathology 2. Further management/debridement of the right foot per Podiatry based on above 3. Discontinue Unasyn and begin Augmentin 875 mg p.o. every 12 hours for 9 more days
[2018-03-15] MEDS ORDERED: AUGMENTIN 875-1 EACH PO (12:03)
== END 2018-03-15 13:36 | disposition home health service (06) | DRG 854 ==
LOC: ERH 20:07 → 1NO 23:48 → ERHI 23:48 → ENRESERV 03-10 02:31 → 1NO 03-10 03:28 → ENTRNSPT 03-14 14:31 → EDTRNSPT 03-14 14:40 → EDTRNSPTSTS 03-14 14:40 → CMPTRNSPT 03-14 15:14 → 1NO 03-15 13:36
PROVIDERS: Internal Medicine; Internal Medicine Hematology & Oncology; Student in an Organized Health Care Education/Training Program
PROC: 0QBN0ZX Excision of Right Metatarsal, Open Approach, Diagnostic (ICD-10-PCS; principal; 2018-03-14)
DX: A40.8 Other streptococcal sepsis (principal); M86.671 Other chronic osteomyelitis, right ankle and foot; K86.1 Other chronic pancreatitis; E87.2 Acidosis; E87.1 Hypo-osmolality and hyponatremia; L03.115 Cellulitis of right lower limb; N17.9 Acute kidney failure, unspecified; E11.42 Type 2 diabetes mellitus with diabetic polyneuropathy; E11.621 Type 2 diabetes mellitus with foot ulcer; E11.69 Type 2 diabetes mellitus with other specified complication; E11.65 Type 2 diabetes mellitus with hyperglycemia; I25.10 Atherosclerotic heart disease of native coronary artery without angina pectoris; I10 Essential (primary) hypertension; F41.9 Anxiety disorder, unspecified; F32.9 Major depressive disorder, single episode, unspecified; D64.9 Anemia, unspecified; Z79.4 Long term (current) use of insulin
CPT/HCPCS: 1NSP; 75657; 87070; 87075; ERO; 36415; 36592; 82436; 87040; 87071; 96360; J0131; J1650; J1815; J2001; J3490; J7042; J7120

== ENCOUNTER 2018-03-27 02:04 | Inpatient (IN) | payer OTHER ==
[~2018-03-27] VITALS: Ht 208.3 cm; Wt 86.2 kg
[~2018-03-27 02:04] MED LIST changes: +AUGMENTIN 875-1 EACH PO; +GABAPENTIN100 M2 PO; +TRESIBA FL200 UNIT/1 SC; +VITAMIN B12 PO; +VITAMIN C500 M7 PO; +[UNRECOGNIZED DRUG - OTHER] PO
--- NOTE | 2018-03-27 14:31 | Operative Report ---
Operative/Inv Procedure Report Surgery Date: 03/27/18 Name of Procedure: 1 open incision and drainage deep to the D fashion with exposure of the extensor and flexor tendon and tendon sheath multiple sites right foot 2 revision of TMA to the Lisfranc's amputation 3 closure of open surgical wound 4 intraoperative administration of ankle block anesthesia 5 excisional debridement Pre-Operative Diagnosis: 1 open necrotic wound right foot 2 osteomyelitis right foot 3 diabetic peripheral neuropathy Post-Operative Diagnosis: The same Estimated Blood Loss: less than 50ml Surgeon/Strategic Sourcing Specialist: Jameson Luong DPM Anesthesia: moderate sedation, block Operative/Procedure Note Note: After obtaining informed consent the patient was brought to the operating room and placed on the operating table in the supine position. The patient was then securely fastened to the operating table utilizing safety belt. After administration of IV sedation, 10 mL of 0.5% Marcaine plain was infiltrated about the patient's right ankle. The right foot and ankle were scrubbed, prepped and draped in usual aseptic manner. Attention directed the right foot, where a large full-thickness necrotic was identified. A 15 blade visualized sharply revised skin margins. The incision was then extended medially to encompass the medial rays at the level of the Lisfranc's joint. A full- thickness flap was then developed dorsally. The dissection was then carried down deep to the deep fascia with exposure of the extensor and flexor tendon and tendon sheath multiple sites, both proximally and distally. All necrotic, nonviable infected tissue sharply evacuated from the wound bed. The proximal osseous segments were then disarticulated and Lisfranc's joints and passed from the operative field. Specimen was sent for both microbiologic and pathologic inspection. Nipple was then irrigated with 3 L of normal sterile saline fissure 50,000 units of bacitracin. Following this, the foot was redraped and the surgeon's top was changed clean gloves. Any bleeding vessels identified were cauterized a lace encountered. The plantar flap was then rotated superiorly and closed in layered layered fashion at its deep side with 2-0 Vicryl. Subtenons tissues reapproximated 3-0 Vicryl. The skin edges reapproximated 2-0 nylon. Incision was dressed with Xeroform, 4 x 4's, Kerlix and an Jemal wrap. She was noted tolerate both procedure and anesthesia well and the patient was transported from the operating room to recovery with vital signs stable and fascia status intact to the dorsal and plantar flaps.
[2018-03-27 16:20] VITALS: BP 112/60
--- NOTE | 2018-03-27 17:31 | Cons- Medical ---
Shanell Interiano MD 03/27/18 1729: General Information and HPI Consulting Request Date of Consult: 03/27/18 Requested By: Jameson Luong DPM Reason for Consult: Medical management s/p surgery of foot Source of Information: patient, old records Exam Limitations: no limitations History of Present Illness: Patient is a 57 YO M with PMH significant for Diabetes, peripheral neuropathy presented to [facility] for right foot debridement. Patient had chronic right foot wound underwent TMA a yr ago followed by multiple debridements this year. He was recently discharged after debridement on while still awaiting pathology results. Pathology report on 03/16/18 turned out to be acute osteomyelitis, hence patient was asked to come back for repeat debridement and closure. He underwent procedure today. Currently denies any fever, chills. He awaits placement of a PICC tomorrow. Allergies/Medications Allergies: Coded Allergies: No Known Allergies (03/26/18) Home Med List: Alprazolam 1 MG TABLET 1 TAB PO QHS PRN ANXIETY (Reported) Amoxicillin/Potassium Clav (Augmentin 875-125 Tablet) 875 MG-125 MG TABLET 1 TAB PO BID foot infection Ascorbic Acid (Vitamin C) 500 MG CAPSULE.ER 2 TAB PO DAILY VITAMIN SUPPORT ( Reported) Bupropion HCl (Bupropion XL) 300 MG TAB.ER.24H 1 TAB PO DAILY MENTAL HEALTH ( Reported) Dextroamphetamine/Amphetamine (Dextroamp-Amphetamine 5 MG Tab) 5 MG TABLET 1 TAB PO DAILY 1400 ANXIETY (Reported) Ergocalciferol (Vitamin D2) (Vitamin D2) 50,000 UNIT CAPSULE 1 CAP PO QW SUPPLEMENT (Reported) Ferrous Sulfate (Slow Fe) 142 MG (45 MG IRON) TABLET.ER 1 TAB PO DAILY SUPPLEMENT Gabapentin 100 MG CAPSULE 1 TAB PO AT BEDTIME MOOD STABILITY (Reported) Insulin Aspart (Novolog) 100 UNIT/ML VIAL 0 UNITS SC TIDAC/HS DIABETES MELLITUS BEFORE MEALS Blood Insulin Sugar Units <80 0 81-150 0 151-200 2 201-250 4 251-300 6 301-350 8 351-400 10 >400 GIVE 12 UNITS AND Call Doctor AT BEDTIME Blood Insulin Sugar Units <80 0 81-100 0 101-200 0 201-250 0 251-300 1 301-350 2 351-400 3 >400 GIVE 4 UNITS AND Call Doctor Insulin Degludec (Tresiba Flextouch U-200) 200 UNIT/ML (3 ML) INSULN.PEN 27 UNITS SC AT BEDTIME DIABETES (Reported) Lancets 1 EACH EACH 1 UNIT SC TID/HS TO CHECK BLOOD SUGAR Lipase/Protease/Amylase ([place] Bah 36,000 Units Capsule) 36K-114K CAPSULE. 3 CAP PO TIDAC PANCREATIC ENZYMES (Reported) Syringe & Needle,Insulin,1 Ml (Insulin Syringe) 29 GAUGE X 7/16" DISP.SYRIN 1 UNIT SC TID/HS TO GIVE INSULIN [VITAMIN B12] 500 MCG CAP 1 TAB PO DAILY VITAMIN SUPPORT (Reported) [ZINC PERES] 50 MG CAP 4 TAB PO DAILY VITAMIN SUPPORT (Reported) Review of Systems Review of Systems Constitutional: Reports: no symptoms. EENTM: Reports: no symptoms. 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: NONE Surgical History Surgical History: right lower extremity surgery with hardware in place following a skiing accident Family History Relations & Conditions If Any: MOTHER Relation not specified for: FH: diabetes mellitus Psychosocial History Services at Home: Nursing Primary Language: Korean Exam & Diagnostic Data Last 24 Hrs of Vital Signs/I&O Vital Signs Date Time Temp Pulse Resp B/P B/P Pulse O2 O2 Flow FiO2 Mean Ox Delivery Rate 03/27 1620 Room Air 03/27 1620 97.9 82 20 112/60 100 Room Air Physical Exam General Appearance: well developed/nourished, alert, awake, comfortable, moderate distress Head: atraumatic, normal appearance Eyes: Bilateral: normal appearance, PERRL, EOMI. Ears, Nose, Throat: normal pharynx Respiratory: normal breath sounds, chest non-tender, no respiratory distress Cardiovascular: regular rate/rhythm, edema, normal peripheral pulses Gastrointestinal: normal bowel sounds, soft, non-tender Back: normal inspection, normal range of motion Extremities: normal inspection Neurologic/Psych: awake, alert, oriented x 3, normal mood/affect Cranial Nerves: normal hearing, normal speech, PERRL Skin: intact, normal color, dressing present on the right foot Last 24 Hrs of Labs/Steven: Vital Signs Date Time Temp Pulse Resp B/P B/P Pulse O2 O2 Flow FiO2 Mean Ox Delivery Rate 03/27 1620 Room Air 03/27 1620 97.9 82 20 112/60 100 Room Air Assessment/Plan Assessment/Plan Patient is a 57 YO M with PMH of IDDM, Depression/anxiety, chronic nonhealing right foot wound requiring multiple debridement presented for repeat debridement of his foot today. His lab work is singificant for white coutn of 12 with bandemia, normocytic anemia. Problem list 1. Right foot osteomyelitis s/p debridement 2. IDDM 3. Mental health Plan Place in general medicine floor Right foot osteomyelitis Wound care per . continue IV unasyn for now. PICC line tomorrow. IDDM ISS, levemir 6 units BID, Accuchecks Mental health Continue xanax, bupropion DVT prophylaxis SC heparin Code status Full code Consult Acknowledgment - Thank you for your consult request. Celi PENALOZA,[facility] 03/27/189: Assessment/Plan Consult Acknowledgment - Thank you for your consult request. Attending MD Review Statement Attending Statement Attending MD Statement: examined this patient, discuss w/resident/PA/PORTFOLIO ADMINISTRATOR, agreed w/resident/PA/PORTFOLIO ADMINISTRATOR, reviewed EMR data (avail) Attending Assessment/Plan: 57M PMH poorly controlled T2DM with peripheral neuropathy, history of right TMA with revision, recent Group G strep sepsis secondary to cellulitis of the right foot with non-healing right foot ulcer concerning for osteomyelitis, with negative foot MRI on 03/12 but high suspicion, discharged home with outpatient follow up, underwent right lower extremity revision, incision and drainage today , medical consult called for medical co-management of chronic conditions. Doing well in PACU, pain controlled, afebrile, stable vitals. Agree with resident assessment and plan, see resident plan for full details. Recommendations - PICC tomorrow - Start Unasyn - Continue home Levemir - Insulin sliding scale - Follow cultures - Continue home medications - DVT PPx
[2018-03-27 21:48] VITALS: BP 150/82
[2018-03-28 06:51] VITALS: BP 128/74
--- NOTE | 2018-03-28 08:30 | PN- Medicine Consult ---
Jayodn PENALOZA,Shanell 03/28/18 0829: Assessment/PlanMedical Consult Assessment/Plan Assessment: Patient is a 57 YO M with PMH of IDDM, Depression/anxiety, chronic nonhealing right foot wound requiring multiple debridement presented for repeat debridement of his foot today. His lab work is singificant for white coutn of 12 with bandemia, normocytic anemia. Medicine consulted for managing comorbidities. Problem list 1. Right foot osteomyelitis s/p debridement 2. IDDM 3. Mental health Plan Placed in general medicine floor Right foot osteomyelitis Wound care per . continue IV unasyn for now. PICC line today. stable for discharge IDDM ISS, levemir 6 units BID, Accuchecks Mental health Continue xanax, bupropion DVT prophylaxis SC heparin Code status Full code Plan: as above Problem List: 1. Osteomyelitis 2. Status post excisional debridement Subjective Subjective: seen and examined stable. At baseline. Review of Systems Constitutional: Reports: see HPI. Objective Last 24 Hrs of Vital Signs/I&O Vital Signs Date Time Temp Pulse Resp B/P B/P Pulse O2 O2 Flow FiO2 Mean Ox Delivery Rate 03/28 0651 98.3 89 18 128/74 99 03/27 2148 98.2 85 16 150/82 100 Room Air 03/27 1620 Room Air 03/27 1620 97.9 82 20 112/60 100 Room Air Intake & Output 03/28 1600 03/28 0800 03/28 0000 Intake Total 200 Output Total Balance 200 Intake, IV 200 Patient 86.183 kg Weight Weight Bed scale Measurement Method Physical Exam General Appearance: well developed/nourished, no apparent distress, alert, awake , comfortable Head: atraumatic, normal appearance Ears, Nose, Throat: normal pharynx, normal ENT inspection Neck: normal inspection, supple, full range of motion Cardiovascular: regular rate/rhythm, normal peripheral pulses, stable heart rate Respiratory: normal breath sounds, chest non-tender, no respiratory distress Peripheral Pulses: 2+ radial (R), 2+ radial (L) Abdomen: normal bowel sounds, soft, non-tender Back: normal inspection, normal range of motion Extremities: dressing present on right foot, edema present with chronic venous stasis changes Current Medications: Current Medications Sig/Archana Start time Last Medication Dose Route Stop Time Status Admin Alprazolam 1 MG AT BEDTIME NEED.. 03/27 1745 AC PO 04/03 1744 Alprazolam 1 MG AT BEDTIME NEED.. 03/27 1545 DC PO 04/03 1544 Ampicillin Sodium/ 3,000 MG Q6 03/27 1800 AC 03/28 Sulbactam Sodium IV 1100 Sodium Chloride 100 ML Ascorbic Acid 500 MG DAILY 03/27 1735 AC 03/28 PO 0817 Bupropion HCl 300 MG DAILY 03/28 0900 AC 03/28 PO 0817 Cefazolin Sodium 2,000 MG ONCE 03/27 0000 DC IV 03/27 2359 Ferrous Sulfate 325 MG DAILY 03/28 0900 AC 03/28 PO 0817 Gabapentin 100 MG AT BEDTIME 03/27 2100 AC 03/27 PO 2103 Heparin Sodium 0 .STK-MED ONE 03/28 1437 DC (Porcine) IV Heparin Sodium 5,000 UNIT Q8 03/27 2200 AC (Porcine) SC Insulin Aspart 0 TIDAC/HS 03/27 2100 AC 03/28 SC 1251 Insulin Aspart 0 TIDAC 03/27 1700 DC 03/27 SC 1816 Insulin Detemir 6 UNITS BID 03/27 2100 AC 03/28 SC 0903 Lidocaine 0 .STK-MED ONE 03/28 1437 DC .ROUTE Lipase/Protease/ 3 CAP WM 03/28 0800 AC 03/28 Amylase PO 1101 Patient Medication 1 ED ONE ONE 03/28 1145 DC 03/28 Teaching ED 03/28 1146 1257 Results Last 24 Hrs Lab/Steven Results: none Bryan PENALOZA,Narendra 03/28/18 1540: Attending MD Review Statement Attending Sign Off Attending Cosign Statement: I have: examined this patient, reviewed al EMR data, discussd w/resident/PA/ STRUCTURAL RIGGER, discussed mgmt plan w/elin, discussed mgmt plan w/CM, discussed mgmt plan w/ pt, agreed w/resident/PA/STRUCTURAL RIGGER, amended to note. Other Findings: The patient was seen and discussed with house staff. Agree with assessment and plan as outlined. The patient is awaiting PICC insertion and then may be discharged to home.
[2018-03-28 14:15] VITALS: BP 156/76
--- NOTE | 2018-03-28 15:05 | Patient Discharge Instructions ---
Discharge Instructions General Discharge Information You were seen/treated for: DIABETIC FOOT You had these procedures: S/P DEBRIDEMENT Special Instructions: PLEASE FOLLOW UP WITH YOUR PCP IN A WEEK PLEASE FOLLOW UP WITH IN A WEEK Diet Recommended Diet: Diabetic Activity Activity Self Limited: Yes Acute Coronary Syndrome Inclusion Criteria At DC or during hospital stay patient has or had the following: ACS DIAGNOSIS No Discharge Core Measures Meds if any: Prescribed or Continued at Discharge Meds if any: NOT Prescribed or Continued at Discharge Congestive Heart Failure Inclusion Criteria At DC or during hospital stay patient has or had the following: CHF DIAGNOSIS No Discharge Core Measures Meds if any: Prescribed or Continued at Discharge Meds if any: NOT Prescribed or Continued at Discharge Cerebrovascular accident Inclusion Criteria At DC or during hospital stay patient has or had the following: CVA/TIA Diagnosis No Discharge Core Measures Meds if any: Prescribed or Continued at Discharge Meds if any: NOT Prescribed or Continued at Discharge Venous thromboembolism Inclusion Criteria VTE Diagnosis No VTE Type NONE VTE Confirmed by (Test) NONE Discharge Core Measures - Per Current guidelines, there needs to be overlap - treatment for the first 5 days of Warfarin therapy. - If discharged on Warfarin prior to 5 days of - overlap therapy, the patient will need to be - assessed for post discharge needs including - *Post discharge parental anticoagulation - *Warfarin and/or parental anticoagulation education - *Follow up date to check INR post discharge At least 5 days overlap therapy as Inpatient No Meds if any: Prescribed or Continued at Discharge Note: Overlap Therapy is Warfarin and Anticoagulant Meds if any: NOT Prescribed or Continued at Discharge
[2018-03-28] MEDS ORDERED: UNASYN 3 GM VIAL3 GM IV (15:26)
--- NOTE | 2018-03-28 16:38 | ULTRASOUND REPORT ---
CLINICAL HISTORY: This patient is a 57 years old male with a history of osteomyelitis, who presents to Interventional Radiology for placement of a single lumen PICC for central venous access. PROCEDURES: 1. Real-time ultrasound-guided access into the right brachial vein after documentation of selected vessel patency, and permanent imaging storing in the patient records. 2. Placement of a PICC. PHYSICIANS: Dr. Cathy Vega (attending). MEDICATIONS: Lidocaine 1%, 1 mL SQ. CONTRAST: None FLUOROSCOPY TIME: 1.2 minutes DAP: 930 uGym2 COMPLICATIONS: None ESTIMATED BLOOD LOSS: Scant SPECIMENS: None IMPLANT: 4 Fr Power PICC SITE MARKING: As part of the preprocedure verification policy, a site marking procedure was initiated. Due to the nature the procedure, the insertion site could not be predetermined thus invoking the policy of exemption to site laterality and marking. Insertion site marking was performed in the procedure room in conjunction with imaging confirmation. PROCEDURE NOTE: Informed consent was obtained from the patient prior to the procedure. During this process, the procedure and potential alternatives were explained along with the intended outcome and benefits. The risks of the procedure, including the possibility of an unsuccessful procedure, as well as the risk of not doing the procedure, were discussed. The patient was given the opportunity to ask questions regarding the procedure and appeared competent to make decisions. A signed consent form documenting this discussion was placed in the medical record. A time-out procedure was performed. The patient was placed supine on the fluoroscopy table. Prior to prepping the patient, a limited sonogram of the right arm was performed to choose appropriate access, and this arm was prepped and draped in the usual sterile fashion. All elements of maximal sterile barrier technique followed including use of cap, mask, sterile gown, sterile gloves, a sterile full body drape and hand hygiene. Also followed skin preparation with 2% chlorhexidine for cutaneous antisepsis, and sterile ultrasound preparation with sterile gel and probe cover when applicable. Venous access was achieved into the right brachial vein using ultrasound and fluoroscopic guidance. The 0.018 measuring wire from the PICC was advanced into the cavoatrial junction. The needle was removed and replaced with the peel away sheath. The intravascular length was measured and the catheter was trimmed to the correct length. The inner dilator was removed and the PICC was advanced over the wire into the cavoatrial junction. The peel away sheath and wire were removed. The catheter was tested successfully and secured to the skin with its tip in the cavoatrial junction. A spot image was taken. The patient tolerated the procedure well. FINDINGS: 1. Patent right brachial vein. Diminutive right basilic vein. 2. Successful placement of a 4-Fr single lumen PICC that measures 46 cm in length. IMPRESSION: Successful placement of a PICC. PLAN: 1. The patient was stable after the procedure and was transferred to the interventional recovery area. The patient will be transferred to the floor. 2. The catheter may be used immediately.
== END 2018-03-28 17:24 | disposition home health service (06) | DRG 623 ==
LOC: STS 02:04 → PACUH 14:40 → 2NB 14:40 → ENRESERV 15:45 → ENTRNSPT 15:55 → EDTRNSPTSTS 16:09 → EDTRNSPT 16:09 → 2NB 16:24 → CMPTRNSPT 16:29 → 2NB 03-28 17:24
PROC: 0JXQ0ZZ Transfer Right Foot Subcutaneous Tissue and Fascia, Open Approach (ICD-10-PCS; principal; 2018-03-27)
PROC: 3E0T3BZ Introduction of Anesthetic Agent into Peripheral Nerves and Plexi, Percutaneous Approach (ICD-10-PCS; principal; 2018-03-27)
PROC: 0JBQ0ZZ Excision of Right Foot Subcutaneous Tissue and Fascia, Open Approach (ICD-10-PCS; principal; 2018-03-27)
DX: E11.69 Type 2 diabetes mellitus with other specified complication (principal); K86.1 Other chronic pancreatitis; M86.671 Other chronic osteomyelitis, right ankle and foot; Z79.4 Long term (current) use of insulin; F41.9 Anxiety disorder, unspecified; F32.9 Major depressive disorder, single episode, unspecified; I25.10 Atherosclerotic heart disease of native coronary artery without angina pectoris; I10 Essential (primary) hypertension; E11.42 Type 2 diabetes mellitus with diabetic polyneuropathy; D64.9 Anemia, unspecified
CPT/HCPCS: 2NBP; 87070; 87075; 87184; 77001; 87071; 87147; C1769; J0690; J1642; J1644; J1815; J2001; J3490